=== PATIENT | male | born 1945 | race Caucasian/White ===

== ENCOUNTER 2020-08-20 08:34 | Outpatient (RCR) | payer MEDICARE, SELFPAY ==
[2016-08-11 14:05] VITALS: BMI 27.6
[2020-08-20] MEDS: COVID-19 VACC, MRNA(PFIZER)/PF 30 MCG/0.3 ML SYRINGE IM (14:33)
[2020-09-10] MEDS: COVID-19 VACC, MRNA(PFIZER)/PF 30 MCG/0.3 ML SYRINGE IM (14:18)
== END 2020-11-17 23:59 ==
LOC: IMMUN 08:34
PROVIDERS: PCP Family Medicine; Referring Provider Family Medicine; Visit Provider Family Medicine
DX: Z23 Encounter for immunization (principal)
CPT/HCPCS: 0001A; 0002A; 91300

== ENCOUNTER 2021-06-05 09:05 | Emergency (ER) | payer MEDICARE, SELFPAY ==
[2021-06-05 09:06] VITALS: BP 120/71; PULSE 88; RESP 17; TEMP 36.4; O2SAT 96; BMI 25.8
--- NOTE | 2021-06-05 09:27 | EKG12_ITS ---
Test Reason : Blood Pressure : / mmHG Vent. Rate : 088 BPM Atrial Rate : 088 BPM P-R Int : 144 ms QRS Dur : 076 ms QT Int : 348 ms P-R-T Axes : 050 008 051 degrees QTc Int : 421 ms Normal sinus rhythm Normal ECG Confirmed by PATRICIA VANG, ELSA ([id number]), health editor MEETA BROWN ([id number]) on 06/08/2021 9:43:52 AM Referred By: PC Confirmed By:ELSA GOMEZ MD
--- NOTE | 2021-06-05 09:28 | EDS_ITS ---
HPI History of Present Illness Chief Complaint: Syncope Narrative Narrative: Patient presents with generalized weakness this morning, he got out of bed to go to the bathroom, he felt lightheaded, he was standing up and had a fall he thinks he had a syncopal episode went to help him he got up but still felt lightheaded he about fell on the way back to the bed. Otherwise he arrives to the ED. He has no chest pain or shortness of breath. He did not hit his head he has no neck pain. He has no DVT PE or PE risk factors she has no lower extremity edema. No abdominal pain or back pain or pleuritic components or tearing sensation he denies any palpitations. PFSH PFSH Home Medications levetiracetam 500 mg PO BID 02/15/16 [History Last Taken 08/11/16] losartan 50 mg PO DAILY 02/15/16 [History Last Taken 08/11/16] levothyroxine [Euthyrox] 100 mcg PO DAILY 06/05/21 [History Last Taken Unknown] Allergy/AdvReac Type Severity Reaction Status Date / Time No Known Allergies Allergy Verified 08/11/16 14:07 Social History Smoking Status: Former smoker ROS ROS ED ROS Narrative Past medical history: Reviewed, significant for history of intracranial hemorrhage, he is on Keppra, otherwise he is relatively healthy. Medications: Reviewed Social history: Noncontributory Review of systems: All systems negative except as indicated General: No fever. He does feel lightheaded when he stands up Eyes: No visual changes ENT: No upper airway congestion, normal voice Neck: No neck pain Cardiovascular: No chest pain. Syncope as in HPI. Respiratory: No shortness of breath or cough Gastrointestinal: No abdominal pain, nausea vomiting or diarrhea Genitourinary: No dysuria Musculoskeletal: Denies myalgias no difficulty with ambulation Skin: No rash Neurological: No memory loss, confusion or any focal weakness Psych: No recent behavioral changes Hematologic: No easy bleeding or easy bruising EXAM Physical Exam Narrative Exam Narrative: Physical exam General: Well nourished, Well developed, No Acute Distress Head: Normocephalic, Atraumatic Eyes: Conjunctiva not pale ENT: Dry mucous membranes Neck: Supple, Nontender, No lymphadenopathy Cardiovascular: Regular rate, Regular rhythm Respiratory: No distress, CTA bilaterally Abdomen: Soft, Nontender, Nondistended Back: Nontender, Normal Inspection. Negative for: CVA tenderness Extremities: Nontender, No edema Skin: Normal color, No rash Neurological: Alert, Normal Strength, Normal Sensation Psychological: Normal affect Const Vital Signs: 06/05/21 09:06 06/05/21 09:15 Temperature 97.6 F L Temperature Source Temporal Pulse Rate 88 Respiratory Rate 17 Respiratory Effort Normal Non-Labored Respiratory Pattern Normal Blood Pressure 120/71 Blood Pressure Mean 87 Pulse Ox 96 Oxygen Delivery Method Room Air MDM MDM MDM Narrative Medical decision making narrative: I personally did orthostatic vitals at the bedside, the blood pressure essentially stayed the same but his heart rate went from 89 to 112, he was quite symptomatic, he felt quite light headed when he stood up. After liter fluids I reevaluated him, his heart rate was again around 88 when I walked in the room when I stood him up he went to 95 and he was not symptomatic. The rest of his work-up is unremarkable, I believe the syncopal episode is likely secondary to dehydration he otherwise appears well and will be discharged in stable condition. If anything changes he is to return for Lab Data Labs: Laboratory Results - last 24 hr 06/05/21 06/05/21 09:16 09:16 WBC 6.9 RBC 5.16 Hgb 15.1 Hct 46.0 MCV 89.1 MCH 29.3 MCHC 32.8 RDW Std Deviation 44.7 H RDW Coeff of Víctor 13.6 Plt Count 186 MPV 10.6 Immature Gran % (Auto) 0.900 Neut % (Auto) 74.1 H Lymph % (Auto) 12.9 L [place] % (Auto) 11.3 H Eos % (Auto) 0.4 Baso % (Auto) 0.4 Absolute Neuts (auto) 5.1 Absolute Lymphs (auto) 0.89 Nucleated RBC % 0 Sodium 137 Potassium 4.4 Chloride 106 Carbon Dioxide 27.0 Anion Gap 4 L BUN 20 H Creatinine 1.29 Estim Creat Clear Calc 49.48 Est GFR (MDRD) Af Amer 70 Est GFR (MDRD) Non-Af 58 L BUN/Creatinine Ratio 15.5 Glucose 128 H Calcium 8.8 Total Bilirubin 0.50 AST 19 ALT 18 Alkaline Phosphatase 90 Troponin I High Sens 7 Total Protein 7.4 Albumin 3.3 Globulin 4.1 Albumin/Globulin Ratio 0.8 L EKG Initial EKG: Comments: Sinus rhythm with a rate of 88. Normal WA and QTc intervals. No LVH. No Brugada. No ischemic changes. Interpreted by emergency doctor. Discharge Plan Triage Chief Complaint: Syncope ED Provider: Akhil Roblero Dx/Rx/DC Orders Clinical Impression: Syncope, Dehydration Instructions: Causes of Syncope, Dehydration Prescriptions: No Action losartan 50 MG tablet 50 mg PO DAILY RF: 0 levetiracetam 500 MG tablet 500 mg PO BID RF: 0 levothyroxine [Euthyrox] 100 mcg tablet 100 mcg PO DAILY RF: 0 Primary Care Provider: Chrissy Elizabeth Referrals: Chrissy Elizabeth MD [Primary Care Provider] - Disposition Disposition: Home, Self Care
[2021-06-05 09:37] LABS: Absolute Lymphocyte Count 0.89 X10^3/uL (0.83-4.51); Absolute Neutrophil Count 5.1 X10^3/uL (2.0-7.7); Basophil# 0.03 X10^3/uL; Basophil% 0.4 % (0-1); Eosinophil# 0.03 X10^3/uL; Eosinophils% 0.4 % (0-5); Hemoglobin 15.1 g/dL (13.0-16.5); Lymphocyte # 0.89 X10^3/ul (0.83-4.51); Lymphocyte % 12.9 % (19-41); Mean Corp Hgb Conc 32.8 g/dL (32-36); Mean Corpuscular Hgb 29.3 pg (27.0-32.0); Mean Corpuscular Volume 89.1 fL (80-94); Mean Platelet Vol. 10.6 fl (6.2-12.0); Monocyte# 0.78 X10^3/uL; Monocyte% 11.3 % (0-10); NRBC Flagged by Analyzer 0 % (0-5); Neutrophil # 5.11 X10^3/uL (2.7-7.7); Neutrophil % 74.1 % (47-70); Platelet Count 186 K/mm3 (150-450); RBC Distribution Width CV 13.6 % (11.6-14.6); RBC Distribution Width SD 44.7 fl (35.1-43.9); Red Blood Count 5.16 M/mm3 (4.6-6.2); White Blood Count 6.9 K/mm3 (4.4-11.0)
[2021-06-05] MEDS: 0.9% Normal Saline 1,000 ML 1000 ML IV (09:53)
[2021-06-05 09:54] LABS: ALB/GLOB Ratio 0.8 RATIO (0.9-2.4); AST(SGOT) 19 U/L (15-37); Alanine Aminotransfer ALT/SGPT 18 U/L (16-61); Albumin, Serum 3.3 g/dL (3.2-5.0); Alkaline Phosphatase 90 U/L (45-117); Anion Gap 4 (5-15); BUN 20 mg/dL (7-18); BUN/Creat Ratio 15.5 RATIO (10-20); Calcium,Total 8.8 mg/dL (8.5-10.1); Chloride 106 mmol/L (98-107); Creatinine, Serum 1.29 mg/dL (0.70-1.30); EST Glomerular Filtration Rate 58 mL/min (>60); Est Glom Filt Rate - Afr Amer 70 mL/min (>60); Estimated Creatinine Clearance 49.48 ml/min; Globulin 4.1 g/dL (2.2-4.2); Glucose 128 mg/dL (74-106); Potassium 4.4 mmol/L (3.5-5.1); Protein, Total 7.4 g/dL (6.4-8.2); Sodium Level 137 mmol/L (136-145); Troponin-I HS 7 pg/mL (3.0-78.0)
[2021-06-05 10:47] VITALS: BP 134/62; PULSE 71; RESP 15; O2SAT 98
== END 2021-06-05 10:47 | disposition home or self-care (01) ==
PROVIDERS: Emergency Provider Emergency Medicine; PCP Family Medicine
DX: R55 Syncope and collapse (principal); E86.0 Dehydration; Z87.891 Personal history of nicotine dependence; Z86.73 Personal history of transient ischemic attack (TIA), and cerebral infarction without residual deficits; Z79.899 Other long term (current) drug therapy
CPT/HCPCS: 80053; 84484; 85025; 93005; 99285; J7030; A4216

== ENCOUNTER 2021-08-31 10:41 | Inpatient (IN) | payer MEDICARE, SELFPAY ==
[2021-08-31] VITALS (16 sets, daily range): BP systolic 107–152; BP diastolic 56–80; PULSE 63–76; RESP 16–28; TEMP 36.4–36.8; O2SAT 95–100; BMI 26.7; BMI 26.3
--- NOTE | 2021-08-31 10:50 | EDS_ITS ---
HPI History of Present Illness Chief Complaint: Chest Pain Detail of Chief Complaint: Chest pain that started last evening Informant: patient Narrative Narrative: Patient presents to the emergency department complaint of chest pain that started last evening around 11 PM. Patient states that it lasted for a couple of hours. Patient did take Tylenol and seemed to ease off and he was able to sleep all night. He did not have the pain when he woke up. Patient noticed that the pain came back when he started walking this morning. Describes a dull all heavy discomfort in the left side of his chest without any radiation. He denies shortness of breath or diaphoresis. Patient tells me he had a similar pain couple weeks ago when he was shoveling snow. He has no heart history otherwise. There is a family history of heart disease. Prior Similar Symptoms: Yes CVD Risk Factors: Positive for Hypertension PFSH PFSH Home Medications levetiracetam 500 mg PO BID 02/15/16 [History Last Taken 08/11/16] losartan 50 mg PO DAILY 02/15/16 [History Last Taken 08/11/16] levothyroxine [Euthyrox] 100 mcg PO DAILY 06/05/21 [History Last Taken Unknown] Allergy/AdvReac Type Severity Reaction Status Date / Time No Known Allergies Allergy Verified 08/31/21 10:47 Surgical History (Updated 08/31/21 @ 10:47 by Tami Kaur) Hx of brain surgery Social History Smoking Status: Former smoker ROS ROS ED Review of Systems ROS Unobtainable: other Constitutional Constitutional ED: Reports lethargy; Denies chills, fever(s), sweats or weight loss Eyes Eyes: Denies blurry vision, change in vision or diplopia ENT ENT ED: Denies rhinorrhea or sore throat Cardiovascular Cardiovascular: Reports chest pain; Denies orthopnea or racing heartbeat Respiratory/Chest Respiratory/Chest: Reports dyspnea and dyspnea on exertion; Denies cough, orthopnea or sputum Gastrointestinal Gastrointestinal: Denies abdominal pain, diarrhea, nausea or vomiting Genitourinary Genitourinary ED: Denies dysuria, hematuria or urinary frequency Musculoskeletal Musculoskeletal: Denies arthralgias, back pain, myalgias or neck pain Integumentary Denies abscess, Abrasions or rash Neurologic Neurologic: Denies headache(s) or weakness Psychiatric Psychiatric: Denies anxiety, depression or suicidal thoughts Endocrine Endocrinology: Denies polydipsia, polyphagia or polyuria Hematologic/Lymphatic Hematologic/Lymphatic: Denies easy bleeding, easy bruising or lymphadenopathy Allergic/Immunologic Allergic/Immunologic ED: Denies mouth swelling, tongue swelling or urticaria EXAM Physical Exam Const Vital Signs: 08/31/21 10:42 08/31/21 10:54 08/31/21 11:06 Temperature 97.5 F L Temperature Source Temporal Pulse Rate 76 Respiratory Rate 28 H Respiratory Pattern Tachypnea Blood Pressure 152/80 H Blood Pressure Mean 104 Pulse Ox 100 Oxygen Delivery Method Room Air Nasal Cannula Oxygen Flow Rate (L/min) 2 Positive well nourished and well developed General Appearance ED: well developed and NAD HEENT Reports TM's clear and moist mucous membranes normocephalic and atraumatic; Negative for trauma or tenderness Tympanic Membrane ED: Yes TM's clear Eyes PERRL and EOMs intact bilaterally General Eye ED: Negative for pale conjunctiva or scleral icterus Neck no lymphadenopathy, supple and no JVD General: Negative for tenderness Chest Wall inspection of chest normal and palpation of chest normal Chest: Negative for tenderness Resp normal respiratory effort and clear to auscultation bilaterally Effort and Inspection: Negative for respiratory distress or pain with movement Auscultation: Negative for rhonchi, wheezes or diminished lung sounds Cardio regular rate, regular rhythm, S1 normal heart sound, S2 normal heart sound and no murmurs Peripheral Pulses: pulses 2+ throughout GI normal to inspection, nondistended, normoactive bowel sounds, soft to palpation, non-tender, non-distended and no masses Back/Spine no CVA tenderness and no thoracic nor lumbar tenderness Extremity normal to inspection General Extremety ED: Negative for edema General Extremity: Negative for edema Neuro oriented x3, CN's II-XII intact bilaterally, no sensory deficits noted and gait normal Sensorium / Orientation: awake, alert, oriented to person, oriented to place and oriented to time Motor Exam: strength 5/5 throughout and strength abnormal Psych mental status grossly normal Skin no rashes or lesions noted and no wounds Heart Score History: Highly Suspicious ECG: Normal Age: >/= 65 years Risk Factors: 1 or 2 Risk Factors Troponin: >/=3 x Normal Limit Score: 7 MDM MDM MDM Narrative Medical decision making narrative: IV line established on arrival. Patient received aspirin. Patient was noted to have elevated troponin. Patient started on a heparin drip and was given an inch of Nitropaste to the anterior chest wall. Case will be discussed with hospitalist evaluate for admission for non- STEMI. Lab Data Attestation: I reviewed the patient's lab results. Labs: Laboratory Results - last 24 hr 08/31/21 08/31/21 08/31/21 10:45 10:45 10:45 WBC 7.2 RBC 5.30 Hgb 16.2 Hct 47.6 MCV 89.8 MCH 30.6 MCHC 34.0 RDW Std Deviation 45.8 H RDW Coeff of Víctor 13.9 Plt Count 273 MPV 10.0 Immature Gran % (Auto) 1.100 H Neut % (Auto) 62.7 Lymph % (Auto) 23.5 [place] % (Auto) 5.8 Eos % (Auto) 6.1 H Baso % (Auto) 0.8 Absolute Neuts (auto) 4.5 Absolute Lymphs (auto) 1.70 Nucleated RBC % 0 D-Dimer Quant (PE/DVT) 0.50 H Sodium 138 Potassium 4.2 Chloride 106 Carbon Dioxide 28.0 Anion Gap 4 L BUN 19 H Creatinine 1.15 Estim Creat Clear Calc 55.50 Est GFR (MDRD) Af Amer 80 Est GFR (MDRD) Non-Af 66 BUN/Creatinine Ratio 16.5 Glucose 147 H Calcium 9.7 Troponin I High Sens 569 H* Radiography Chest X-Ray - ED: 1 View Diagnostic Testin view chest x-ray obtained interpreted by myself as no acute disease process. Official report from radiology pending EKG Initial EKG: Attestation: I personally reviewed and interpreted this EKG as follows: Comments: Sinus rhythm with a rate of 78 bpm with no acute ST segment changes Discharge Plan Triage Chief Complaint: Chest Pain ED Provider: Michael Dunham Dx/Rx/DC Orders Clinical Impression: Chest pain, Non-ST elevated myocardial infarction (non-STEMI) Prescriptions: No Action losartan 50 MG tablet 50 mg PO DAILY RF: 0 levetiracetam 500 MG tablet 500 mg PO BID RF: 0 levothyroxine [Euthyrox] 100 mcg tablet 100 mcg PO DAILY RF: 0 Primary Care Provider: Chrissy Elizabeth Referrals: Chrissy Elizabeth MD [Primary Care Provider] - Disposition Disposition: Acute Care [facility]
[2021-08-31 11:00] LABS: Absolute Neutrophil Count 4.5 X10^3/uL (2.0-7.7); Basophil# 0.06 X10^3/uL; Basophil% 0.8 % (0-1); Eosinophil# 0.44 X10^3/uL; Eosinophils% 6.1 % (0-5); Hematocrit 47.6 % (40-54); Hemoglobin 16.2 g/dL (13.0-16.5); Lymphocyte % 23.5 % (19-41); Mean Corpuscular Hgb 30.6 pg (27.0-32.0); Mean Corpuscular Volume 89.8 fL (80-94); Monocyte# 0.42 X10^3/uL; Monocyte% 5.8 % (0-10); NRBC Flagged by Analyzer 0 % (0-5); Neutrophil # 4.53 X10^3/uL (2.7-7.7); Neutrophil % 62.7 % (47-70); Platelet Count 273 K/mm3 (150-450); RBC Distribution Width CV 13.9 % (11.6-14.6); RBC Distribution Width SD 45.8 fl (35.1-43.9); White Blood Count 7.2 K/mm3 (4.4-11.0)
--- NOTE | 2021-08-31 11:00 | EKG12_ITS ---
Test Reason : CP Blood Pressure : / mmHG Vent. Rate : 078 BPM Atrial Rate : 078 BPM P-R Int : 150 ms QRS Dur : 078 ms QT Int : 362 ms P-R-T Axes : 057 038 071 degrees QTc Int : 412 ms Normal sinus rhythm Normal ECG Confirmed by PATRICIA VANG, ELSA ([id number]), continuity editor MEETA BROWN ([id number]) on 09/02/2021 9:15:55 AM Referred By: LOUIS Confirmed By:ELSA GOMEZ MD
[2021-08-31] MEDS: Aspirin 81 MG TAB.CHEW 324 MG PO (11:01)
[2021-08-31] MEDS: 0.9% Normal Saline 1,000 ML 150 ML IV (11:01)
--- NOTE | 2021-08-31 11:15 | RAD_ITS ---
STUDY: X-RAY CHEST REASON FOR EXAM: Male, 76 years old. Chest pain TECHNIQUE: Single AP portable view of the chest. COMPARISON: Comparison is made with prior study dated 04/03/2012. FINDINGS: EKG electrodes are seen. Stable mild left lung base suggestive of scarring. There is no demonstrated pleural abnormality. Normal size heart. Normal mediastinum and lito. Normal visualized pulmonary arteries. There is atherosclerotic calcification of the aortic arch with tortuosity. There are diffuse degenerative changes of the visualized thoracic spine. Normal visualized ribs, clavicles, and shoulders. There is no demonstrated abnormality of the visualized soft tissue structures of the upper abdomen. RAD/Chest 1 View (Portable) IMPRESSION: No acute abnormality is seen. Electronically Signed: Britton Toro MD at 12:12 EDT ,
[2021-08-31 11:27] LABS: Anion Gap 4 (5-15); BUN 19 mg/dL (7-18); BUN/Creat Ratio 16.5 RATIO (10-20); Calcium,Total 9.7 mg/dL (8.5-10.1); Chloride 106 mmol/L (98-107); Creatinine, Serum 1.15 mg/dL (0.70-1.30); EST Glomerular Filtration Rate 66 mL/min (>60); Est Glom Filt Rate - Afr Amer 80 mL/min (>60); Glucose 147 mg/dL (74-106); Potassium 4.2 mmol/L (3.5-5.1); Sodium Level 138 mmol/L (136-145); Troponin-I HS 569 pg/mL (3.0-78.0)
--- NOTE | 2021-08-31 11:38 | NURSING ---
DR SANTANA FOR DR KELLY
--- NOTE | 2021-08-31 11:48 | CASEMGMT ---
According to the [facility] website, the following are in-network tertiary facilities: [facility], [facility], [facility], [facility], [facility], [facility], [facility], [facility], and . Rupesh YOUNG CM
[2021-08-31] MEDS: Heparin Injection (Vial) 5,000 UNIT/ML VIAL 6000 UNIT IV (11:51)
--- NOTE | 2021-08-31 11:53 | NURSING ---
PCU ESTHER ACS, NSTEMI
[2021-08-31] MEDS: Nitroglycerin Oint 1 INCH PACKET TD ×2 (11:55→22:11)
[2021-08-31 12:09] LABS: Prothrombin Time (Protime)PT. 12.9 SECONDS (11.7-14.9)
--- NOTE | 2021-08-31 12:23 | CON.PCM.CA_ITS ---
Assessment & Plan Assessment/Plan (1) Non-ST elevated myocardial infarction (non-STEMI): PLAN: The patient presents with symptoms concerning for unstable angina pectoris and objective findings concerning for an acute non-ST segment elevation WV. His cardiac enzymes do not appear to be explained by another obvious etiology at this time. His ECG demonstrates no acute electrocardiographic changes. He has been placed on additional medical therapy by the [facility] emergency department staff with aspirin, nitroglycerin ointment, and IV heparin. He has been recommended for further evaluation with diagnostic cardiac catheterization. The procedure and risk were discussed with him. He was agreeable to this approach. (2) HTN (hypertension): PLAN: The patient has a history of hypertension. He states he has been on antihypertensive therapy with losartan. (3) Cerebral arteriovenous malformation: PLAN: The patient appears to have a history of cerebral AV malformation. He has undergone a remote evaluation and care for this at the [facility]-2010. (4) History of intracranial hemorrhage: PLAN: The pain is a history of intracranial hemorrhage related to the aforementioned diagnosis. 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 He has had no recurrent [employer] events since that time. Addt'l Comments The patient's case was discussed and reviewed with patient, spouse, and Dr. Vilchis. This note was generated using a voice recognition system and there may be incorrect words, spelling or punctuation that were not noted when reviewing the office note prior to saving. 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 The patient states that he has been well until approximately 2 weeks ago. At that time he was shoveling snow. He developed chest discomfort. He went inside, got warm, and rested. He was able to return outside and shovel snow although only for a brief period of time. He had to stop again, go inside, get warm, and rest. He states both times when he was resting his discomfort dissipated. Since that time he has noted intermittent chest discomfort. He had chest discomfort yesterday evening. He took aspirin x2. He was eventually able to sleep. He noted this morning after being awake he had recurrent left-sided chest discomfort. He presented to a local urgent care. He states that he was told at the time that there was nothing they could do for me . He went to get something to eat. After eating he subsequently presented to the emergency department for further evaluation. He notes his chest discomfort was left precordial. It did not radiate. He does not recall having any associated nausea, emesis, or diaphoresis. He denies any orthopnea, PND, or peripheral pitting edema. There has been no near-syncope or syncope recently. He states that on 2020 he had a syncopal event. He states he was evaluated at the emergency department and told it was related to dehydration. He notes since his WINDOWS INF[employer] ENGINEER surgery performed in 2010 he has had no recurrent W[employer]OWS [employer]ER events and has not required any long-term WINDOWS [employer]ER follow-up. Upon presentation he was evaluated. He had an abnormal troponin I level of 569. His ECG demonstrated sinus rhythm with no acute ECG changes. His chest x-ray did not appear to demonstrate any acute radiologic findings. He was referred for further evaluation with diagnostic cardiac catheterization. [facility] Medical History (Updated 08/31/21 @ 12:[address] Akhil Mooney MD) HTN (hypertension) Home Medications levetiracetam 500 mg PO BID 02/15/16 [History Last Taken 08/11/16] losartan 50 mg PO DAILY 02/15/16 [History Last Taken 08/11/16] levothyroxine [Euthyrox] 100 mcg PO DAILY 06/05/21 [History Last Taken Unknown] Allergy/AdvReac Type Severity Reaction Status Date / Time No Known Allergies Allergy Verified 08/31/21 10:47 Family History (Updated 08/31/21 @ 12:[address] Akhil Mooney MD) Mother CAD (coronary artery disease) Surgical History Hx of brain surgery Social History Smoking Status: Former smoker ROS Constitutional Constitutional: Reports as per HPI Eyes Eyes: Reports as per HPI ENT HEENT: Reports as per HPI Cardiovascular Cardiovascular: Reports chest pain, chest pain at rest and chest pain with activity Respiratory/Chest Respiratory/Chest: Reports none Gastrointestinal Gastrointestinal: Reports none Genitourinary Genitourinary: Reports none Musculoskeletal Musculoskeletal: Reports none Integumentary Integumentary: Reports none Neurologic Neurologic: Reports none Psychiatric Psychiatric: Reports none Physical Exam Const alert, oriented x3 and healthy appearing Orientation / Consciousness: awake HEENT normocephalic, head/scalp atraumatic and hearing grossly normal bilaterally Eyes PERRL and EOMs intact bilaterally Neck full ROM, supple and no JVD Resp clear to auscultation bilaterally Cardio regular rate, regular rhythm, S1 normal heart sound and S2 normal heart sound GI normal to inspection, nondistended, normoactive bowel sounds Extremity no pedal edema Skin no rashes or lesions noted Neuro oriented x3, moves all extremities, no focal motor deficits and no sensory deficits noted Psych mental status grossly normal Risk Stratification Risk Stratification Applicable: Yes Age >/= 65: Yes >/= 3 CAD Risk Factors (HTN, HLD, DM, family hx of CAD, or current smoker): No Aspirin Use in the Past 7 Days: No Severe Angina (>/= episodes in 24 hours): Yes EKG ST Changes >/= 0.5mm: No Positive Cardiac Marker: Yes RUTHIE Risk Stratification Score: 3 RUTHIE % Risk: 13% Risk Procedure Criteria Type of Procedure Procedure Type: Elective Elective Risks - COVID COVID Risk Discussion: The surgeon/proceduralist and patient have discussed in detail the risk of exposure to and/or potential harm posed by the COVID-19 virus with having a surgery/procedure at this time versus the risk of delaying the surgery/procedure. It is not possible to know either the risk of delaying the surgery or procedure or chance of getting an infection with perfect accuracy, but a joint decision was made between the patient and the surgeon/proceduralist to proceed at this time with the scheduled surgery/procedure as indicated on the consent form. Objective Data Vital Signs: Vital Signs Temp Pulse Resp BP Pulse Ox 97.5 F L 76 28 H 131/75 H 100 08/31/21 10:42 08/31/21 11:55 08/31/21 10:42 08/31/21 11:55 08/31/21 10:42 Oxygen Flow Rate (L/min) 2 Oxygen Delivery Method Nasal Cannula Weight: 180 lb 15.992 oz Body Mass Index (BMI) 26.7 Lab / Micro Data Result Diagrams: 08/31/21 10:45 08/31/21 10:45 Labs: Laboratory Results - last 24 hr 08/31/21 10:45: WBC 7.2, RBC 5.30, Hgb 16.2, Hct 47.6, MCV 89.8, MCH 30.6, MCHC 34.0, RDW Std Deviation 45.8 H, RDW Coeff of Víctor 13.9, Plt Count 273, MPV 10.0, Immature Gran % (Auto) 1.100 H, Neut % (Auto) 62.7, Lymph % (Auto) 23.5, [place] % (Auto) 5.8, Eos % (Auto) 6.1 H, Baso % (Auto) 0.8, Absolute Neuts (auto) 4.5, Absolute Lymphs (auto) 1.70, Nucleated RBC % 0 08/31/21 10:45: Sodium 138, Potassium 4.2, Chloride 106, Carbon Dioxide 28.0, Anion Gap 4 L, BUN 19 H, Creatinine 1.15, Estim Creat Clear Calc 55.50, Est GFR (MDRD) Af Amer 80, Est GFR (MDRD) Non-Af 66, BUN/Creatinine Ratio 16.5, Glucose 147 H, Calcium 9.7, Troponin I High Sens 569 H* 08/31/21 10:45: D-Dimer Quant (PE/DVT) 0.50 H 08/31/21 10:45: PT 12.9, INR 1.0, APTT 34.0 Cardiology Labs/Tests 08/31/21 10:45: WBC 7.2, RBC 5.30, Hgb 16.2, Hct 47.6, MCV 89.8, MCH 30.6, MCHC 34.0, Plt Count 273, MPV 10.0, Immature Gran % (Auto) 1.100 H, Neut % (Auto) 62.7, Lymph % (Auto) 23.5, [place] % (Auto) 5.8, Eos % (Auto) 6.1 H, Baso % (Auto) 0.8, Absolute Neuts (auto) 4.5, Nucleated RBC % 0 08/31/21 10:45: Sodium 138, Potassium 4.2, Chloride 106, Carbon Dioxide 28.0, Anion Gap 4 L, BUN 19 H, Creatinine 1.15, Est GFR (MDRD) Af Amer 80, Est GFR (MDRD) Non-Af 66, BUN/Creatinine Ratio 16.5, Glucose 147 H, Calcium 9.7 08/31/21 10:45: D-Dimer Quant (PE/DVT) 0.50 H 08/31/21 10:45: PT 12.9, INR 1.0, APTT 34.0 Rhythm: Sinus rhythm EKG: Sinus rhythm Radiography Diagnostic Testing: Radiology Impression Chest X-Ray 08/31/21 11:15 IMPRESSION: No acute abnormality is seen. Electronically Signed: Britton Toro MD at 12:12 EDT ,
[2021-08-31] MEDS: 0.9% Normal Saline 1,000 ML 75 ML IV (14:08)
--- NOTE | 2021-08-31 14:21 | CL.D_ITS ---
Patient Name: DERICK ROGER Study Date: 08/31/2021 Performing: Akhil Mooney MD Ht: 69 inches 175 cm : 1945 Wt: 181 lbs 82 kg Age: 76 Gender: male BSA: 1.98 PROCEDURE(S) PERFORMED [id number])LHC/COR/LV CLINICAL PROFILE AND INDICATIONS Indications: ACS <= 24 hrs, Worsening Angina, Suspected CAD Heart Failure: None Stress/Imaging Stress/Image Study Performed: No Angina Classification Anginal Classification w/in 2 Weeks: CCS IV CAD Presentations: Non-STEMI. CONCLUSIONS Normal Left Ventricular End Diastolic Pressure Normal LV size, wall motion,and systolic function LVEF: by LV gram 65 % [place] Multivessel CAD RECOMMENDATIONS Risk factor modification Medical therapy Surgery consult for coronary revascularization DESCRIPTION OF PROCEDURE The patient arrived to the procedure lab. The risks and benefits of the procedure as well as a full d escription of our services here and current unavailability of surgical backup were fully explained to the patient and/or their significant other prior to the catheterization. The Timeout was completed, verifying the correct patient and procedure. The patient's procedural site was prepped and draped in the usual fashion. Local anesthetic was given subcutaneously to right radial region with Lidocaine 2% . Using a modified Seldinger technique, arterial access was obtained via the right radial artery, a 6 Fr sheath was inserted. Left Coronary Artery selective angiography was performed in multiple views u sing a 5 Fr. 4.0 [place] catheter. Right Coronary Artery selective angiography was then performed in mu ltiple views using a 5 Fr. JR 4 catheter. Left Ventriculography was performed in ALICEA projection using a 5 Fr. Pigtail catheter. LV to AO pullback pressures were then recorded.The arterial sheath was pulled and a TR Band was applied for hemostasis - 10cc air CORONARY ANGIOGRAPHY DOMINANCE: Right Dominant LEFT HEART ASSESSMENT Left Ventricular Ejection Fraction: by LV Gram 65 % Normal LV wall motion Normal Left Ventricular End Diastolic Pressure LVEDP: 4 mmHg LEFT MAIN: Mild calcification, distal: 75 % Stenosis LEFT ANTERIOR DESCENDING ARTERY: Mild luminal irregularities PROX LAD: Mild calcification CIRCUMFLEX ARTERY: PROX CIRC: Mild luminal irregularities OM 1: Proximal - 85 % Stenosis RIGHT CORONARY ARTERY: MID RCA: is occluded DISTAL RCA: /PRDA/RAVS/RPL: fills from left to right collateral flow COLLATERAL FLOW: Collateral flow from Left to Right AORTIC ROOT: Angiographically normal COMPLICATIONS No Complications PROCEDURE MEDICATIONS Versed 1 mg IV Fentanyl 50 mcg IV Oxygen: 2 L/min via nasal cannula Heparin 25,000u / 250ml D5W discontinued 08/31/2021 12:52:22 Heparin given IA 08/31/2021 13:05:06 Verapamil 2.5mg, Ntg 100mcgs, 3000 units of Heparin given IA 08/31/2021 13:05:06 SUMMARY OF HEMODYNAMIC DATA Time AIR REST ECG 12:46:41 AO 100/61 (79) SA 13:07:52 LV 139/-27, 5 13:17:21 LV 140/-26, 4 13:17:27 LV 135/-21, 10 13:18:39 LV 136/-21, 10 13:18:46 LVp 135/-22, 11 13:18:58 AOp 107/54 (77) 13:19:03 Signed By Akhil Mooney MD On 08/31/2021 14:20:20 Akhil Mooney MD
--- NOTE | 2021-08-31 19:27 | HP.PCM.HOS_ITS ---
HPI - General General Date of Admission: 08/31/21 Date of Service: 08/31/21 Chief Complaint: Chest pain HPI Narrative DERICK ROGER, is a 76 M who presents to the emergency room at [facility] with a chief complaint of chest pain intermittently over the last 2 weeks. Patient had an episode 2 weeks ago when he was shoveling snow and then he had another episode yesterday at rest and then finally today he had another episode while he was walking. Patient states his chest discomfort was located in the left precordial region, and did not radiate, patient denied any nausea or vomiting. He described the chest discomfort as dull and heavy in nature. Work-up was done in the emergency room which showed an elevated tropo migdalia, EKG showed a normal sinus rhythm without evidence of ischemic changes. Patient's chest x-ray was unremarkable. I contacted cardiology and patient underwent a cardiac catheterization directly from the emergency room, this showed triple-vessel disease with a normal LV function, distal left main disease with high-grade stenosis, high-grade stenosis in the LAD, high-grade stenosis in the circumflex artery, and finally right coronary artery occlusion in the distal region with collaterals. It was advised that the patient should be transferred to a tertiary center for evaluation concerning bypass surgery. Patient was admitted to PCU for acute non-STEMI, he will be maintained on an aspirin, a statin, a beta-praveen, and an ARB. Patient will be maintained on a heparin drip. I talked at length with the patient's daughter and who are in the room at the time of my examination. COUNTS INCLUDE 234 BEDS AT THE [facility] Medical History (Updated 08/31/21 @ 16:29 by Geni George) Atherosclerotic heart disease of [place] coronary artery without angina pectoris History of left heart catheterization (LHC) (~08/31/21) HTN (hypertension) Home Medications levetiracetam 500 mg PO BID 02/15/16 [History Last Taken 08/11/16] losartan 50 mg PO DAILY 02/15/16 [History Last Taken 08/11/16] levothyroxine [Euthyrox] 100 mcg PO DAILY 06/05/21 [History Last Taken Unknown] Allergy/AdvReac Type Severity Reaction Status Date / Time No Known Allergies Allergy Verified 08/31/21 10:47 Family History (Updated 08/31/21 @ 12:[address] Akhil Mooney MD) Mother CAD (coronary artery disease) Surgical History Hx of brain surgery Social History Smoking Status: Former smoker ROS Constitutional Constitutional: Denies anorexia, change in weight, fever(s), night sweats or weakness Eyes Eyes: Denies blurry vision, change in vision, discharge from eye(s) or eye pain Cardiovascular Cardiovascular: Reports chest pain; Denies claudication, dyspnea on exertion, edema, lightheadedness or palpitations Respiratory/Chest Respiratory/Chest: Denies cough, dyspnea, hemoptysis, productive cough, shortness of breath at rest or shortness of breath with exertion Gastrointestinal Gastrointestinal: Denies abdominal pain, constipation, diarrhea, hematemesis, hematochezia, melena, nausea or vomiting Genitourinary Genitourinary: Denies dysuria, hematuria, urinary frequency, urinary hesitancy, urinary incontinence or urinary urgency Musculoskeletal Musculoskeletal: Denies back pain, joint pain, joint stiffness, joint swelling, myalgias or neck pain Neurologic Neurologic: Denies abnormal gait, abnormal speech, dizziness, focal weakness, headache(s), loss of vision, numbness, other visual disturbances, paresthesias, syncope or tingling Psychiatric Psychiatric: Denies anxiety, cognitive impairment, depression, irritability, mood swings or suicidal ideation Endocrine Endocrinology: Denies change in body appearance, cold intolerance, excessive sweating, heat intolerance, polydipsia or polyuria Hematologic/Lymphatic Hematologic/Lymphatic: Denies none, anemia, easy bleeding, easy bruising or lymphadenopathy Allergic/Immunologic Allergic/Immunologic: Denies rhinitis, urticaria, eczemia or asthma Vital Signs Vital Signs Vital Signs: 08/31/21 10:42 08/31/21 10:54 08/31/21 11:06 Temperature 97.5 F L Temperature Source Temporal Pulse Rate 76 Respiratory Rate 28 H Respiratory Effort Respiratory Depth Respiratory Pattern Tachypnea Blood Pressure 152/80 H Blood Pressure Mean 104 Blood Pressure Source Blood Pressure Position Blood Pressure Location Pulse Ox 100 Oxygen Delivery Method Room Air Nasal Cannula Oxygen Flow Rate (L/min) 2 08/31/21 11:55 08/31/21 12:35 08/31/21 13:45 Temperature 97.5 F L 98.2 F Temperature Source Temporal Oral Pulse Rate 76 76 67 Respiratory Rate 16 18 Respiratory Effort Respiratory Depth Respiratory Pattern Blood Pressure 131/75 H 131/75 H 117/63 Blood Pressure Mean 93 81 Blood Pressure Source Monitor Blood Pressure Position Semi-Fowlers Blood Pressure Location Left Arm Pulse Ox 100 95 Oxygen Delivery Method Nasal Cannula Room Air Oxygen Flow Rate (L/min) 2 08/31/21 14:00 08/31/21 14:08 08/31/21 14:14 Temperature 98.2 F 98.2 F Temperature Source Oral Oral Pulse Rate 70 66 Respiratory Rate 18 18 Respiratory Effort Normal Non-Labored Respiratory Depth Normal Respiratory Pattern Normal Blood Pressure 123/66 H 122/71 H Blood Pressure Mean 85 88 Blood Pressure Source Monitor Monitor Blood Pressure Position Semi-Fowlers Semi-Fowlers Blood Pressure Location Left Arm Left Arm Pulse Ox 97 97 Oxygen Delivery Method Room Air Room Air Room Air Oxygen Flow Rate (L/min) 08/31/21 14:30 08/31/21 14:31 08/31/21 14:45 Temperature 98.2 F 98.2 F Temperature Source Oral Oral Pulse Rate 69 67 69 Respiratory Rate 18 18 Respiratory Effort Respiratory Depth Respiratory Pattern Blood Pressure 107/56 L 116/59 L Blood Pressure Mean 73 78 Blood Pressure Source Monitor Monitor Blood Pressure Position Semi-Fowlers Semi-Fowlers Blood Pressure Location Left Arm Left Arm Pulse Ox 97 99 Oxygen Delivery Method Room Air Room Air Oxygen Flow Rate (L/min) 08/31/21 15:00 08/31/21 15:30 Temperature 98.0 F 98.0 F Temperature Source Oral Oral Pulse Rate 64 67 Respiratory Rate 18 18 Respiratory Effort Respiratory Depth Respiratory Pattern Blood Pressure 122/61 H 116/58 L Blood Pressure Mean 81 77 Blood Pressure Source Monitor Monitor Blood Pressure Position Semi-Fowlers Supine Blood Pressure Location Left Arm Left Arm Pulse Ox 100 98 Oxygen Delivery Method Room Air Room Air Oxygen Flow Rate (L/min) Weight Weight: 80.9 kg Body Mass Index (BMI) 26.3 Physical Exam Const alert, oriented x3, no apparent distress and healthy appearing General Appearance: cooperative, well kempt and well developed Orientation / Consciousness: awake, oriented to person, oriented to place and oriented to time HEENT normocephalic, head/scalp atraumatic and moist oral mucous membranes Eyes PERRL, EOMs intact bilaterally and conjunctivae normal Neck nuchal rigidity, supple, no JVD, thyroid normal and no carotid bruits General: trachea midline Resp normal respiratory effort, no retractions, no use of accessory muscles and clear to auscultation bilaterally Auscultation: Negative for rales, rhonchi or wheezes Cardio regular rate, regular rhythm, S1 normal heart sound, S2 normal heart sound, no murmurs, no rub and no gallops GI normal to inspection, nondistended, normoactive bowel sounds, soft to palpation, non-tender and non-distended Extremity no clubbing, cyanosis or edema Skin no rashes or lesions noted General Skin Exam: no breakdown Neuro oriented x3, CN's II-XII intact bilaterally, no focal motor deficits and no sensory deficits noted Sensorium / Orientation: awake and alert Speech: speech normal Psych affect normal Results Lab / Micro Data Result Diagrams: 08/31/21 10:45 08/31/21 10:45 Labs: Laboratory Results - last 24 hr 08/31/21 10:45: WBC 7.2, RBC 5.30, Hgb 16.2, Hct 47.6, MCV 89.8, MCH 30.6, MCHC 34.0, RDW Std Deviation 45.8 H, RDW Coeff of Víctor 13.9, Plt Count 273, MPV 10.0, Immature Gran % (Auto) 1.100 H, Neut % (Auto) 62.7, Lymph % (Auto) 23.5, [place] % (Auto) 5.8, Eos % (Auto) 6.1 H, Baso % (Auto) 0.8, Absolute Neuts (auto) 4.5, Absolute Lymphs (auto) 1.70, Nucleated RBC % 0 08/31/21 10:45: Sodium 138, Potassium 4.2, Chloride 106, Carbon Dioxide 28.0, Anion Gap 4 L, BUN 19 H, Creatinine 1.15, Estim Creat Clear Calc 55.50, Est GFR (MDRD) Af Amer 80, Est GFR (MDRD) Non-Af 66, BUN/Creatinine Ratio 16.5, Glucose 147 H, Calcium 9.7, Troponin I High Sens 569 H* 08/31/21 10:45: D-Dimer Quant (PE/DVT) 0.50 H 08/31/21 10:45: PT 12.9, INR 1.0, APTT 34.0 Radiology Impression Chest X-Ray 08/31/21 11:15 IMPRESSION: No acute abnormality is seen. Electronically Signed: Britton Toro MD at 12:12 EDT , Assessment & Plan Assessment/Plan (1) Chest pain: PLAN: 1. [id number] patient was admitted to PCU, we are currently awaiting a bed at [facility] in [place], at the time of this dictation early evening of 08/31/2021, I do not have a bed available, I was told that there may not be a bed for 2 to 3 days. I approached the patient and called the patient's daughter concerning this, they okayed that I try to get the patient in [facility] but unfortunately [facility] has no beds available and they are on diversion. I explained this to the patient's daughter by phone, I had nursing t ell the patient that he would not be transferred to [facility]. #2 occlusive coronary disease-again patient will remain on aspirin, a beta- praveen, a statin, and an ARB. He will also remain on a heparin drip. Patient is chest pain-free at this time. #3 seizure disorder-patient will remain on Keppra at this time #4 essential hypertension-patient is on an ARB #5 hypothyroidism-patient is on Synthroid Charges/Coding Visit Charges Inpatient E&M: 15586 Init Hosp L3
--- NOTE | 2021-08-31 19:36 | ECHOCS_ITS ---
Reason For Study: [place] Procedure This was a 2D Doppler, Color Flow transthoracic echocardiogram. The study was technically difficult. Contrast injection was performed. Exam performed portable in patient room. Left Ventricle Normal LV size. Left ventricular systolic function is normal. The estimated ejection fraction is 65 %. Diastolic function is indeterminate. No regional wall motion abnormalities noted. Right Ventricle Normal RV size. Normal systolic function. Atria Normal left atrium. Normal right atrium. No doppler evidence for ASD. Mitral Valve There is no mitral annular calcification. Normal mitral valve. Trivial mitral valve insufficiency. Tricuspid Valve Normal tricuspid valve. Trivial tricuspid valve insufficiency. Unable to estimate RV systolic pressure/pulmonary artery pressure due to technically difficult study. Aortic Valve The aortic valve is not well visualized. Pulmonic Valve The pulmonic valve is not well visualized. Great Vessels Normal sized aortic root. Pericardium/Pleural No pericardial effusion. Medication Diluted definity 3ml given slow IV push to enhance endocardial definition. MMode/2D Measurements & Calculations LVIDd: 4.3 cm IVSd: 1.2 cm Ao root diam: 3.3 cm LVIDs: 2.9 cm LVPWd: 0.87 cm RVDd: 2.9 cm FS: 32.5 % LAV(MOD-bp): 36.2 ml LVAd ap4: 24.9 cm2 LVAd ap2: 22.7 cm2 LAV(MOD-bp) Indexed: 18.4 ml/m2 LVLd ap4: 6.9 cm LVLd ap2: 7.0 cm LAV(MOD-sp2): 36.7 ml EDV(MOD-sp4): 72.6 ml EDV(MOD-sp2): 60.8 ml LAV(MOD-sp4): 33.7 ml EDV(sp4-el): 75.8 ml EDV(sp2-el): 62.5 ml LVAs ap4: 15.9 cm2 LVAs ap2: 13.5 cm2 LVLs ap4: 5.8 cm LVLs ap2: 6.3 cm ESV(MOD-sp4): 38.0 ml ESV(MOD-sp2): 23.7 ml ESV(sp4-el): 37.4 ml ESV(sp2-el): 24.6 ml EF(MOD-sp4): 47.7 % EF(MOD-sp2): 61.0 % EF(sp4-el): 50.6 % SV(MOD-sp4): 34.7 ml SV(MOD-sp2): 37.1 ml SV(sp4-el): 38.3 ml LA A4 area: 14.3 cm2 LA dimension(2D): 3.2 cm RA A4 area: 11.8 cm2 Doppler Measurements & Calculations MV E max efra: 54.4 cm/sec Lat Peak E' Efra: 9.8 cm/sec Med Peak E' Efra: 5.9 cm/sec MV A max efra: 87.3 cm/sec E/E' lat: 5.6 E/E' med: 9.2 MV E/A: 0.62 Ao V2 max: 157.1 cm/sec LV V1 max: 110.5 cm/sec Ao max P.9 mmHg LV V1 max P.9 mmHg ECHO/Echo Complete W/ Contrast Interpretation Summary The study was technically difficult. Contrast injection was performed. Left ventricular systolic function is normal. The estimated ejection fraction is 65 %. Trivial mitral valve insufficiency. Trivial tricuspid valve insufficiency. Unable to estimate RV systolic pressure/pulmonary artery pressure due to techni marina difficult study. Diastolic function is indeterminate. Ordering Physician: Ankit Vilchis Referring Physician: Chrissy Elizabeth Performed By: Obdulia Dunn RDCS
[2021-08-31] MEDS: Atorvastatin Calcium 80 MG Tablet PO ×2 (22:09)
[2021-08-31] MEDS: Metoprolol Tartrate 25 MG Tablet PO (22:10)
[2021-08-31] MEDS: levETIRAcetam 500 MG Tablet PO (22:11)
[2021-09-01] VITALS (11 sets, daily range): BP systolic 98–127; BP diastolic 64–79; PULSE 60–83; RESP 16–18; TEMP 36.5–37.1; O2SAT 95–100
[2021-09-01 01:40] LABS: Basophil# 0.08 X10^3/uL; Basophil% 0.8 % (0-1); Eosinophil# 0.52 X10^3/uL; Eosinophils% 5.1 % (0-5); Hematocrit 39.7 % (40-54); Hemoglobin 13.9 g/dL (13.0-16.5); Lymphocyte % 17.6 % (19-41); Mean Corpuscular Hgb 30.7 pg (27.0-32.0); Mean Corpuscular Volume 87.6 fL (80-94); Mean Platelet Vol. 10.3 fl (6.2-12.0); Monocyte# 0.75 X10^3/uL; Monocyte% 7.4 % (0-10); NRBC Flagged by Analyzer 0 % (0-5); Neutrophil # 6.98 X10^3/uL (2.7-7.7); Neutrophil % 68.4 % (47-70); Platelet Count 235 K/mm3 (150-450); RBC Distribution Width CV 13.9 % (11.6-14.6); RBC Distribution Width SD 44.5 fl (35.1-43.9); Red Blood Count 4.53 M/mm3 (4.6-6.2); White Blood Count 10.2 K/mm3 (4.4-11.0)
[2021-09-01 01:49] LABS: Partial Thromboplast Time 59.9 Seconds (24.1-36.2)
[2021-09-01 01:52] LABS: Anion Gap 6 (5-15); BUN 18 mg/dL (7-18); Calcium,Total 8.8 mg/dL (8.5-10.1); Chloride 111 mmol/L (98-107); Creatinine, Serum 0.95 mg/dL (0.70-1.30); EST Glomerular Filtration Rate 82 mL/min (>60); Est Glom Filt Rate - Afr Amer 100 mL/min (>60); Estimated Creatinine Clearance 67.19 ml/min; Glucose 110 mg/dL (74-106); Potassium 4.1 mmol/L (3.5-5.1); Sodium Level 141 mmol/L (136-145)
[2021-09-01] MEDS: Levothyroxine 100 MCG Tablet PO (06:05)
[2021-09-01] MEDS: Nitroglycerin Oint 1 INCH PACKET TD (06:08)
[2021-09-01] MEDS: Nitroglycerin (INPATIENT USE) 0.4 MG TAB.SUBL SL (08:26)
[2021-09-01] MEDS: Nitroglycerin Oint 1 INCH PACKET 1.5 INCH TD ×2 (08:27→13:22)
[2021-09-01] MEDS: Morphine 4 MG/ML Syringe IV (08:29)
[2021-09-01] MEDS: Metoprolol Tartrate 25 MG Tablet PO (08:30)
[2021-09-01] MEDS: levETIRAcetam 500 MG Tablet PO (08:30)
[2021-09-01] MEDS: Aspirin E.C. 81 MG Tablet PO (08:30)
[2021-09-01] MEDS: Losartan Potassium 50 MG Tablet PO (08:31)
[2021-09-01 09:09] LABS: Partial Thromboplast Time 56.3 Seconds (24.1-36.2)
--- NOTE | 2021-09-01 10:02 | EKG12_ITS ---
Test Reason : Blood Pressure : / mmHG Vent. Rate : 082 BPM Atrial Rate : 082 BPM P-R Int : 144 ms QRS Dur : 072 ms QT Int : 356 ms P-R-T Axes : -15 007 023 degrees QTc Int : 415 ms Normal sinus rhythm Normal ECG When compared with ECG of 31-AUG-2021 10:48, MANUAL COMPARISON REQUIRED, DATA IS UNCONFIRMED Confirmed by PATRICIA VANG, ELSA ([id number]), international editorial producer MEETA BROWN ([id number]) on 09/03/2021 8:58:30 AM Referred By: CATHERINE Confirmed By:ELSA GOMEZ MD
[2021-09-01] MEDS: ALPRAZolam 0.25 MG Tablet PO (11:48)
[2021-09-01] MEDS: 0.9% Saline Lock 10 ML Syringe IV (11:48)
[2021-09-01] MEDS: Ondansetron 4 MG/2 ML Vial IV (11:48)
[2021-09-01] MEDS: Acetaminophen 325 MG Tablet 650 MG PO (12:01)
--- NOTE | 2021-09-01 13:46 | NURSING ---
This RN called and gave report to HECTOR Syed at [facility].
--- NOTE | 2021-09-01 14:19 | PN.CARD_ITS ---
Subjective Subjective The patient is awake and alert. He had recurrent chest discomfort earlier this a.m. He was treated with additional medical therapy with morphine sulfate. He states he still feels that his left chest is sore . He denies any acute respiratory related events. There have been no episodes of ongoing palpitations or rapid heart rates. Objective Data Vital Signs: Vital Signs Temp Pulse Resp BP Pulse Ox 98.7 F 62 18 109/66 97 09/01/21 13:17 09/01/21 13:22 09/01/21 13:17 09/01/21 13:22 09/01/21 13:17 Oxygen Flow Rate (L/min) 2 Oxygen Delivery Method Nasal Cannula Weight: 178 lb 5.663 oz Body Mass Index (BMI) 26.3 Intake & Output: Intake and Output for Last 24 Hours 08/30/21 08/31/21 09/01/21 23:59 23:59 23:59 Intake Total 1552.75 / 1552.75 600.20 / 600.20 Output Total 725 / 725 Balance 1552.75 / 1402.75 -124.80 / -124.80 Lab / Micro Data Result Diagrams: 09/01/21 01:30 09/01/21 01:30 Labs: Laboratory Results - last 24 hr 09/01/21 01:30: APTT 59.9 H 09/01/21 01:30: Sodium 141, Potassium 4.1, Chloride 111 H, Carbon Dioxide 24.0, Anion Gap 6, BUN 18, Creatinine 0.95, Estim Creat Clear Calc 67.19, Est GFR (MDRD) Af Amer 100, Est GFR (MDRD) Non-Af 82, BUN/Creatinine Ratio 19.0, Glucose 110 H, Calcium 8.8 09/01/21 01:30: WBC 10.2, RBC 4.53 L, Hgb 13.9, Hct 39.7 L, MCV 87.6, MCH 30.7, MCHC 35.0, RDW Std Deviation 44.5 H, RDW Coeff of Víctor 13.9, Plt Count 235, MPV 10.3, Immature Gran % (Auto) 0.700, Neut % (Auto) 68.4, Lymph % (Auto) 17.6 L, [place] % (Auto) 7.4, Eos % (Auto) 5.1 H, Baso % (Auto) 0.8, Absolute Neuts (auto) 7.0, Absolute Lymphs (auto) 1.80, Nucleated RBC % 0 09/01/21 07:40: APTT 56.3 H Micro: Microbiology 09/01/21 09:37 Nasal Secretion SARS-CoV-2 Antigen (Rapid) - Final Cardiology Labs/Tests 09/01/21 01:30: APTT 59.9 H 09/01/21 01:30: Sodium 141, Potassium 4.1, Chloride 111 H, Carbon Dioxide 24.0, Anion Gap 6, BUN 18, Creatinine 0.95, Est GFR (MDRD) Af Amer 100, Est GFR (MDRD) Non-Af 82, BUN/Creatinine Ratio 19.0, Glucose 110 H, Calcium 8.8 09/01/21 01:30: WBC 10.2, RBC 4.53 L, Hgb 13.9, Hct 39.7 L, MCV 87.6, MCH 30.7, MCHC 35.0, Plt Count 235, MPV 10.3, Immature Gran % (Auto) 0.700, Neut % (Auto) 68.4, Lymph % (Auto) 17.6 L, [place] % (Auto) 7.4, Eos % (Auto) 5.1 H, Baso % (Auto) 0.8, Absolute Neuts (auto) 7.0, Nucleated RBC % 0 09/01/21 07:40: APTT 56.3 H Rhythm: Sinus rhythm CONCLUSIONS Normal Left Ventricular End Diastolic Pressure Normal LV size, wall motion,and systolic function LVEF: by LV gram 65 % [place] Multivessel CAD RECOMMENDATIONS Risk factor modification Medical therapy Surgery consult for coronary revascularization DESCRIPTION OF PROCEDURE The patient arrived to the procedure lab. The risks and benefits of the procedure as well as a full description of our services here and current unavailability of surgical backup were fully explained to the patient and/or their significant other prior to the catheterization. The Timeout was completed, verifying the correct patient and procedure. The patient's procedural site was prepped and draped in the usual fashion. Local anesthetic was given subcutaneously to right radial region with Lidocaine 2%. Using a modified Seldinger technique, arterial access was obtained via the right radial artery, a 6Fr sheath was inserted. Left Coronary Artery selective angiography was performed in multiple views using a 5 Fr. 4.0 [place] catheter. Right Coronary Artery selective angiography was then performed in multiple views using a 5 Fr. JR 4 catheter. Left Ventriculography was performed in [place] projection using a 5 Fr. Pigtail catheter. LV to AO pullback pressures were then recorded.The a rterial sheath was pulled and a TR Band was applied for hemostasis - 10cc air CORONARY ANGIOGRAPHY DOMINANCE: Right Dominant LEFT HEART ASSESSMENT Left Ventricular Ejection Fraction: by LV Gram 65 % Normal LV wall motion Normal Left Ventricular End Diastolic Pressure LVEDP: 4 mmHg LEFT MAIN: Mild calcification, distal: 75 % Stenosis LEFT ANTERIOR DESCENDING ARTERY: Mild luminal irregularities PROX LAD: Mild calcification CIRCUMFLEX ARTERY: PROX CIRC: Mild luminal irregularities OM 1: Proximal - 85 % Stenosis RIGHT CORONARY ARTERY: MID RCA: is occluded DISTAL RCA: /PRDA/RAVS/RPL: fills from left to right collateral flow COLLATERAL FLOW: Collateral flow from Left to Right AORTIC ROOT: Angiographically normal Radiography Diagnostic Testing: Radiology Impression Echocardiogram 08/31/21 19:36 Interpretation Summary The study was technically difficult. Contrast injection was performed. Left ventricular systolic function is normal. The estimated ejection fraction is 65 %. Trivial mitral valve insufficiency. Trivial tricuspid valve insufficiency. Unable to estimate RV systolic pressure/pulmonary artery pressure due to technically difficult study. Diastolic function is indeterminate. ____ Ordering Physician: Ankit Vilchis Referring Physician: Chrissy Elizabeth Performed By: Obdulia Dunn RDCS Physical Exam Const alert, oriented x3 and healthy appearing Orientation / Consciousness: awake HEENT normocephalic, head/scalp atraumatic and hearing grossly normal bilaterally Eyes PERRL and EOMs intact bilaterally Neck full ROM, supple and no JVD Resp clear to auscultation bilaterally Cardio regular rate, regular rhythm, S1 normal heart sound and S2 normal heart sound GI normal to inspection, nondistended, normoactive bowel sounds Extremity no pedal edema Skin no rashes or lesions noted Neuro oriented x3, moves all extremities, no focal motor deficits and no sensory deficits noted Psych mental status grossly normal Assessment & Plan Assessment/Plan (1) Non-ST elevated myocardial infarction (non-STEMI): PLAN: The patient appears to have experienced a non-ST segment elevation [place]. He has undergone evaluation with a transthoracic echocardiogram. The results are as noted. He has undergone evaluation with diagnostic cardiac catheterization. He has angiographically significant appearing CAD involving the left main coronary artery, LAD, LCx, and RCA systems. He has been recommended for not only medical therapy but CT surgery evaluation for CABG. (2) HTN (hypertension): PLAN: The patient has a history of hypertension. He states he has been on antihypertensive therapy with losartan. (3) Cerebral arteriovenous malformation: PLAN: The patient appears to have a history of cerebral AV malformation. He has undergone a remote evaluation and care for this at the [facility]-2010. (4) History of intracranial hemorrhage: PLAN: The pain is a history of intracranial hemorrhage related to the aforementioned diagnosis. 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 He has had no recurrent TIRE DESIGN ENGINEER events since that time. Addt'l Comments The patient's case has been discussed and reviewed with the patient, his spouse, and his daughter. Initially the request was for transfer to [facility] where he had his previous CNF surgery. However, it appears that there are no beds available at this time. Dr. Vilchis did contact other tertiary care center such as [facility] and [facility]. Again they have no beds available at this time. The patient and his family members were agreeable to transfer to alternative tertiary care centers. His case was discussed with Dr. Arsalan Almonte of CT surgery at [facility] in [place], [place]. He agreed to accept the patient in transfer for further evaluation and care. This note was generated using a voice recognition system and there may be incorrect words, spelling or punctuation that were not noted when reviewing the office note prior to saving.
[2021-09-01 14:35] LABS: Partial Thromboplast Time 60.2 Seconds (24.1-36.2)
--- NOTE | 2021-09-01 15:06 | DS.PCM_ITS ---
Providers Date of Admission: 08/31/21 Date of Discharge: 09/01/21 Primary Care Physician: Dr. Chrissy Elizabeth MD Consultations 08/31/21 15:58 Consult: Cardiology Routine Consulting Provider: Akhil Mooney Reason for Consult: NSTEMI EMERGENT Consult: No Notified: Yes Date Notified: 08/31/21 Time Notified: 12:30 Method of Notification: Verbal Method of Consult:: In-Person Reason For Visit: ACUTE CORONARY SYNDROME NON ST ELEVATION AR Diagnosis Discharge Diagnosis (1) Non-ST elevated myocardial infarction (non-STEMI): Status: Acute Code(s): I21.4 - Non-ST elevation (NSTEMI) myocardial infarction (2) HTN (hypertension): Status: Chronic Code(s): I10 - Essential (primary) hypertension (3) Cerebral arteriovenous malformation: Status: Chronic Code(s): Q28.2 - Arteriovenous malformation of cerebral vessels (4) History of intracranial hemorrhage: Status: Chronic Code(s): Z86.79 - Personal history of other diseases of the circulatory system Plan: 1. Non-STEMI #2 occlusive coronary artery vruorab-cklzhb-mratuh disease #3 seizure disorder #4 essential hypertension #5 hypothyroidism Medications at Discharge Home Medications levetiracetam 500 mg PO BID 02/15/16 losartan 50 mg PO DAILY 02/15/16 levothyroxine [Euthyrox] 100 mcg PO DAILY 06/05/21 Hospital Course Operations None Procedures 2-D Echocardiogram and Cardiac catheterization Summary of Care Provided Minutes Spent on Discharge: 32 Hospital Course: This 76-year-old white male was seen in the emergency room at [facility] with complaints of precordial chest pain, patient's troponins were elevated, EKG did not show an acute STEMI. Patient was taken from the ER to the [facility] expedient[facility] and underwent a cardiac catheterization, it was noted that the patient had triple vessel disease and it was advised that the patient be transferred to tertiary facility for further care. He remained on PCU on a heparin drip while awaiting transfer to a tertiary center, [facility] to transfer him to due to poor bed availability. Finally, [facility] agreed to take the patient for further care and evaluation for bypass surgery. On 09/01/2021, patient was seen and examined: On examination he appeared in good health and spirits. Vital signs as documented. Skin warm and dry and without overt rashes. Neck without JVD, neck was supple, trachea midline, thyroid was normal. Lungs clear bilaterally, normal air movement was noted. Heart exam notable for regular rhythm, normal sounds and absence of murmurs, rubs or gallops. Abdomen unremarkable and without evidence of organomegaly, masses, or abdominal aortic enlargement. Bowel sounds are present, abdomen is not distended. Extremities nonedematous, no cyanosis was noted, no clubbing was noted. Neuro: Cranial nerves II through XII are grossly intact, no focal motor deficits were noted, sensation to light touch and pinprick intact, motor exam 5/5 throughout. Psych: Patient is alert and oriented x3, he does not appear anxious or depressed, he does not appear agitated. Patient appears stable for discharge on 09/01/2021. Weight / BMI Weight Weight: 80.9 kg Body Mass Index (BMI) 26.3 ABG / Lab / Microbiology Data Result Diagrams: 09/01/21 01:30 09/01/21 01:30 Laboratory: Laboratory Results - last 24 hr 09/01/21 01:30: APTT 59.9 H 09/01/21 01:30: Sodium 141, Potassium 4.1, Chloride 111 H, Carbon Dioxide 24.0, Anion Gap 6, BUN 18, Creatinine 0.95, Estim Creat Clear Calc 67.19, Est GFR (MDRD) Af Amer 100, Est GFR (MDRD) Non-Af 82, BUN/Creatinine Ratio 19.0, Glucose 110 H, Calcium 8.8 09/01/21 01:30: WBC 10.2, RBC 4.53 L, Hgb 13.9, Hct 39.7 L, MCV 87.6, MCH 30.7, MCHC 35.0, RDW Std Deviation 44.5 H, RDW Coeff of Víctor 13.9, Plt Count 235, MPV 10.3, Immature Gran % (Auto) 0.700, Neut % (Auto) 68.4, Lymph % (Auto) 17.6 L, [place] % (Auto) 7.4, Eos % (Auto) 5.1 H, Baso % (Auto) 0.8, Absolute Neuts (auto) 7.0, Absolute Lymphs (auto) 1.80, Nucleated RBC % 0 09/01/21 07:40: APTT 56.3 H 09/01/21 14:13: APTT 60.2 H Microbiology: Microbiology 09/01/21 09:37 Nasal Secretion SARS-CoV-2 Antigen (Rapid) - Final Radiography Diagnostic Testing: Radiology Impression Echocardiogram 08/31/21 19:36 Interpretation Summary The study was technically difficult. Contrast injection was performed. Left ventricular systolic function is normal. The estimated ejection fraction is 65 %. Trivial mitral valve insufficiency. Trivial tricuspid valve insufficiency. Unable to estimate RV systolic pressure/pulmonary artery pressure due to technically difficult study. Diastolic function is indeterminate. Ordering Physician: Ankit Vilchis Referring Physician: Chrissy Elizabeth Performed By: Obdulia Dunn RDCS Meaningful Use Info Meaningful Use Diagnoses (Choose all that apply): AMI AMI/Post PCI/Angioplasty Aspirin given w/in 24hrs of arrival?: Yes ASA at discharge?: Yes Antiplatelet Therapy at Discharge:: Yes Statins at discharge?: Yes Jose/ARB at discharge?: Yes Beta Tushar at discharge?: Yes Done w/ Acute AR measure.: Yes Documented LVEF (%): 65 Discharge Plan Admission Admit Date/Time: 08/31/21 15:15 Attending Provider: Ankit Vilchis Primary Care Provider: Chrissy Elizabeth Consulting Providers: Akhil Mooney Discharge Orders/Prescriptions Prescriptions: No Action losartan 50 MG tablet 50 mg PO DAILY RF: 0 levetiracetam 500 MG tablet 500 mg PO BID RF: 0 levothyroxine [Euthyrox] 100 mcg tablet 100 mcg PO DAILY RF: 0 Referrals / Follow Up: Chrissy Elizabeth MD [Primary Care Provider] - Disposition Disposition (needs filled in before D/C Order can be placed): Acute Care Hospital Charges/Coding Visit Charges Inpatient E&M: 00580 Disch Hosp
== END 2021-09-01 15:28 | disposition short-term general hospital (02) | DRG 282 ==
LOC: ED 11:53 → PCU 15:34
PROVIDERS: Internal Medicine Cardiovascular Disease; Admitting Provider Internal Medicine; Emergency Provider Emergency Medicine; PCP Family Medicine; Visit Provider Internal Medicine
DX: I21.4 Non-ST elevation (NSTEMI) myocardial infarction (principal); E03.9 Hypothyroidism, unspecified; G40.909 Epilepsy, unspecified, not intractable, without status epilepticus; I10 Essential (primary) hypertension; I25.10 Atherosclerotic heart disease of native coronary artery without angina pectoris; Z87.891 Personal history of nicotine dependence; Z79.899 Other long term (current) drug therapy; Z79.890 Hormone replacement therapy
CPT/HCPCS: 36415; 71045; 80048; 84484; 85025; 85379; 85610; 85730; 87426; 93005; 93306; 93458; 99152; 99153; 99285; J7030; Q9957; A4216; C1769; C1894; C8929; J2405; Q9967

== ENCOUNTER 2021-09-13 10:46 | Outpatient (CLI) | payer MEDICARE, SELFPAY ==
[2021-09-13 11:16] LABS: Anion Gap 7 (5-15); BUN 32 mg/dL (7-18); BUN/Creat Ratio 27.6 RATIO (10-20); Calcium,Total 9.2 mg/dL (8.5-10.1); Chloride 100 mmol/L (98-107); Creatinine, Serum 1.16 mg/dL (0.70-1.30); EST Glomerular Filtration Rate 65 mL/min (>60); Est Glom Filt Rate - Afr Amer 79 mL/min (>60); Glucose 150 mg/dL (74-106); Potassium 3.9 mmol/L (3.5-5.1); Sodium Level 137 mmol/L (136-145)
== END 2021-09-13 23:59 | disposition home or self-care (01) ==
PROVIDERS: PCP Family Medicine; Visit Provider Registered Nurse
DX: E87.8 Other disorders of electrolyte and fluid balance, not elsewhere classified (principal)
CPT/HCPCS: 80048

== ENCOUNTER → 2021-11-02 | Outpatient (CLI) | payer MEDICARE, SELFPAY ==
--- NOTE | 2021-11-02 09:15 | PCM.CR.HP2 ---
CR - History & Physical - General Arrival date:: 11/02/21 Arrival time:: 08:00 Date of Referral:: 10/08/21 Date of CR Evaluation:: 11/02/21 Referring Physician: Dr. Akhil Mooney Primary Diagnosis: S/P CABG - History of Present Cardiac Event Onset Date: Enter Onset Date of cardiac illnesses in Comment field below Coronary Artery Bypass Graft:: Yes - 09/07/2021 Type of Symptoms:: Shoveling snow, couldn't catch his breath. Went to [facility] and sent to the ER, tio blood and found elevated troponins and enzymes. Taken to the [facility] and then sent to [facility]. Were there any complications?: None - Sleep Disorder Evaluation Hx of Sleep Apnea: No Do you snore loudly (louder than talking or can be heard through closed doors)?: No Do you often feel tired/ fatigued/ sleepy during daytime?: No Has anyone observed you stop breathing during sleep?: No History of Hypertension (for STOP score): Yes STOP Results: Negative - Medications Home Medications: Ambulatory Orders Medication Instructions Recorded levetiracetam 500 mg PO BID 02/15/16 levothyroxine [Euthyrox] 100 mcg PO DAILY 06/05/21 acetaminophen 325 mg tablet 650 mg PO Q4H PRN tab 09/13/21 aspirin 81 mg tablet,delayed 81 mg PO DAILY 09/13/21 release atorvastatin 40 mg tablet 40 mg PO QHS 09/13/21 clopidogrel 75 mg tablet 75 mg PO DAILY 09/13/21 metoprolol tartrate 50 mg tablet 50 mg PO BID 09/13/21 polyethylene glycol 3350 17 4 g PO QHS g 10/08/21 gram/dose oral powder - Allergies Allergies/Adverse Reactions: Allergies No Known Allergies Allergy (Verified 10/08/21 14:09) Advanced Directives - Advanced Directives Power of Junior Paralegal: Yes Living Will: Yes Advance Directives Information Provided: No Advance Directives on File: Yes - Were brought to the hospital last time, not sure if they were scanned in. DNR Order?:: No - MOLST See MOLST form: No Past Medical History - Covid-19 Screening Fever: No Unexplained muscle aches: No Current respiratory symptoms: No Upper respiratory infections symptoms: No Gastro-intestinal symptoms: No Zzk-Vhkl-Taiedb symptoms: No Has tested positive for COVID-19 in last 30 days: No Date of testin08/12/20 - Had two vaccines and 1 of the Boosters Had contact w/person w/symptoms or Covid-19 (+) last 14 days: No Has High Risk Exposures ID'd by Health dept/Inf Control team: No 65 years or older:: Yes Lives in Assisted Living facility:: No Has a chronic lung disease or moderate to severe asthma:: No Has a serious heart condition:: No Immunocompromised:: No Severely obese (Body Mass Index of 40 or higher):: No Diabetic:: No Has chronic kidney disease undergoing dialysis:: No Has liver disease:: No - Past Medical Illness Medical History: Past Medical History (Last Reviewed 10/08/21 @ 14:14 by Geni George) Atherosclerotic heart disease of [place] coronary artery without angina pectoris I25.10 Bilateral carotid artery stenosis I65.23 History of left heart catheterization (LHC) Onset Date: ~08/31/21 Z98.890 LEFT MAIN: Mild calcification, distal: 75 % Stenosis; LEFT ANTERIOR DESCENDING ARTERY: Mild luminal irregularities, PROX LAD: Mild calcification; CIRCUMFLEX ARTERY: PROX CIRC: Mild luminal irregularities OM 1: Proximal - 85 % Stenosis; RIGHT CORONARY ARTERY: MID RCA: is occluded DISTAL RCA: /PRDA/RAVS/RPL: fills from left to right collateral flow; COLLATERAL FLOW: Collateral flow from Left to Right; AORTIC ROOT: Angiographically normal RECOMMENDATIONS: HTN (hypertension) I10 Hypothyroidism E03.9 Pleural effusion J90 Seizure disorder G40.909 - Past Surgical History Surgical History: Past Surgical History (Last Reviewed 10/08/21 @ 14:14 by Geni George) History of back surgery Z98.890 History of carpal tunnel surgery Z98.890 History of coronary artery bypass surgery Onset Date: ~09/02/21 Z95.1 CABG x3- CUTLER-LAD, SVG to OM,SVG to RCA @ [facility] 09/02/21 Dr. Almonte History of elbow surgery Z98.890 Hx of brain surgery Z98.890 - Family History Summary Family History: Family History (Last Reviewed 10/08/21 @ 14:14 by Geni George) Mother CAD (coronary artery disease) Father Carotid artery disease Social History - Smoking History Smoking Status: Never smoker Hx Tobacco Use: Yes - quit 30+ years ago. Hx Smoking Exposure: No - Alcohol Use Alcohol Usage: No - Substance Abuse Hx Substance Use: No - Occupation Occupation (List type of work in comments):: Retired - Hobbies, Recreation, Social Activities Hobbies: Other Recreational Activities: I am able to engage in all my recreational activities Social Environment - Status Marital Status: - Current Living Arrangements Living Environment:: Spouse - Children How many children do you have?: 2 Do any of your children live nearby?: Yes - Safety Do you feel safe in your surroundings?: Yes - Assistance Do you need any assistance at home?: no Review of Systems - Review of Systems Hints: Right click = Denies (Slash). Left click = Reports ([place]) Review of Present Symptoms: Reports: Operative Discomfort - still has some soreness across the chest from the surgery., Wound Healing, Appetite - Normal, Appetite - Special Diet - try to watch what I eat. Supposed to be on a low fat, low sodium diet. Try the best I can., Sleep - Normal. Denies: Shortness of Breath at Rest, Shortness of Breath with Exertion, Dizziness/Lightheadedness, Fatigue, Heart Arrhythmia/Irregularities, Sexual Changes - Pain Is Patient Pain Free?: Yes Pain Location: none Risk Factor Assessment - Vital Signs Temperature: 98.1 F Respiratory Rate: 18 Pulse Ox: 95 Blood Pressure: 112/60 - Pulse Pulse Rate: 76 Pulse Rhythm: Regular - Hypertension Blood Pressure Sitting - Left Arm: 112/60 - Obesity Height: 5 ft 9 in Weight:: 173 lb Weight in Pounds: 173.0 lbs Weight Source: Standing Scale Body Mass Index (BMI): 25.5 Nutritional Referral for Obesity: No - Physical Inactivity Physical Inactivity: Recreational activity - wash cars, yard work, walking a lot during the day, very active outside.. - Risk Stratification Risk Guidelines: Lowest Risk: Risk Factor for Smoking, Risk Factor for Dyslipidemia, Risk Factor for Diabetes, Risk Factor for Obesity, Risk Factor for Sedentary Lifestyle, Risk Factor for Depression, Moderate Risk: Risk Factor for Hypertension - Family History Family History: Family History (Last Reviewed 10/08/21 @ 14:14 by Geni George) Mother CAD (coronary artery disease) Father Carotid artery disease Motivation - Motivation to Participate On a scale of 1 to 10, how prepared are you to commit to attending program?: 7 - really active at home. What do you see as barriers to successfully being able to complete the program?: Don't like exercise, but if it helps that is a good thing What do you see as the benefits of succesfully completing the program? In other words, what do you hope to get out of participating in the program?: Not having this happen again. Are there issues you are dealing with that will interfere with completing the program?: none Do you have a spouse or signficant other, family or friends who will help support you to complete the program?: Yes
[2021-11-02 09:32] VITALS: BP 112/60; PULSE 76; RESP 18; TEMP 36.7; O2SAT 95; BMI 25.5
--- NOTE | 2021-11-02 09:33 | PCM.CR.ITP ---
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 Maintain the individual as the primary focus of care. 2. To improve the patient's quality of life. 3. Identification of cardiac risk factors and provide cardiac risk factor management. 4. Enhance the psychosocial status of the patient. 5. Reconditioning enough to allow the patient to resume customary activities. 6. Control symptoms of cardiac disease Personal Goals: Initial Assessment: Improve management of stress and emotions, Improve energy level, Improve knowledge of cardiac disease, Improve muscle strength and endurance Scale for measuring improvement of personal goals: Enter appropriate number in Comments. 2 = Unchanged. 3 = Slightly Better. 4 = Moderate Improvement. 5 = Met my Goal - Diagnosis & Disease Process Outcomes/Goals: Pt IDs own risk factors & lifestyle modifications by Session 10, Verbalizes symptoms of angina & response by session 3., Pt independently manages Plan/Interventions: Assist Pt to ID & engage in lifestyle modification to reduce CVD risk, Instruct on individual risk factors, Review symptoms of angina & emergency actions, Review secondary diagnosis & identify educational needs. - Safety Referral to Physical Therapy: No Referral to [facility] Case Management: No Fall Risk Assessed:: Yes Assistive Devices:: None Exercise - Initial Assessment - Visit Date of Eval: 11/02/21 Session #:: 0 - Pre cardiac Rehab Evaluation Mets: Pre-: >7 METS for 30 minutes by discharge - Physician Prescribed Exercise Modalities: Treadmill, Airdyne, NuStep Frequency: 2x/week for 18 weeks [36 sessions], 3x/week for 12 weeks [36 sessions] Intensity: 60-80% of age predicted maximum heart rate reserve Current METSs:: 3.0. Target Heart Rate:: 94-123 Resting Blood Pressure: 112/60 EKG Type: Sinus Rhythm with non specific T wave abnormality Current Physical Activity or Exercising minutes: 60 - Outcomes & Goals Goals:: Verbalizes understanding of THR, RPE & goal METS by session 6, Documents in home exercise log/reports 30 min aerobic 5 day/wk by DC, Demonstrates accurate pulse taking by DC - Intervention & Plan Exercise Program Goals: Instruct on personal THR & RPE, Instruct on MET level & personal MET goal, Show patient to take own pulse /validate performance until accurate, Instruct on home exercise - Physical Activity Home Exercise Physical Activity - Home Exercise: Safe Exercise, Warm-up, Self-monitoring, Cool-Down, Home Exercise > 30 min Daily, Sitting Time <3 hours/daily - Outcomes & Goals Outcomes/Goals: Demonstrates correct Warm-up/exercise Cool-Down (S3) if = 2.5 METs, Verbalizes symptoms of exercise intolerance by Session 3 (S3), Demonstrate safe equipment use (S3) & follows exercise prescrition (6) - Intervention & Plan Plan/Intervention: Instruct warm-up & cool-down if exercising at > 2 METs, Instruct on symptoms of exercise intolerance & actions to take, Instruct & monitor on saf, Assess intial functional capacity & safety risk Nutrition - Initial Assessment - Program Goals Nutrition Program Goals: LDL <100 optimal. 100 - 129 Near optimal. 130 - 159 Borderline High. 160 - 189 High. Total Cholesterol <200 desirable. 200 - 239 Borderline High. >/= 240 High. HDL < 40 Low >/=60 High. Triglycerides <150 desirable. <199 optimal. VlDL 5 - 40. HgbA1C <7%. BMI <25 Patient has diagnosis of Hyperlipidemia (ICD E78)?: Yes - Visit Date of Assessment:: 11/02/21 Session #:: 0 - Pre-cardiac rehab evaluation - Cholesterol/Lipids Triglycerides (mg/dL): 0 - no labs available Determine presence & major risk factors that modify LDL goal: Hypertension or hypertensive medication, Age men > 45 years; women >/= 55 years Outcomes/Goals: Pt IDs own risk factors & lifestyle modifications by Session 10, Verbalizes symptoms of angina & response by session 3., Pt independently manages Intervention/Plan: Instruct on personal lipid levels & lipid goals/NCEP guidelines, Instruct on cholesterol Referral to dietitian:: Yes - Medical Nutrition Therapy - Diabetes (Other Core Measures) Diabetes Type: Not Applicable - Weight Mgt (Other Care) Height: 5 ft 9 in Weight:: 173 lb BMI: 25.5 Diagnosis Overweight/Obesity BMI> 30% ICD-10 E66: No Diagnosis High BMI/Morbid Obesity BMI> 35% ICD-10 Z68: No Outcomes/Goals: Pt sets, maintains & shows weight loss goal & trend during rehab Intervention/Plan: Instruct on ideal BMI & set weight loss goal w/patient - Healthy Eating Habits Will attend diet classes:: Yes Outcomes/Goals:: Consume diet rich in vegs,fruits,whole grain/high fiber,fish,lean meat, Limit sat/trans fats,cholesterol & added salts & sugars Intervention/Plan:: Assess current eating habits - Education Gave educational materials for:: Healthy eating Nutrition - 30-Day Assessment Nutrition - 60-Day Assessment Nutrition - 90-Day Assessment Nutrition - Final Assessment Medical - Initial Assessment - Visit Date of Eval: 11/02/21 Session #:: 0 - Pre-cardiac rehab evaluation - Medication Compliance Preventative Medication(s):: Aspirin, Clopidogrel/P2Y12 inhibit, Statin/lipid, Beta praveen H/O mental health issues: depression, anxiety, or addiction?: No Doesn?t believe in the benefits of treatment?: No Believes medications are unnecessary or harmful?: No Has a concern about medication side effects?: No Expresses concern over the cost of medications?: No Outcomes/Goals: Verbalizes medications,desired effect & common side effects @ DC, Pt self-reports following medication regimen, Keeps card in wallet w/medications listed by DC Interventions/plans: Instruct on medication effects & side effects, Review medication list w/patient every two weeks, Instruct importance of taking meds as ordered & assist problem solving - Tobacco Use Tobacco Use: Non-smoker - Hypertension Hypertension Diagnosis:: Hypertension ICD-10 I10 Resting Blood Pressure:: 112/60 [place] [employer] Hypertension Guidelines: [place] [employer] Hypertension Guidelines. Normal BP Less than 120/80. Elevated BP 120/80. Hypertension Stage 1: BP 130-139/80-89. Hypertesnion Stage 2: BP 140 or higher/90 or higher. Hypertension Crisis: BP higher than 180/120 Outcomes/Goals: Able to verbalize/achieve optimal blood pressure <130/80, Incorporates diet changes & exercise for blood pressure control by DC Interventions/plan: Instruct on optimal blood pressure, hypertension & medications, Instruct on effects of sodium, alcohol, stress, exercise &hypertension - Tobacco Cessation Referral Smoking Cessation Referral:: No Individual Education/Counseling:: No Education Schedule Given:: Yes Medical- 30-Day Assessment Medical- 60-Day Assessment Medical- 90-Day Assessment Medical - Final Assessment Psychosocial - Initial Assess - VIsit Date of Eval: 11/02/21 Session #:: 0 - pre-cardiac rehab evaluation Not Applicable: Yes History of previous Mental disease:: No - Psychosocial Test Tool Used:: [employer] Power QOL Cardiac, PHQ-9 Questionnaire phq-9 Severity: Severity. 1-4 Minimal Depression. 5-9 Mild Depression. 10-14 Moderate Depression. 15-19 Moderately Sever Depression. 20-27 Severe Depression. Rule: - Referral to Behavioral Health PS - Interventions: Yes Attend Stress Management Classes, No Referral to Behavioral Health if PHQ-9 score >9:, No Referral to [facility], No Referral to Physician if PHQ-9 if score is 5-9: - Outcomes/Goals: See list Psychosocial Outcomes/Goals:: ID's personal stressors & 2 strategies to manage stress by discharge - Intervention/Plan: See List Interventions/Plan:: Assess stressors,coping strategies & signs of derpression on admission, Instruct/assist pt to develop coping & personal stress Mgt strategies, Instruct patient to recognize signs & symptoms of depression, Instruct patient to recog Psychosocial - 30-Day Assess Psychosocial - 60-Day Assess Psychosocial - 90-Day Assess Psychosocial - Final Assessmen Patient Health Questionnaire Initial Assessment 1. Little interest or pleasure in doing things: Not at all 2. Feeling down, depressed, or hopeless: Not at all 3. Trouble falling or staying asleep, or sleeping too much: Several days 4. Feeling tired or having little energy: Several days 5. Poor appetite or overeating: Not at all 6. Feeling bad about yourself -- or that you are a failure or have let yourself or your family down: Not at all 7. Trouble concentrating on things, such as reading the newspaper or watching television: Not at all 8. Moving or speaking so slowly that other people could have noticed. Or the opposite - being so fidgety or restless that you have been moving around a lot more than usual: Not at all 9. Thoughts that you would be better off , or of hurting yourself in some way: Not at all How difficult have these problems made it for you to do your work, take care of things at home, or get along with other people?: Not difficult at all Total Score: 2 ANTON-Q SV Test - Statements CAD is a disease of the arteries in the heart: False Examples of risk factors for heart disease: True Angina is chest pain or discomfort: True The benefits of resistance training include: True Eating more meat and dairy products: False Anti-platelet medications such as aspirin are important: True The only effective way to manage stress: False An exercise warm-up slowly increases heart rate: True Prepared, processed foods usually have high sodium: True Depression is common after a heart attack: True The statin medications lower cholesterol: True To control blood pressure, lower the amount of sodium: True If someone gets chest discomfort during walking: False Transfats are partially hydrogenated vegetable oils: I Don't Know Sleep apnea that is not treated increases the risk: I Don't Know To control cholesterol, one should become a vegetarian: False Someone knows if he/she is exercising at the right level: I Don't Know Diabetes cannot be prevented with exercise & health eating: True Stress is a large risk for heart attack: True A diet that can help lower blood pressure is rich in: True - Total Score Total Correct Responses: 16 Self-Efficacy Initial Assessment We would like to know how confident you are in doing certain activities. Please select your confidence level for:: Select your confidence level for the following using the scale 1-10 where 1 is not at all confident and 10 is totally confident. Your score is the average of all 6 responses. Fatigue: How confident are you that you can keep the fatigue caused by your disease from interfering with the things you want to do? Select Number: 10 Physical Discomfort or Pain: How confident are you that you can keep the physical discomfort or pain of your disease from interfering with the things you want to do? Select Number: 6 Emotional Distress: How confident are you that you can keep the emotional distress caused by your disease from interfering with the things you want to do? Select Number: 6 Other Symptoms or Health Problems: How confident are you that you can keep other symptoms or health problems from interfering with the things you want to do? Select Number: 5 Different Tasks and Activities: How confident are you that you can do the different tasks and activities needed to manage your health condition so as to reduce your need to see a doctor? Select Number: 5 Medication: How confident are you that you can do things other than just taking medication to reduce how much your illness affects your everyday life? Select Number: 5 Total Score:: 6 Nutrition Survey - Nutrition Survey Initial Have you lost >10 lbs over the past 2 months without trying?: No Are you following a special diet at home for diabetes, low fat, or low salt?: Yes Are you interested in meeting with a dietitian for help understanding your diet?: No Do you eat less than 3 meals a day?: No Do you eat fatty meats (damon, sausage, ribs, etc), fried foods, desserts, large amounts of salad dressings, margarine, butter, or cheese most days?: No Do you have food allergies? [Enter types in comment field]: No Do you eat in restaurants more than 3 times a week?: No Do you season food with salt, seasoning salt, or garlic salt?: No Do you used canned, boxed, frozen meals, or soups, seasoning packets?: No Total Score:: 1
[2021-11-02 09:57] VITALS: BP 112/60; BMI 25.5
== END | disposition home or self-care (01) ==
LOC: CR 08:04
PROVIDERS: PCP Family Medicine; Visit Provider Internal Medicine Cardiovascular Disease
DX: I21.4 Non-ST elevation (NSTEMI) myocardial infarction (principal); I10 Essential (primary) hypertension; I25.10 Atherosclerotic heart disease of native coronary artery without angina pectoris; Z95.1 Presence of aortocoronary bypass graft

== ENCOUNTER 2021-11-05 10:30 | Outpatient (RCR) | payer MEDICARE, SELFPAY ==
[2021-11-02 09:57] VITALS: BMI 25.5
== END 2021-11-09 23:59 ==
LOC: CR 10:30
PROVIDERS: PCP Family Medicine; Visit Provider Internal Medicine Cardiovascular Disease
DX: I25.10 Atherosclerotic heart disease of native coronary artery without angina pectoris (principal); I10 Essential (primary) hypertension; Z95.1 Presence of aortocoronary bypass graft
CPT/HCPCS: 93798

== ENCOUNTER 2021-12-08 10:30 | Outpatient (RCR) | payer MEDICARE, SELFPAY ==
[2021-11-02 09:57] VITALS: BMI 25.5
--- NOTE | 2021-12-01 08:28 | CR.ITP_ITS ---
Diagnosis Exercise - 30-day Assessment - Visit Date of Eval: 12/01/21 Session #:: 11 - Physician Prescribed Exercise Modalities: Treadmill, Airdyne, NuStep, SciFit, Lateral [place] Frequency: 3x/week for 12 weeks [36 sessions] Intensity: 60-80% of age predicted maximum heart rate reserve Current METSs:: 4.5 Target Heart Rate:: 94-123 Current RPE:: 10-12 Maximum Excercise HR:: 92 Resting Blood Pressure: 100/52 Maximum Exercise Blood Pressure: 110/60 EKG Type: NSR with an isolated PAC - Outcomes & Goals Goals:: Verbalizes understanding of THR, RPE & goal METS by session 6, Documents in home exercise log/reports 30 min aerobic 5 day/wk by DC, Demonstrates accurate pulse taking by DC, Other additional outcome/goals: see below - Intervention & Plan Exercise Program Goals: Instruct on personal THR & RPE, Instruct on MET level & personal MET goal, Show patient to take own pulse /validate performance until accurate, Instruct on home exercise, Other additional plan/int - 30-day Reassessments 30 day Reassessments:: Progressing - Physical Activity Home Exercise Physical Activity - Home Exercise: Safe Exercise, Warm-up, Self-monitoring, Cool-Down, Home Exercise > 30 min Daily, Sitting Time <3 hours/daily - Outcomes & Goals Outcomes/Goals: Demonstrates correct Warm-up/exercise Cool-Down (S3) if = 2.5 METs, Verbalizes symptoms of exercise intolerance by Session 3 (S3), Demonstrate safe equipment use (S3) & follows exercise prescrition (6), Other: See below - Intervention & Plan Plan/Intervention: Instruct warm-up & cool-down if exercising at > 2 METs, Instruct on symptoms of exercise intolerance & actions to take, Instruct & monitor on saf, Assess intial functional capacity & safety risk, Other See below - 30-day Reassessments 30 day Reassessments:: Progressing Nutrition - Initial Assessment Nutrition - 30-Day Assessment - Program Goals Nutrition Program Goals: LDL <100 optimal. 100 - 129 Near optimal. 130 - 159 Borderline High. 160 - 189 High. Total Cholesterol <200 desirable. 200 - 239 Borderline High. >/= 240 High. HDL < 40 Low >/=60 High. Triglycerides <150 desirable. <199 optimal. VlDL 5 - 40. HgbA1C <7%. BMI <25 Patient has diagnosis of Hyperlipidemia (ICD E78)?: Yes - Visit Date of Assessment:: 12/01/21 Session #:: 11 - Cholesterol/Lipids Determine presence & major risk factors that modify LDL goal: Hypertension or hypertensive medication, Low HDL cholesterol <40 mg/dL*, Family history of premature CHD in Male < 55 years: female <65 yearsFa, Age men > 45 years; women >/= 55 years Outcomes/Goals: Pt IDs own risk factors & lifestyle modifications by Session 10, Verbalizes symptoms of angina & response by session 3., Pt independently manages, Other Additional Outcomes/Goals: Intervention/Plan: Advocate for lipid panel cholesterol medication if applicable, Instruct on personal lipid levels & lipid goals/NCEP guidelines, Instruct on cholesterol, Other additional plan/int Referral to dietitian:: Yes - medical nutrition therapy 30-day Reassessments:: Progressing - Diabetes (Other Core Measures) Diabetes Type: Not Applicable - Weight Mgt (Other Care) Height: 5 ft 9 in Weight:: 78.471 kg BMI: 25.5 Outcomes/Goals: Pt sets, maintains & shows weight loss goal & trend during rehab, Other additional outcomes/goals Intervention/Plan: Instruct on ideal BMI & set weight loss goal w/patient, Assist pt to ID & incorporate diet changes for weight loss by S9, Refer to Structured Weight Loss program as appropriate, Encourage goal of using 250- 300dcal per session for weight loss, Other additional plan/interventions 30 day Reassessments:: Progressing - Healthy Eating Habits Will attend diet classes:: Yes Outcomes/Goals:: Consume diet rich in vegs,fruits,whole grain/high fiber,fish,lean meat, Limit sat/trans fats,cholesterol & added salts & sugars, Other additional outcome/goals: Intervention/Plan:: Assess current eating habits, Other Additional plan/interventions 30-day Reassessments:: Progressing - Education Gave educational materials for:: Signs & symptoms of hypoglycemia, Signs & symptoms of hyperglycemia, Relate diabetes to coronary artery disease, Healthy eating Nutrition - 60-Day Assessment Nutrition - 90-Day Assessment Nutrition - Final Assessment Medical - Initial Assessment Medical- 30-Day Assessment - Visit Date of Eval: 12/01/21 Session #:: 11 - Medication Compliance Preventative Medication(s):: Aspirin, Clopidogrel/P2Y12 inhibit, Statin/lipid, Beta praveen H/O mental health issues: depression, anxiety, or addiction?: No Doesn?t believe in the benefits of treatment?: No Believes medications are unnecessary or harmful?: No Has a concern about medication side effects?: No Expresses concern over the cost of medications?: No Outcomes/Goals: Verbalizes medications,desired effect & common side effects @ DC, Pt self-reports following medication regimen, Keeps card in wallet w/medications listed by DC, Other additional outcome/goals: Interventions/plans: Instruct on medication effects & side effects, Review medication list w/patient every two weeks, Instruct importance of taking meds as ordered & assist problem solving, Other additional 30-day Reassessments:: Progressing - Tobacco Use Tobacco Use: Non-smoker 30-day Reassessments:: Progressing - Hypertension Hypertension Diagnosis:: Hypertension ICD-10 I10 Resting Blood Pressure:: 100/52 [place] [employer] Hypertension Guidelines: [place] [employer] Hypertension Guidelines. Normal BP Less than 120/80. Elevated BP 120/80. Hypertension Stage 1: BP 130-139/80-89. Hypertesnion Stage 2: BP 140 or higher/90 or higher. Hypertension Crisis: BP higher than 180/120 Peak Exercise Blood Pressure:: 110/60 Outcomes/Goals: Able to verbalize/achieve optimal blood pressure <130/80, Incorporates diet changes & exercise for blood pressure control by DC, Other additional outcomes/goals Interventions/plan: Instruct on optimal blood pressure, hypertension & medications, Instruct on effects of sodium, alcohol, stress, exercise &hypertension, Other additional plan/interventions 30 day Reassessments:: Progressing - Tobacco Cessation Referral Smoking Cessation Referral:: No Individual Education/Counseling:: No Education Schedule Given:: Yes Medical- 60-Day Assessment Medical- 90-Day Assessment Medical - Final Assessment Psychosocial - Initial Assess Psychosocial - 30-Day Assess - VIsit Date of Eval: 12/01/21 Session #:: 11 History of previous Mental disease:: No History of Emotional Disorders: Anxious, Alzheimer's Disease, Depression, Dementia, H/O Mental disease, Irrational Behavior, Suicidal Tendencies, None Self-reported stressors: Family, Financial, Medical/Health, Other, Recent Illness - Outcomes/Goals: See list Psychosocial Outcomes/Goals:: ID's personal stressors & 2 strategies to manage stress by discharge, Other Additional outcome/goals: - Intervention/Plan: See List Interventions/Plan:: Assess stressors,coping strategies & signs of derpression on admission, Instruct/assist pt to develop coping & personal stress Mgt strategies, Refer to Behavioral Health if appropriate, Refer to Physician if appropriate, Instruct patient to recognize signs & symptoms of depression, Instruct patient to recog, Other additional plan/intervention - 30-day Reassessments: 30 day Reassessments:: Progressing Psychosocial - 60-Day Assess Psychosocial - 90-Day Assess Psychosocial - Final Assessmen Patient Health Questionnaire 30-Day Re-eval Assessment 1. Little interest or pleasure in doing things: Not at all 2. Feeling down, depressed, or hopeless: Not at all 3. Trouble falling or staying asleep, or sleeping too much: Several days 4. Feeling tired or having little energy: Several days 5. Poor appetite or overeating: Not at all 6. Feeling bad about yourself -- or that you are a failure or have let yourself or your family down: Not at all 7. Trouble concentrating on things, such as reading the newspaper or watching television: Not at all 8. Moving or speaking so slowly that other people could have noticed. Or the opposite - being so fidgety or restless that you have been moving around a lot more than usual: Not at all 9. Thoughts that you would be better off , or of hurting yourself in some way: Not at all How difficult have these problems made it for you to do your work, take care of things at home, or get along with other people?: Not difficult at all Total Score: 2 Self-Efficacy 30-Day Re-eval Assessment We would like to know how confident you are in doing certain activities. Please select your confidence level for:: Select your confidence level for the following using the scale 1-10 where 1 is not at all confident and 10 is totally confident. Your score is the average of all 6 responses. Fatigue: How confident are you that you can keep the fatigue caused by your disease from interfering with the things you want to do? Select Number: 10 Physical Discomfort or Pain: How confident are you that you can keep the physical discomfort or pain of your disease from interfering with the things you want to do? Select Number: 6 Emotional Distress: How confident are you that you can keep the emotional distress caused by your disease from interfering with the things you want to do? Select Number: 6 Other Symptoms or Health Problems: How confident are you that you can keep other symptoms or health problems from interfering with the things you want to do? Select Number: 5 Different Tasks and Activities: How confident are you that you can do the different tasks and activities needed to manage your health condition so as to reduce your need to see a doctor? Select Number: 5 Medication: How confident are you that you can do things other than just taking medication to reduce how much your illness affects your everyday life? Select Number: 5 Total Score:: 6 Nutrition Survey
[2021-12-01 08:42] VITALS: BP 100/52; BP 110/60; BMI 25.5
== END 2021-12-09 23:59 ==
LOC: CR 10:30
PROVIDERS: PCP Family Medicine; Visit Provider Internal Medicine Cardiovascular Disease
DX: I25.10 Atherosclerotic heart disease of native coronary artery without angina pectoris (principal); I10 Essential (primary) hypertension; I21.4 Non-ST elevation (NSTEMI) myocardial infarction; Z95.1 Presence of aortocoronary bypass graft
CPT/HCPCS: 93798

== ENCOUNTER 2022-01-07 10:30 | Outpatient (RCR) | payer MEDICARE, SELFPAY ==
[2021-12-01 08:42] VITALS: BMI 25.5
[2021-12-10 00:44] VITALS: BP 100/52; BP 110/60
--- NOTE | 2021-12-29 08:05 | PCM.CR.ITP ---
Diagnosis Exercise - 60-day Assessment - Visit Date of Eval: 12/29/21 Session #:: 22 - Physician Prescribed Exercise Modalities: Treadmill, Airdyne, NuStep Frequency: 3x/week for 12 weeks [36 sessions] Intensity: 60-80% of age predicted maximum heart rate reserve Current METSs:: 4.5 Target Heart Rate:: 94-123 Current RPE:: 11-12 Maximum Excercise HR:: 84 Resting Blood Pressure: 102/56 Maximum Exercise Blood Pressure: 122/56 EKG Type: NSR Current Physical Activity or Exercising minutes: 38:00 - Outcomes & Goals Goals:: Verbalizes understanding of THR, RPE & goal METS by session 6, Documents in home exercise log/reports 30 min aerobic 5 day/wk by DC, Demonstrates accurate pulse taking by DC - Intervention & Plan Exercise Program Goals: Instruct on personal THR & RPE, Instruct on MET level & personal MET goal, Show patient to take own pulse /validate performance until accurate, Instruct on home exercise - 30-day Reassessments 30 day Reassessments:: Progressing - Physical Activity Home Exercise Physical Activity - Home Exercise: Safe Exercise, Warm-up, Self-monitoring, Cool-Down, Home Exercise > 30 min Daily, Sitting Time <3 hours/daily - Outcomes & Goals Outcomes/Goals: Demonstrates correct Warm-up/exercise Cool-Down (S3) if = 2.5 METs, Verbalizes symptoms of exercise intolerance by Session 3 (S3), Demonstrate safe equipment use (S3) & follows exercise prescrition (6) - Intervention & Plan Plan/Intervention: Instruct warm-up & cool-down if exercising at > 2 METs, Instruct on symptoms of exercise intolerance & actions to take, Instruct & monitor on saf, Assess intial functional capacity & safety risk - 30-day Reassessments 30 day Reassessments:: Met Nutrition - Initial Assessment Nutrition - 30-Day Assessment Nutrition - 60-Day Assessment - Program Goals Nutrition Program Goals: LDL <100 optimal. 100 - 129 Near optimal. 130 - 159 Borderline High. 160 - 189 High. Total Cholesterol <200 desirable. 200 - 239 Borderline High. >/= 240 High. HDL < 40 Low >/=60 High. Triglycerides <150 desirable. <199 optimal. VlDL 5 - 40. HgbA1C <7%. BMI <25 Patient has diagnosis of Hyperlipidemia (ICD E78)?: Yes - Visit Date of Assessment:: 12/29/21 Session #:: 22 - no recent labs drawn since admission - Cholesterol/Lipids Determine presence & major risk factors that modify LDL goal: Hypertension or hypertensive medication, Family history of premature CHD in Male < 55 years: female <65 yearsFa, Age men > 45 years; women >/= 55 years Outcomes/Goals: Pt IDs own risk factors & lifestyle modifications by Session 10, Verbalizes symptoms of angina & response by session 3., Pt independently manages Intervention/Plan: Instruct on personal lipid levels & lipid goals/NCEP guidelines, Instruct on cholesterol Referral to dietitian:: No 30-day Reassessments:: Progressing - Diabetes (Other Core Measures) Diabetes Type: Not Applicable - Weight Mgt (Other Care) Not Applicable: Yes Height: 5 ft 9 in Weight:: 171 lb BMI: 25.2 Diagnosis Overweight/Obesity BMI> 30% ICD-10 E66: No Diagnosis High BMI/Morbid Obesity BMI> 35% ICD-10 Z68: No Outcomes/Goals: Pt sets, maintains & shows weight loss goal & trend during rehab Intervention/Plan: Instruct on ideal BMI & set weight loss goal w/patient 30 day Reassessments:: Met - Healthy Eating Habits Will attend diet classes:: Yes Outcomes/Goals:: Consume diet rich in vegs,fruits,whole grain/high fiber,fish,lean meat, Limit sat/trans fats,cholesterol & added salts & sugars Intervention/Plan:: Assess current eating habits 30-day Reassessments:: Met - Education Gave educational materials for:: Healthy eating Nutrition - 90-Day Assessment Nutrition - Final Assessment Medical - Initial Assessment Medical- 30-Day Assessment Medical- 60-Day Assessment - Visit Date of Eval: 12/29/21 Session #:: 22 - Medication Compliance Preventative Medication(s):: Aspirin, Clopidogrel/P2Y12 inhibit, Statin/lipid, Beta praveen H/O mental health issues: depression, anxiety, or addiction?: No Doesn?t believe in the benefits of treatment?: No Believes medications are unnecessary or harmful?: No Has a concern about medication side effects?: No Expresses concern over the cost of medications?: No Outcomes/Goals: Verbalizes medications,desired effect & common side effects @ DC, Pt self-reports following medication regimen, Keeps card in wallet w/medications listed by DC Interventions/plans: Instruct on medication effects & side effects, Review medication list w/patient every two weeks, Instruct importance of taking meds as ordered & assist problem solving 30-day Reassessments:: Met - Tobacco Use Tobacco Use: Non-smoker - Hypertension Hypertension Diagnosis:: Hypertension ICD-10 I10 Resting Blood Pressure:: 110/50 [place] [employer] Hypertension Guidelines: [place] [employer] Hypertension Guidelines. Normal BP Less than 120/80. Elevated BP 120/80. Hypertension Stage 1: BP 130-139/80-89. Hypertesnion Stage 2: BP 140 or higher/90 or higher. Hypertension Crisis: BP higher than 180/120 Peak Exercise Blood Pressure:: 122/56 Outcomes/Goals: Able to verbalize/achieve optimal blood pressure <130/80, Incorporates diet changes & exercise for blood pressure control by DC Interventions/plan: Instruct on optimal blood pressure, hypertension & medications, Instruct on effects of sodium, alcohol, stress, exercise &hypertension 30 day Reassessments:: Met - Tobacco Cessation Referral Smoking Cessation Referral:: No Individual Education/Counseling:: No Education Schedule Given:: Yes Medical- 90-Day Assessment Medical - Final Assessment Psychosocial - Initial Assess Psychosocial - 30-Day Assess Psychosocial - 60-Day Assess - VIsit Date of Eval: 12/29/21 Session #:: 22 Not Applicable: Yes History of previous Mental disease:: No - Psychosocial Test Tool Used:: PHQ-9 Questionnaire phq-9 Severity: Severity. 1-4 Minimal Depression. 5-9 Mild Depression. 10-14 Moderate Depression. 15-19 Moderately Sever Depression. 20-27 Severe Depression. Rule: - Referral to Behavioral Health PS - Interventions: Yes Attend Stress Management Classes, No Referral to Behavioral Health if PHQ-9 score >9:, No Referral to [facility], No Referral to Physician if PHQ-9 if score is 5-9: - Outcomes/Goals: See list Psychosocial Outcomes/Goals:: ID's personal stressors & 2 strategies to manage stress by discharge - Intervention/Plan: See List Interventions/Plan:: Assess stressors,coping strategies & signs of derpression on admission, Instruct/assist pt to develop coping & personal stress Mgt strategies, Instruct patient to recognize signs & symptoms of depression, Instruct patient to recog - 30-day Reassessments: 30 day Reassessments:: Met Psychosocial - 90-Day Assess Psychosocial - Final Assessmen Patient Health Questionnaire 60-Day Re-eval Assessment 1. Little interest or pleasure in doing things: Not at all 2. Feeling down, depressed, or hopeless: Not at all 3. Trouble falling or staying asleep, or sleeping too much: Several days 4. Feeling tired or having little energy: Several days 5. Poor appetite or overeating: Not at all 6. Feeling bad about yourself -- or that you are a failure or have let yourself or your family down: Not at all 7. Trouble concentrating on things, such as reading the newspaper or watching television: Not at all 8. Moving or speaking so slowly that other people could have noticed. Or the opposite - being so fidgety or restless that you have been moving around a lot more than usual: Not at all 9. Thoughts that you would be better off , or of hurting yourself in some way: Not at all How difficult have these problems made it for you to do your work, take care of things at home, or get along with other people?: Not difficult at all Total Score: 2 Self-Efficacy 60-Day Re-eval Assessment We would like to know how confident you are in doing certain activities. Please select your confidence level for:: Select your confidence level for the following using the scale 1-10 where 1 is not at all confident and 10 is totally confident. Your score is the average of all 6 responses. Fatigue: How confident are you that you can keep the fatigue caused by your disease from interfering with the things you want to do? Select Number: 10 Physical Discomfort or Pain: How confident are you that you can keep the physical discomfort or pain of your disease from interfering with the things you want to do? Select Number: 8 Emotional Distress: How confident are you that you can keep the emotional distress caused by your disease from interfering with the things you want to do? Select Number: 8 Other Symptoms or Health Problems: How confident are you that you can keep other symptoms or health problems from interfering with the things you want to do? Select Number: 7 Different Tasks and Activities: How confident are you that you can do the different tasks and activities needed to manage your health condition so as to reduce your need to see a doctor? Select Number: 7 Medication: How confident are you that you can do things other than just taking medication to reduce how much your illness affects your everyday life? Select Number: 7 Total Score:: 7 Nutrition Survey
[2021-12-29 08:18] VITALS: BP 102/56; BP 110/50; BP 122/56; BMI 25.2
== END 2022-01-09 23:59 ==
LOC: CR 10:30
PROVIDERS: PCP Family Medicine; Referring Provider Internal Medicine Cardiovascular Disease; Visit Provider Internal Medicine Cardiovascular Disease
DX: I25.10 Atherosclerotic heart disease of native coronary artery without angina pectoris (principal); I10 Essential (primary) hypertension; I25.2 Old myocardial infarction; Z95.1 Presence of aortocoronary bypass graft
CPT/HCPCS: 93798

== ENCOUNTER 2022-01-28 10:30 | Outpatient (RCR) | payer MEDICARE, SELFPAY ==
[2021-12-29 08:18] VITALS: BMI 25.2
[2022-01-10 00:33] VITALS: BP 102/56; BP 110/50; BP 122/56
== END 2022-02-09 23:59 ==
LOC: CR 10:30
PROVIDERS: PCP Family Medicine; Referring Provider Internal Medicine Cardiovascular Disease; Visit Provider Internal Medicine Cardiovascular Disease
DX: I25.10 Atherosclerotic heart disease of native coronary artery without angina pectoris (principal); I10 Essential (primary) hypertension; I21.4 Non-ST elevation (NSTEMI) myocardial infarction; Z95.1 Presence of aortocoronary bypass graft
CPT/HCPCS: 93798

== ENCOUNTER 2022-02-12 10:11 | Emergency (ER) | payer MEDICARE, SELFPAY ==
[2021-12-29 08:18] VITALS: BMI 25.2
[2022-02-12] VITALS (8 sets, daily range): BP systolic 125–149; BP diastolic 60–70; PULSE 44–49; RESP 13–23; TEMP 35.8; O2SAT 98–100; BMI 25.2
--- NOTE | 2022-02-12 10:27 | MRI_ITS ---
STUDY: MRI BRAIN WITH AND WITHOUT CONTRAST REASON FOR EXAM: Male, 76 years old. Ataxia, prior brain tumor, TINNITUS, DIZZY TECHNIQUE: Standardized multiplanar fat and water weighted pulse sequences were obtained. IV 15cc clariscan was administered for the contrast portion of the examination. COMPARISON: Head CT dated April 03, 2012 FINDINGS: Superior occipital craniotomy defects and cortical plate screw constructs and left superior posterior parietal craniotomy defects reidentified. Underlying surgical defect/resective changes in the posterior superior aspect of the left parietal lobe are unchanged from the prior study and without evidence of a recurrent lesion. No additional skull abnormalities are present. No demonstrated focal brain parenchymal lesions or abnormal enhancement of the brain parenchyma or the meninges or dura. There is mild cerebral atrophy with widening of the extra-axial spaces and ventricular dilatation. There are a limited number of small white matter hyperintensities, distributed throughout the deep white matter tracts of the cerebral hemispheres, consistent with mild chronic white matter ischemic changes. There is no evidence for recent intracranial ischemia or other cause of cytotoxic edema on diffusion weighted imaging (DWI). Normal bilateral frontal poles, and orbital frontal and gyrus recti of the frontal lobes. Normal bilateral temporal tips of the temporal lobes. There are no white matter shear injuries (diffuse axonal injuries). There are no parenchymal hemorrhages or hematomas. There are no findings to suggest prior closed head parenchymal injury of the brain. Petechial microvascular hemosiderin staining is seen in the surgical resection bed of the left parietal lobe. Normal bilateral basal ganglia. Normal thalami. There is no extra-axial fluid accumulation. Normal flow voids within the major intracranial circulation suggesting patency by spin echo criteria. Normal venous enhancement. There is no enhancing intra-axial or extra-axial abnormality. Normal sella turcica, pituitary gland, infundibular stalk, optic chiasm and hypothalamus. Normal tectal plate and pineal gland. Normal midbrain, landon and medulla. Normal cerebellum. Normal basal cisterns. Normal bilateral temporal bones. Normal bilateral internal auditory canals. No demonstrated orbital abnormality, within the constraints of a routine brain study. Normal visualized paranasal sinuses. Normal calvarium and skull base. Normal visualized soft tissue structures. Normal visualized upper cervical spine. MRI/Brain W/WO Contrast IMPRESSION: 1. Chronic postoperative changes in the posterior superior aspect of the left parietal lobe and overlying skull 2. No recurrent lesions or new lesions in the remaining aspects of the brain 3. No acute infarct Electronically Signed: Chavez Garcia MD at 12:41 EDT ,
--- NOTE | 2022-02-12 10:29 | RAD_ITS ---
STUDY: X-RAY CHEST REASON FOR EXAM: Male, 76 years old patient with acute neurologic deficit. Acute stroke suspected. TECHNIQUE: Single AP portable view of the chest. COMPARISON: Chest radiograph dated 08/31/2021. FINDINGS: Cardiac monitoring leads are present. The patient is status post sternotomy. The lungs are clear and hyperexpanded. There is no demonstrated pleural abnormality. Normal size heart. Normal mediastinum and lito. Normal visualized pulmonary arteries. Normal visualized aortic arch and descending thoracic aorta. There are diffuse degenerative changes of the visualized thoracic spine. Normal visualized ribs, clavicles, and shoulders. There is no demonstrated abnormality of the visualized soft tissue structures of the upper abdomen. RAD/Chest 1 View IMPRESSION: No radiographic evidence of acute cardiopulmonary disease. Electronically Signed: Sarah Wang MD at 11:29 EDT ,
--- NOTE | 2022-02-12 10:29 | EKG12_ITS ---
Test Reason : DIZZY Blood Pressure : / mmHG Vent. Rate : 050 BPM Atrial Rate : 050 BPM P-R Int : 130 ms QRS Dur : 090 ms QT Int : 430 ms P-R-T Axes : 000 -06 018 degrees QTc Int : 392 ms Sinus bradycardia Cannot rule out Inferior infarct , age undetermined Abnormal ECG Confirmed by KEVIN VANG, FELIPE ([id number]), newspaper editor MEETA BROWN ([id number]) on 02/15/2022 9:05:55 AM Referred By: ANJEL Confirmed By:DION BROWN MD
--- NOTE | 2022-02-12 10:34 | ED.VIS.STROK ---
HPI History of Present Illness Chief Complaint: Dizziness Detail of Chief Complaint: Problems with balance and problem with hearing predominately left side Informant: patient and spouse/S.O. Limited: other (Very hard of hearing even with use of hearing aids) Onset/Context/Timing Onset: Weeks (Approximately 3 weeks ago) Context: Sudden Onset Timing: Continuous and Waxes and wanes Quality and Location: Positive for Difficulty with Ambulation and - (Problems with hearing and tinnitus left ear) Onset: Approximately 3 weeks ago Current Severity: Varies. Patient states worse in the morning Worsened by: Nothing Relieved by: Nothing Associated Symptoms Associated Symptoms: Positive for - (Tenderness and decreased hearing); Negative for Headache, Nausea, Vomiting or Chest Pain Narrative Narrative: Patient is a 76-year-old male who presents with dizziness. Patient is definition of dizziness is problems with his balance. This started 3 weeks ago while out gardening. He also reported ringing in his ears and roaring in his ears. He states he saw ENT and was placed on steroids. He reports his symptoms have not changed. He denies double vision, blurred vision loss of vision. He denies trouble with speech or swallowing. He denies paresthesia, anesthesia or motor weakness. He denies nausea, vomiting or diarrhea. He denies urologic symptoms. Patient had three-vessel bypass surgery 4 months ago at [facility]. Patient states he had brain surgery 11 years ago for a lesion. 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 New symptoms are involving his left ear. He does have history of seizure disorder, hypertension, non-ST elevation SD and status post three-vessel bypass surgery September 02, 2021. Patient is on anticonvulsant medication. There is a history of seizures. Patient's monitor reveals a sinus bradycardia rate varying from the upper 40s to low 50s. Patient is on a beta-praveen, 50 mg p.o. Prior similar symptoms: No Recent Illness/Hospitalization: No [facility] Medical History Atherosclerotic heart disease of [place] coronary artery without angina pectoris Bilateral carotid artery stenosis History of left heart catheterization (LHC) (~08/31/21) HTN (hypertension) Hypothyroidism Pleural effusion Seizure disorder Home Medications levetiracetam 500 mg tablet 500 mg PO BID 02/15/16 [History Last Taken 08/11/16] levothyroxine 100 mcg tablet (Euthyrox) 100 mcg PO DAILY 06/05/21 [History Last Taken Unknown] acetaminophen 325 mg tablet 650 mg PO Q4H PRN 09/13/21 [History Last Taken Unknown] aspirin 81 mg tablet,delayed release (Adult Low Dose Aspirin) 81 mg PO DAILY 09/13/21 [History Last Taken Unknown] atorvastatin 40 mg tablet 40 mg PO QHS 09/13/21 [History Last Taken Unknown] clopidogrel 75 mg tablet 75 mg PO DAILY 09/13/21 [History Last Taken Unknown] metoprolol tartrate 50 mg tablet 50 mg PO BID 09/13/21 [History Last Taken Unknown] polyethylene glycol 3350 17 gram/dose oral powder (Miralax) 4 g PO QHS 10/08/21 [History Last Taken Unknown] Handicap placard #1 ea 11/23/21 [Rx Last Taken Unknown] tamsulosin 0.4 mg capsule 0.4 mg PO DAILY 11/23/21 [History Last Taken Unknown] prednisone 10 mg tablet See Taper PO DAILY 02/12/22 [History Last Taken Unknown] Allergy/AdvReac Type Severity Reaction Status Date / Time No Known Allergies Allergy Verified 02/12/22 10:11 Family History Mother CAD (coronary artery disease) Father Carotid artery disease Surgical History History of back surgery History of carpal tunnel surgery History of coronary artery bypass surgery (~09/02/21) History of elbow surgery Hx of brain surgery Social History (Updated 02/12/22 @ 10:[address] Matt Navas MD) household members: spouse Smoking Status: Never smoker alcohol intake: never substance use type: does not use caffeine: No ROS ROS ED Constitutional Constitutional ED: Denies chills, fever(s), subjective, sweats or weakness Eyes Eyes: Denies blurry vision, change in vision or diplopia ENT ENT ED: Denies ear pain, rhinorrhea or sore throat Cardiovascular Cardiovascular: Denies chest pain, palpitations, paroxysmal nocturnal dyspnea or racing heartbeat Respiratory/Chest Respiratory/Chest: Denies cough, dyspnea, dyspnea on exertion or paroxysmal nocturnal dyspnea Gastrointestinal Gastrointestinal: Denies abdominal pain, melena, nausea or vomiting Genitourinary Genitourinary ED: Denies dysuria, hematuria or urinary frequency Musculoskeletal Musculoskeletal: Denies arthralgias, back pain, myalgias or neck pain Integumentary Denies Abrasions Neurologic Neurologic: Reports other Details: Per HPI narrative ; Denies headache(s), paresthesias or weakness Psychiatric Psychiatric: Denies anxiety or depression Endocrine Endocrinology: Denies polydipsia, polyphagia or polyuria Hematologic/Lymphatic Hematologic/Lymphatic: Denies easy bleeding or easy bruising EXAM Physical Exam Const Vital Signs: 02/12/22 10:12 02/12/22 10:21 02/12/22 10:27 Temperature 96.5 F L Temperature Source Temporal Pulse Rate 49 L 47 L Respiratory Rate 17 13 Respiratory Effort Normal Respiratory Pattern Normal Blood Pressure 125/62 H 139/70 H Blood Pressure Mean 83 93 Pulse Ox 99 100 Oxygen Delivery Method Room Air Room Air 02/12/22 10:35 02/12/22 10:35 02/12/22 11:04 Temperature Temperature Source Pulse Rate 45 L 48 L Respiratory Rate 16 15 Respiratory Effort Respiratory Pattern Blood Pressure 139/70 H 128/64 H Blood Pressure Mean 93 85 Pulse Ox 100 100 98 Oxygen Delivery Method Room Air Room Air Room Air 02/12/22 12:30 02/12/22 12:33 02/12/22 13:13 Temperature Temperature Source Pulse Rate 45 L 46 L 47 L Respiratory Rate 19 H 23 H 18 Respiratory Effort Respiratory Pattern Blood Pressure 149/70 H 149/70 H 129/60 H Blood Pressure Mean 96 96 83 Pulse Ox 99 99 98 Oxygen Delivery Method Room Air Room Air Room Air 02/12/22 14:18 Temperature Temperature Source Pulse Rate 44 L Respiratory Rate 18 Respiratory Effort Respiratory Pattern Blood Pressure 142/69 H Blood Pressure Mean 93 Pulse Ox 98 Oxygen Delivery Method Room Air Positive well nourished and well developed Constitutional Narrative: Pleasant elderly gentleman who is very hard of hearing. General Appearance ED: well developed and NAD HEENT Reports TM's clear and moist mucous membranes atraumatic and trauma Nose: other Other Details: Nares patent. No drainage. Uvula midline. No deviation of tongue with protrusion. Tympanic Membrane ED: Yes TM's clear Eyes PERRL and EOMs intact bilaterally Eyes Narrative: There is no nystagmus. There is no APD. Because of miosis difficult to see fundi. General Eye ED: Negative for pale conjunctiva or scleral icterus Neck no lymphadenopathy, supple and no JVD Chest Wall inspection of chest normal and palpation of chest normal Resp normal respiratory effort and clear to auscultation bilaterally Cardio no murmurs Cardio Narrative: Healing recent median sternotomy scar. Rhythm: regular rhythm Heart Sounds: S1 normal and S2 normal GI normal to inspection, nondistended, normoactive bowel sounds, soft to palpation, non-tender, non-distended and no masses GI Narrative: No palpable pulsatile mass. No abdominal bruit. Back/Spine no CVA tenderness Cervical Spine: Negative for cervical spine tenderness Thoracic Spine / Upper Back: Negative for thoracic spinal tenderness Lumbar Spine / Lower Back: Negative for lumbar spinal tenderness Extremity normal to inspection Extremity Narrative: Minimal pitting edema of the feet and distal right and left leg. General Extremety ED: Yes edema General Extremity: edema Neuro oriented x3, CN's II-XII intact bilaterally and no sensory deficits noted Neuro Narrative: There is no dysmetria. Romberg with eyes open and close normal. Klarissa-Hallpike test negative. The eye askew test was negative. Gait observed. Patient has a broad-based ataxic gait. states he had to since he is complaining of problems with his hearing and balance. He is able to walk on his heels and toes. He has difficulty walking backwards. He is unable to perform tandem gait without falling. Leisa Coma Scale: document GCS findings Spontaneous Obeys Commands Oriented 15 Sensorium / Orientation: alert, oriented to person, oriented to place and oriented to time Speech: speech normal Gait (Neuro): Negative for normal gait Psych mental status grossly normal Skin no wounds General Skin Exam: Negative for jaundice Lesions: no lesions Rashes: no rashes MDM MDM MDM Narrative Medical decision making narrative: With ataxic gait and problems with hearing for the past 3 weeks with pain MRI to determine if this is due to an intracranial process versus a peripheral process. Suspect central process. Lab Data Attestation: I reviewed the patient's lab results. Lab results narrative: White count is slightly elevated which is insignificant. Coags normal. Electrolyte panel is unremarkable. Blood sugar is elevated 153. Labs: Laboratory Results - last 24 hr 02/12/22 02/12/22 02/12/22 10:35 10:35 10:35 WBC 11.5 H RBC 4.97 Hgb 14.4 Hct 44.1 MCV 88.7 MCH 29.0 MCHC 32.7 RDW Std Deviation 49.3 H RDW Coeff of Víctor 15.8 H Plt Count 259 MPV 10.7 Immature Gran % (Auto) 1.900 H Neut % (Auto) 83.6 H Lymph % (Auto) 7.6 L [place] % (Auto) 6.4 Eos % (Auto) 0.2 Baso % (Auto) 0.3 Absolute Neuts (auto) 9.6 H Absolute Lymphs (auto) 0.88 Nucleated RBC % 0 PT 13.5 INR 1.1 APTT 26.5 Sodium 139 Potassium 4.1 Chloride 109 H Carbon Dioxide 28.0 Anion Gap 2 L BUN 22 H Creatinine 1.03 Estim Creat Clear Calc 61.97 Est GFR (MDRD) Af Amer 90 Est GFR (MDRD) Non-Af 75 BUN/Creatinine Ratio 21.4 H Glucose 153 H Calcium 8.7 Troponin I High Sens 6 Radiography Diagnostic Testing: Clinical Impression(s) from Imaging Studies Brain MRI 02/12/22 10:27 IMPRESSION: 1. Chronic postoperative changes in the posterior superior aspect of the left parietal lobe and overlying skull 2. No recurrent lesions or new lesions in the remaining aspects of the brain 3. No acute infarct Electronically Signed: Chavez Garcia MD at 12:41 EDT Reading Location ID and State: [address] [place] [address] , Service support , Chest X-Ray 02/12/22 10:29 IMPRESSION: No radiographic evidence of acute cardiopulmonary disease. Electronically Signed: Sarah Wang MD at 11:29 EDT Reading Location ID and State: [facility] / [place] , Service support , View chest x-ray reveals no acute process. Cardiac silhouette size unremarkable. Sternotomy wires noted. Perihilar regions unremarkable. Osseous trucks unremarkable. Lung parenchyma is normal. Discharge Plan Triage Chief Complaint: Dizziness ED Provider: Matt Navas Dx/Rx/DC Orders Clinical Impression: Ataxia, Tinnitus, left ear Instructions: ED Vertigo, Unspecified Prescriptions: No Action polyethylene glycol 3350 [Miralax] 17 gram/dose powder 4 g PO QHS tamsulosin 0.4 mg capsule 0.4 mg PO DAILY (DME) Handicap placard See Rx Instructions .Route .MEDSUPPLY Qty: 1 0RF Rx Instructions: Expiration date: unlimited levetiracetam 500 MG tablet 500 mg PO BID levothyroxine [Euthyrox] 100 mcg tablet 100 mcg PO DAILY prednisone 10 mg tablet See Taper PO DAILY Taper: Prednisone Taper 60 mg WITH BREAKFAST for 3 Days and 0 Hour 50 mg WITH BREAKFAST for 3 Days and 0 Hour 40 mg WITH BREAKFAST for 3 Days and 0 Hour 30 mg WITH BREAKFAST for 3 Days and 0 Hour 20 mg WITH BREAKFAST for 3 Days and 0 Hour 10 mg WITH BREAKFAST for 3 Days and 0 Hour Label Comments: take 3 tablets by mouth twice a day for 4 days then take 2 tablet... (REFER TO PRESCRIPTION NOTES). acetaminophen 325 mg tablet 650 mg PO Q4H PRN clopidogrel 75 mg tablet 75 mg PO DAILY atorvastatin 40 mg tablet 40 mg PO QHS metoprolol tartrate 50 mg tablet 50 mg PO BID aspirin [Adult Low Dose Aspirin] 81 mg tablet,delayed release (DR/EC) 81 mg PO DAILY Primary Care Provider: Chrissy Elizabeth Referrals: Chrissy Elizabeth MD [Primary Care Provider] - Activity Restrictions/Additional Instructions: You will need to contact Dr. Chrissy Elizabeth this coming Monday. You will need an outpatient work-up to determine the reason you are walking abnormally. This would include a spinal tap. You probably will need a referral to a neurologist. You may need an MRI of your spine. Disposition Disposition: Home, Self Care
[2022-02-12 10:44] LABS: Absolute Lymphocyte Count 0.88 X10^3/uL (0.83-4.51); Absolute Neutrophil Count 9.6 X10^3/uL (2.0-7.7); Basophil# 0.04 X10^3/uL; Basophil% 0.3 % (0-1); Eosinophil# 0.02 X10^3/uL; Eosinophils% 0.2 % (0-5); Hematocrit 44.1 % (40-54); Hemoglobin 14.4 g/dL (13.0-16.5); Lymphocyte # 0.88 X10^3/ul (0.83-4.51); Lymphocyte % 7.6 % (19-41); Mean Corp Hgb Conc 32.7 g/dL (32-36); Mean Corpuscular Volume 88.7 fL (80-94); Mean Platelet Vol. 10.7 fl (6.2-12.0); Monocyte# 0.74 X10^3/uL; Monocyte% 6.4 % (0-10); NRBC Flagged by Analyzer 0 % (0-5); Neutrophil # 9.61 X10^3/uL (2.7-7.7); Neutrophil % 83.6 % (47-70); Platelet Count 259 K/mm3 (150-450); RBC Distribution Width CV 15.8 % (11.6-14.6); RBC Distribution Width SD 49.3 fl (35.1-43.9); Red Blood Count 4.97 M/mm3 (4.6-6.2); White Blood Count 11.5 K/mm3 (4.4-11.0)
[2022-02-12 10:54] LABS: International Normalized Ratio 1.1; Prothrombin Time (Protime)PT. 13.5 SECONDS (11.7-14.9)
[2022-02-12 10:55] LABS: Partial Thromboplast Time 26.5 Seconds (24.1-36.2)
[2022-02-12 11:00] LABS: Anion Gap 2 (5-15); BUN 22 mg/dL (7-18); BUN/Creat Ratio 21.4 RATIO (10-20); Calcium,Total 8.7 mg/dL (8.5-10.1); Chloride 109 mmol/L (98-107); Creatinine, Serum 1.03 mg/dL (0.70-1.30); EST Glomerular Filtration Rate 75 mL/min (>60); Est Glom Filt Rate - Afr Amer 90 mL/min (>60); Estimated Creatinine Clearance 61.97 ml/min; Glucose 153 mg/dL (74-106); Potassium 4.1 mmol/L (3.5-5.1); Sodium Level 139 mmol/L (136-145); Troponin-I HS 6 pg/mL (3.0-78.0)
--- NOTE | 2022-02-12 12:28 | ED.RN ---
Patient in MRI, NIH and VS not performed during this time.
== END 2022-02-12 14:49 | disposition home or self-care (01) ==
PROVIDERS: Emergency Provider Emergency Medicine; PCP Family Medicine; Visit Provider Emergency Medicine
DX: R27.0 Ataxia, unspecified (principal); G40.909 Epilepsy, unspecified, not intractable, without status epilepticus; H93.12 Tinnitus, left ear; I25.10 Atherosclerotic heart disease of native coronary artery without angina pectoris; I10 Essential (primary) hypertension; I25.2 Old myocardial infarction; E03.9 Hypothyroidism, unspecified; Z95.1 Presence of aortocoronary bypass graft; Z79.82 Long term (current) use of aspirin; Z79.899 Other long term (current) drug therapy
CPT/HCPCS: 70553; 71045; 80048; 84484; 85025; 85610; 85730; 93005; 99285; A9575; A4216

== ENCOUNTER → 2022-12-22 | Outpatient (CLI) | payer MEDICARE, SELFPAY ==
[2021-12-29 08:18] VITALS: BMI 25.2
--- NOTE | 2022-12-22 08:06 | CDU_ITS ---
Reason For Study: Carotid artery stenosis bilateral Rt. Velocities/BP Lt. Velocities/BP Prox CCA 91.9/12.6 cm/sec. Prox CCA 77.3/12.4 cm/sec. Mid CCA 62.6/11.6 cm/sec. Mid CCA 71.8/13.5 cm/sec. Dist CCA 51.3/11.6 cm/sec. Dist CCA 68.5/15.7 cm/sec. Prox ICA 308.1/65.6 cm/sec. Prox ICA 169.7/42.4 cm/sec. Mid ICA 174.4/34.5 cm/sec. Mid ICA 158.7/40.2 cm/sec. Dist ICA 83.9/17.6 cm/sec. Dist ICA 139/24.8 cm/sec. Rt. ICA/CCA = 4.92. Lt. ICA/CCA = 2.36. Prox ECA 88.3 cm/sec. Prox ECA 93.8/5.8 cm/sec. Rt. Vert. 23/7.3 cm/sec. Lt. Vert. 45.6/13.3 cm/sec. Right Extracranial There is homogeneous, smooth atherosclerotic plaque noted in the right common carotid artery. There is heterogeneous, irregular atherosclerotic plaque noted in the right internal carotid artery. There is intimal thickening but no significant atherosclerotic plaque noted in the right external carotid artery. Abnormal waveform morphology noted in the right vertebral artery. Left Extracranial There is homogeneous, smooth atherosclerotic plaque noted in the left common carotid artery. There is heterogeneous, irregular atherosclerotic plaque noted in the left internal carotid artery. There is heterogeneous, irregular atherosclerotic plaque noted in the left external carotid artery. Antegrade flow is noted in the left vertebral artery. There is heterogeneous, irregular atherosclerotic plaque noted in the left bulb. Procedure Carotid Duplex 29772. This is a Carotid Duplex examination using B-mode, color flow and specral Doppler. Exam performed in department. VL/Carotid Duplex Ultrasound Interpretation Summary Severe (>70%) stenosis right extracranial internal carotid. Moderate (50-69%) s tenosis left extracranial internal carotid. Flow within the left verterbral artery is antegr dao. Abnormal waveform right vertebral. Ordering Physician: Siddharth Feldman Referring Physician: Chrissy Elizabeth Performed By: Tammy Alford RVT
== END | disposition home or self-care (01) ==
LOC: CVS 08:05
PROVIDERS: PCP Family Medicine; Referring Provider Surgery Vascular Surgery; Visit Provider Surgery Vascular Surgery
DX: I65.23 Occlusion and stenosis of bilateral carotid arteries (principal); Z86.73 Personal history of transient ischemic attack (TIA), and cerebral infarction without residual deficits
CPT/HCPCS: 93880

== ENCOUNTER 2023-03-30 12:03 | Emergency (ER) | payer MEDICARE, SELFPAY ==
[2021-12-29 08:18] VITALS: BMI 25.2
[2023-03-30 12:03] VITALS: BP 135/76; PULSE 58; RESP 14; TEMP 36.4; O2SAT 100; BMI 25.1
--- NOTE | 2023-03-30 12:55 | EKG12_ITS ---
Test Reason : POST CP Blood Pressure : / mmHG Vent. Rate : 055 BPM Atrial Rate : 055 BPM P-R Int : 140 ms QRS Dur : 076 ms QT Int : 418 ms P-R-T Axes : -28 000 037 degrees QTc Int : 399 ms Sinus bradycardia Inferior infarct (cited on or before 12-FEB-2022) Abnormal ECG Confirmed by KEVIN VANG, FELIPE ([id number]), restaurant expeditor NAT YANCEY ([id number]) on 04/04/2023 12:49:23 PM Referred By: JUDITH/PRISCILA Confirmed By:DION BROWN MD
--- NOTE | 2023-03-30 12:56 | EDS_ITS ---
HPI History of Present Illness Chief Complaint: Chest Pain Informant: patient and family Narrative Narrative: Presents here with family evaluation stated yesterday felt tingling left hand, at night recurrent tingling with palpitations in his chest lasted approximately 1 minute resolved had recurrent symptoms at the night but there is no lightheaded symptoms. No cardiac dysrhythmia history. History of coronary disease three-vessel bypass over a year ago followed by Dr. Almonte at [place]. He is on aspirin and Plavix. He takes metoprolol 50 mg twice daily. 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 Denies diabetes. History of hypertension. No recent cough. No dyspnea. Currently asymptomatic. Prior similar symptoms: No PFSH PFS Medical History Atherosclerotic heart disease of [place] coronary artery without angina pectoris Bilateral carotid artery stenosis History of left heart catheterization (LHC) (~08/31/21) HTN (hypertension) Hypothyroidism Pleural effusion Seizure disorder Home Medications levetiracetam 500 mg tablet 500 mg PO BID 02/15/16 [History Last Taken 08/11/16] levothyroxine 100 mcg tablet (Euthyrox) 100 mcg PO DAILY 06/05/21 [History Last Taken Unknown] acetaminophen 325 mg tablet 650 mg PO Q4H PRN 09/13/21 [History Last Taken Unknown] aspirin 81 mg tablet,delayed release (Adult Low Dose Aspirin) 81 mg PO DAILY 09/13/21 [History Last Taken Unknown] atorvastatin 40 mg tablet 40 mg PO QHS 09/13/21 [History Last Taken Unknown] clopidogrel 75 mg tablet 75 mg PO DAILY 09/13/21 [History Last Taken Unknown] metoprolol tartrate 50 mg tablet 50 mg PO BID 09/13/21 [History Last Taken Unknown] polyethylene glycol 3350 17 gram/dose oral powder (Miralax) 4 g PO QHS 10/08/21 [History Last Taken Unknown] Handicap placard #1 ea 11/23/21 [Rx Last Taken Unknown] Allergy/AdvReac Type Severity Reaction Status Date / Time No Known Allergies Allergy Verified 03/30/23 12:03 Family History Mother CAD (coronary artery disease) Father Carotid artery disease Surgical History History of back surgery History of carpal tunnel surgery History of coronary artery bypass surgery (~09/02/21) History of elbow surgery Hx of brain surgery Social History household members: spouse Smoking Status: Former smoker alcohol intake: never substance use type: does not use caffeine: No ROS ROS ED Constitutional Constitutional ED: Denies chills, fever(s) or sweats Eyes Eyes: Denies change in vision ENT ENT ED: Denies dysphagia or sore throat Cardiovascular Cardiovascular: Reports palpitations; Denies chest pain, leg edema or racing heartbeat Respiratory/Chest Respiratory/Chest: Denies cough, dyspnea or dyspnea on exertion Gastrointestinal Gastrointestinal: Denies abdominal pain, diarrhea, nausea or vomiting Genitourinary Genitourinary ED: Denies dysuria, hematuria or urinary frequency Musculoskeletal Musculoskeletal: Denies back pain, extremity pain or neck pain Integumentary Denies rash or wounds Neurologic Neurologic: Reports paresthesias; Denies headache(s) or weakness EXAM Physical Exam Const Vital Signs: 03/30/23 12:03 03/30/23 12:18 Temperature 97.6 F L Temperature Source Temporal Pulse Rate 58 L Respiratory Rate 14 Respiratory Effort Normal Non-Labored Blood Pressure 135/76 H Blood Pressure Mean 95 Pulse Ox 100 Oxygen Delivery Method Room Air Positive well nourished and well developed General Appearance ED: well developed and NAD HEENT Reports moist mucous membranes normocephalic and atraumatic Eyes PERRL, EOMs intact bilaterally and conjunctivae normal General Eye ED: Yes normal appearance of both eyes Neck no lymphadenopathy and supple General: Negative for tenderness Chest Wall Chest: Negative for tenderness Resp normal respiratory effort and normal air movement Effort and Inspection: symmetric chest movement; Negative for respiratory distress Cardio regular rate, regular rhythm and no murmurs Peripheral Pulses: pulses 2+ throughout GI normal to inspection, nondistended, normoactive bowel sounds and non-tender Palpation: Negative for guarding or rebound tenderness present Back/Spine no CVA tenderness and no thoracic nor lumbar tenderness Extremity normal to inspection General Extremety ED: Negative for edema or tenderness General Extremity: Negative for edema Neuro oriented x3 and no sensory deficits noted Sensorium / Orientation: awake and alert Skin no rashes or lesions noted and no wounds MDM MDM MDM Narrative Medical decision making narrative: Interventions / MDM: Differential diagnosis: Cardiac dysrhythmia, chest pain Diagnosis considered but do not suspect: N/A My EKG interpretation: Sinus rate of 55, no ST or T wave changes. Imaging independently reviewed and interpreted by myself: 1 chest x-ray: No acute process also read by radiology. External documents reviewed: N/A Test considered but not ordered:N/A ED course: Patient palpitations left hand tingling. Coronary history. EKG sinus bradycardia is on metoprolol. Cardiac work-up initiated. Episode nursing print out concerning for a run of dysrhythmia was tachycardic. Due to patient's cardiac history and bleeding stroke history for possible anticoagulants if this is A-fib. I did send this to on-call [id number] Dr. Romero, agrees likely artifact with breathing. He was asymptomatic during that time. Troponin negative x2. Slightly elevated TSH however free T4 levels normal. Patient set up with a 48-hour Holter monitor. 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 All questions answered. Re-evaluation: stable Disposition discussed with patient/family/significant other: Patient and family Case discussed with consulting clinician: Cardiology This note was generated with [employer] dictation software. It may contain incorrect words, spelling, and punctuation that were not noted in checking the note before signing. Lab Data Attestation: I reviewed the patient's lab results. Labs: Laboratory Results - last 24 hr 03/30/23 03/30/23 13:05 15:26 WBC 6.3 RBC 4.94 Hgb 14.6 Hct 44.0 MCV 89.1 MCH 29.6 MCHC 33.2 RDW Std Deviation 45.7 H RDW Coeff of Víctor 14.1 Plt Count 240 MPV 10.5 Immature Gran % (Auto) 0.600 Neut % (Auto) 59.7 Lymph % (Auto) 23.3 [place] % (Auto) 8.9 Eos % (Auto) 6.7 H Baso % (Auto) 0.8 Absolute Neuts (auto) 3.8 Absolute Lymphs (auto) 1.47 Nucleated RBC % 0 PT 13.6 INR 1.0 APTT 31.5 Sodium 141 Potassium 4.2 Chloride 109 H Carbon Dioxide 30.0 Anion Gap 2 L BUN 15 Creatinine 1.12 Estim Creat Clear Calc 56.11 Est GFR (MDRD) Af Amer 82 Est GFR (MDRD) Non-Af 68 BUN/Creatinine Ratio 13.4 Glucose 99 Calcium 9.3 Troponin I High Sens 6 6 TSH 6.02 H Free T4 1.26 Radiography Diagnostic Testing: Clinical Impression(s) from Imaging Studies Chest X-Ray 03/30/23 13:10 IMPRESSION: Stable chest with no acute or active cardiopulmonary disease. Electronically Signed: Zachary Morgan MD at 13:22 EDT , Discharge Plan Triage Chief Complaint: Chest Pain ED Provider: Titi Shepard Dx/Rx/DC Orders Clinical Impression: Palpitations, Chest pain, CAD (coronary artery disease) Instructions: ED Chest Pain, Uncertain Cause, ED Palpitations Prescriptions: No Action polyethylene glycol 3350 [Miralax] 17 gram/dose powder 4 g PO QHS (DME) Handicap placard See Rx Instructions .Route .MEDSUPPLY Qty: 1 0RF Rx Instructions: Expiration date: unlimited levetiracetam 500 MG tablet 500 mg PO BID levothyroxine [Euthyrox] 100 mcg tablet 100 mcg PO DAILY acetaminophen 325 mg tablet 650 mg PO Q4H PRN clopidogrel 75 mg tablet 75 mg PO DAILY atorvastatin 40 mg tablet 40 mg PO QHS metoprolol tartrate 50 mg tablet 50 mg PO BID aspirin [Adult Low Dose Aspirin] 81 mg tablet,delayed release (DR/EC) 81 mg PO DAILY Primary Care Provider: Chrissy Elizabeth Referrals: Chrissy Elizabeth MD [Primary Care Provider] - 1 Week Activity Restrictions/Additional Instructions: Your cardiac work-up negative. EKG is sinus rhythm. You had elevated TSH of 6.02 however free T4 level is 1.26 normal levels. 48-hour Holter monitor was placed for further evaluation. Follow-up with your heart doctor for reevaluation. Return for any recurrent or worsening symptoms. Disposition Disposition: Home, Self Care
[2023-03-30 13:03] VITALS: RESP 18
--- NOTE | 2023-03-30 13:10 | RAD_ITS ---
STUDY: X-RAY CHEST REASON FOR EXAM: Male, 77 years old. Palpitations. TECHNIQUE: Single frontal view of the chest. COMPARISON: February 12, 2022. FINDINGS: Cardiomegaly, sternotomy wires, aortic tortuosity with calcification, prominent central pulmonary arteries and hyperinflation, unchanged. No active or acute cardiopulmonary disease. No abnormality of the visualized soft tissue structures of the upper abdomen. RAD/Chest 1 View (Portable) IMPRESSION: Stable chest with no acute or active cardiopulmonary disease. Electronically Signed: Zachary Morgan MD at 13:22 EDT ,
[2023-03-30 13:21] LABS: Absolute Lymphocyte Count 1.47 X10^3/uL (0.83-4.51); Absolute Neutrophil Count 3.8 X10^3/uL (2.0-7.7); Basophil# 0.05 X10^3/uL; Basophil% 0.8 % (0-1); Eosinophil# 0.42 X10^3/uL; Eosinophils% 6.7 % (0-5); Hemoglobin 14.6 g/dL (13.0-16.5); Lymphocyte # 1.47 X10^3/ul (0.83-4.51); Lymphocyte % 23.3 % (19-41); Mean Corp Hgb Conc 33.2 g/dL (32-36); Mean Corpuscular Hgb 29.6 pg (27.0-32.0); Mean Corpuscular Volume 89.1 fL (80-94); Mean Platelet Vol. 10.5 fl (6.2-12.0); Monocyte# 0.56 X10^3/uL; Monocyte% 8.9 % (0-10); NRBC Flagged by Analyzer 0 % (0-5); Neutrophil # 3.76 X10^3/uL (2.7-7.7); Neutrophil % 59.7 % (47-70); Platelet Count 240 K/mm3 (150-450); RBC Distribution Width CV 14.1 % (11.6-14.6); RBC Distribution Width SD 45.7 fl (35.1-43.9); Red Blood Count 4.94 M/mm3 (4.6-6.2); White Blood Count 6.3 K/mm3 (4.4-11.0)
[2023-03-30 13:29] LABS: Prothrombin Time (Protime)PT. 13.6 SECONDS (11.7-14.9)
[2023-03-30 13:30] LABS: Partial Thromboplast Time 31.5 Seconds (24.1-36.2)
[2023-03-30 13:47] LABS: Anion Gap 2 (5-15); BUN 15 mg/dL (7-18); BUN/Creat Ratio 13.4 RATIO (10-20); Calcium,Total 9.3 mg/dL (8.5-10.1); Chloride 109 mmol/L (98-107); Creatinine, Serum 1.12 mg/dL (0.70-1.30); EST Glomerular Filtration Rate 68 mL/min (>60); Est Glom Filt Rate - Afr Amer 82 mL/min (>60); Estimated Creatinine Clearance 56.11 ml/min; Glucose 99 mg/dL (74-106); Potassium 4.2 mmol/L (3.5-5.1); Sodium Level 141 mmol/L (136-145); Thyroid Stim Hormone (TSH) 6.02 uIU/mL (0.358-3.74); Troponin-I HS (w/2H Reflex) 6 pg/mL (3.0-78.0)
[2023-03-30 14:03] VITALS: RESP 18
--- NOTE | 2023-03-30 14:23 | CM.ED ---
Social Work SW performed chart review; LW and HCPOA on file as of 2021. Patient's HCPOA is patient's , Ceci and alternates are Susan and patient's daughter Julia. Patient indicated the following special instructions, I hereby request that I not be placed on life support. Radha Rick CAMERA MAKER, ELLI
[2023-03-30 15:03] VITALS: RESP 18
[2023-03-30 15:16] LABS: Reflex Troponin-HS? (from REC) Y
[2023-03-30 15:17] LABS: T4 Free Direct 1.26 ng/dL (0.76-1.46)
[2023-03-30 16:00] LABS: Troponin-I HS 6 pg/mL (3.0-78.0)
[2023-03-30 16:03] VITALS: BP 132/83; PULSE 56; RESP 16; O2SAT 97
== END 2023-03-30 16:46 | disposition home or self-care (01) ==
PROVIDERS: Emergency Provider Emergency Medicine; PCP Family Medicine; Visit Provider Emergency Medicine
DX: R00.2 Palpitations (principal); R07.9 Chest pain, unspecified; I25.10 Atherosclerotic heart disease of native coronary artery without angina pectoris; I10 Essential (primary) hypertension; Z87.891 Personal history of nicotine dependence; Z95.1 Presence of aortocoronary bypass graft; Z79.82 Long term (current) use of aspirin; Z79.01 Long term (current) use of anticoagulants; Z79.899 Other long term (current) drug therapy
CPT/HCPCS: 71045; 80048; 84439; 84443; 84484; 85025; 85610; 85730; 93005; 99285; A4216

== ENCOUNTER → 2023-03-30 | Outpatient (CLI) | payer MEDICARE, SELFPAY ==
[2021-12-29 08:18] VITALS: BMI 25.2
== END | disposition home or self-care (01) ==
LOC: CVS 16:54
PROVIDERS: PCP Family Medicine; Visit Provider Emergency Medicine
DX: Z00.00 Encounter for general adult medical examination without abnormal findings (principal)

== ENCOUNTER → 2023-05-29 | Outpatient (CLI) | payer MEDICARE, SELFPAY ==
[2021-12-29 08:18] VITALS: BMI 25.2
[2023-05-29 10:53] LABS: AST(SGOT) 16 U/L (15-37); Alanine Aminotransfer ALT/SGPT 14 U/L (16-61); Cholesterol 110 mg/dL (200); High Density Lipoprotein 52 mg/dL; Triglycerides 71 mg/dL; Very Low Density Lipoprotein 14 mg/dL (5-40)
== END | disposition home or self-care (01) ==
LOC: LAB 09:42
PROVIDERS: PCP Family Medicine; Referring Provider Internal Medicine Cardiovascular Disease; Visit Provider Internal Medicine Cardiovascular Disease
DX: I25.10 Atherosclerotic heart disease of native coronary artery without angina pectoris (principal); E78.5 Hyperlipidemia, unspecified
CPT/HCPCS: 36415; 80061; 84450; 84460

== ENCOUNTER → 2023-12-15 | Outpatient (CLI) | payer MEDICARE, SELFPAY ==
[2021-12-29 08:18] VITALS: BMI 25.2
--- NOTE | 2023-12-15 14:38 | ECHOD_ITS ---
Reason For Study: ASHD/CAD Procedure This was a 2D Doppler, Color Flow transthoracic echocardiogram. Exam performed in department. Left Ventricle Normal size and thickness. The left ventricular ejection fraction is 60 %. Normal diastology for age. Right Ventricle Normal right ventricle. Atria The left and right atria are normal. Mitral Valve Redundant chords. Chordal MIREYA with no significant LVOT gradient. Mild (1+) mitral valve insufficiency. Tricuspid Valve Mild tricuspid valve insufficiency. Normal pulmonary artery pressure. Aortic Valve Aortic sclerosis, no stenosis. Mild (1+) aortic valve insufficiency. Pulmonic Valve The pulmonic valve is not well visualized. Great Vessels Normal sized aortic root. Pericardium/Pleural No pericardial effusion. MMode/2D Measurements & Calculations LVIDd: 4.3 cm IVSd: 1.1 cm Ao root diam: 3.6 cm LVIDs: 2.7 cm LVPWd: 1.0 cm LA dimension: 3.6 cm FS: 37.1 % LAV(MOD-bp): 44.2 ml LVAd ap4: 22.8 cm2 SV(MOD-sp4): 36.8 ml LAV(MOD-bp) Indexed: 22.9 ml/m2 LVLd ap4: 7.2 cm LAV(MOD-sp2): 46.8 ml EDV(MOD-sp4): 60.3 ml LAV(MOD-sp4): 36.3 ml EDV(sp4-el): 61.8 ml LVAs ap4: 12.9 cm2 LVLs ap4: 6.3 cm ESV(MOD-sp4): 23.4 ml ESV(sp4-el): 22.5 ml EF(MOD-sp4): 61.1 % EF(sp4-el): 63.5 % SV(sp4-el): 39.2 ml LA A4 area: 14.4 cm2 RA A4 area: 9.7 cm2 TAPSE: 1.4 cm Time Measurements MV dec time: 0.24 sec Doppler Measurements & Calculations MV E max efra: 73.5 cm/sec Lat Peak E' Efra: 13.5 cm/sec Med Peak E' Efra: 7.4 cm/sec MV A max efra: 102.8 cm/sec E/E' lat: 5.5 E/E' med: 10.0 MV E/A: 0.71 MV V2 max: 113.2 cm/sec MV P1/2t max efra: 83.7 cm/sec Ao V2 max: 149.5 cm/sec MV max P.1 mmHg MV P1/2t: 84.8 msec Ao max P.0 mmHg MV V2 mean: 48.6 cm/sec MV dec slope: 289.0 cm/sec2 Ao V2 mean: 102.4 cm/sec MV mean P.2 mmHg Ao mean P.8 mmHg MV V2 VTI: 34.7 cm MVA(P1/2t): 2.6 cm2 Ao V2 VTI: 35.6 cm AV (velocity ratio): 0.74 AI max efra: 432.1 cm/sec LV V1 max: 105.4 cm/sec PA V2 max: 86.8 cm/sec AI max P.7 mmHg LV V1 max P.5 mmHg AI dec slope: 239.8 cm/sec2 LV V1 mean P.6 mmHg AI P1/2t: 527.7 msec LV V1 mean: 76.9 cm/sec LV V1 VTI: 26.3 cm TR max efra: 255.5 cm/sec TR max P.1 mmHg ECHO/Echo Complete Interpretation Summary The left ventricular ejection fraction is 60 %. Redundant chords. Chordal MIREYA with no significant LVOT gradient. Mild (1+) mitral valve insufficiency. Mild tricuspid valve insufficiency. Mild (1+) aortic valve insufficiency. Ordering Physician: Crispin Bailey Referring Physician: Crispin Bailey Performed By: Brady Pruitt RCS
== END | disposition home or self-care (01) ==
PROVIDERS: PCP Family Medicine; Referring Provider Internal Medicine Cardiovascular Disease; Visit Provider Internal Medicine Cardiovascular Disease
DX: I25.10 Atherosclerotic heart disease of native coronary artery without angina pectoris (principal); I10 Essential (primary) hypertension; R06.02 Shortness of breath; R53.83 Other fatigue
CPT/HCPCS: 93306

== ENCOUNTER → 2023-12-18 | Outpatient (CLI) | payer MEDICARE, SELFPAY ==
[2021-12-29 08:18] VITALS: BMI 25.2
[2023-12-18 08:40] LABS: Hematocrit 40.2 % (40-54); Hemoglobin 13.2 g/dL (13.0-16.5); Mean Corp Hgb Conc 32.8 g/dL (32-36); Mean Corpuscular Hgb 29.7 pg (27.0-32.0); Mean Corpuscular Volume 90.5 fL (80-94); Mean Platelet Vol. 10.5 fl (6.2-12.0); Platelet Count 228 K/mm3 (150-450); RBC Distribution Width CV 14.2 % (11.6-14.6); RBC Distribution Width SD 47.3 fl (35.1-43.9); Red Blood Count 4.44 M/mm3 (4.6-6.2); White Blood Count 6.2 K/mm3 (4.4-11.0)
[2023-12-18 09:27] LABS: AST(SGOT) 16 U/L (15-37); Alanine Aminotransfer ALT/SGPT 15 U/L (16-61); Albumin, Serum 3.2 g/dL (3.2-5.0); Alkaline Phosphatase 102 U/L (45-117); Bilirubin, Direct 0.24 mg/dL (0.00-0.30); Globulin 3.6 g/dL (2.2-4.2); Protein, Total 6.8 g/dL (6.4-8.2)
[2023-12-18 09:31] LABS: ALB/GLOB Ratio 0.8 RATIO (0.9-2.4); AST(SGOT) 15 U/L (15-37); Alanine Aminotransfer ALT/SGPT 14 U/L (16-61); Albumin, Serum 3.1 g/dL (3.2-5.0); Alkaline Phosphatase 100 U/L (45-117); Anion Gap 2 (5-15); BUN 16 mg/dL (7-18); BUN/Creat Ratio 15.7 RATIO (10-20); CPK Total, Creatine Kinase 77 U/L (39-308); Calcium,Total 8.7 mg/dL (8.5-10.1); Chloride 108 mmol/L (98-107); Cholesterol 107 mg/dL (200); Creatinine, Serum 1.02 mg/dL (0.70-1.30); EST Glomerular Filtration Rate 75 mL/min (>60); Est Glom Filt Rate - Afr Amer 91 mL/min (>60); Globulin 3.8 g/dL (2.2-4.2); Glucose 95 mg/dL (74-106); High Density Lipoprotein 46 mg/dL; Protein, Total 6.9 g/dL (6.4-8.2); Sodium Level 138 mmol/L (136-145); Thyroid Stim Hormone (TSH) 5.42 uIU/mL (0.358-3.74); Triglycerides 79 mg/dL; Very Low Density Lipoprotein 16 mg/dL (5-40)
== END | disposition home or self-care (01) ==
LOC: LAB 08:21
PROVIDERS: Physician Assistant Medical; PCP Family Medicine; Referring Provider Internal Medicine Cardiovascular Disease; Visit Provider Internal Medicine Cardiovascular Disease
DX: I10 Essential (primary) hypertension (principal); G40.909 Epilepsy, unspecified, not intractable, without status epilepticus; I25.10 Atherosclerotic heart disease of native coronary artery without angina pectoris; R53.83 Other fatigue; E78.00 Pure hypercholesterolemia, unspecified; E03.9 Hypothyroidism, unspecified
CPT/HCPCS: 36415; 80053; 80061; 80076; 82550; 84443; 85027

== ENCOUNTER 2023-12-29 18:40 | Inpatient (IN) | payer MEDICARE, SELFPAY ==
[2021-12-29 08:18] VITALS: BMI 25.2
[2023-12-29 18:40] VITALS: BP 150/85; PULSE 103; RESP 26; TEMP 36.4; O2SAT 96; BMI 25.4
[2023-12-29 19:55] LABS: Absolute Lymphocyte Count 2.11 X10^3/uL (0.83-4.51); Absolute Neutrophil Count 7.9 X10^3/uL (2.0-7.7); Basophil% 0.9 % (0-1); Eosinophil# 0.29 X10^3/uL; Eosinophils% 2.6 % (0-5); Hematocrit 37.5 % (40-54); Hemoglobin 12.2 g/dL (13.0-16.5); Lymphocyte # 2.11 X10^3/ul (0.83-4.51); Mean Corp Hgb Conc 32.5 g/dL (32-36); Mean Corpuscular Hgb 29.2 pg (27.0-32.0); Mean Corpuscular Volume 89.7 fL (80-94); Mean Platelet Vol. 11.1 fl (6.2-12.0); Monocyte# 0.68 X10^3/uL; Monocyte% 6.1 % (0-10); NRBC Flagged by Analyzer 0 % (0-5); Neutrophil # 7.85 X10^3/uL (2.7-7.7); Neutrophil % 70.9 % (47-70); Platelet Count 273 K/mm3 (150-450); RBC Distribution Width CV 13.9 % (11.6-14.6); RBC Distribution Width SD 45.4 fl (35.1-43.9); Red Blood Count 4.18 M/mm3 (4.6-6.2); White Blood Count 11.1 K/mm3 (4.4-11.0)
[2023-12-29 20:04] LABS: International Normalized Ratio 1.2; Partial Thromboplast Time 28.8 Seconds (24.1-36.2); Prothrombin Time (Protime)PT. 15.5 SECONDS (11.7-14.9)
--- NOTE | 2023-12-29 20:05 | EDS_ITS ---
HPI HPI - GI History of Present Illness Chief Complaint: GI Bleed Informant: patient Narrative Narrative: Patient is a 78-year-old male with history of coronary artery disease, seizures (on Keppra) and hypertension presenting with blood in his stools with his bowel movements. Patient states he had 5 bowel movements today which is abnormal for him. He states the first 3 had a very dark blood in them and the fourth stool had more formed stool and just red blood in the fifth 1 also had more stool and just red blood. He has had crampy abdominal pain with his bowel movements. Denies any other abdominal pains. Denies any chest pain or difficulty breathing. Does feel a little lightheaded. Denies any associated nausea or vomiting. Has a very remote history of a stomach ulcer and states he gets heartburn every once in a while. Does not take any antacids. Is on 81 mg aspirin daily but no other blood thinners. Had a colonoscopy and EGD about a year ago and thinks everything was normal. Abdominal surgery includes umbilical hernia repair and appendectomy. Patient states he had similar bleeding once before and ended up being a hemorrhoid that was bleeding. No other complaints or concerns reported at this time. [facility] Medical History Dyslipidemia CAD (coronary artery disease) Deafness in right ear Pleural effusion Bilateral carotid artery stenosis Seizure disorder Hypothyroidism History of left heart catheterization (LHC) (~08/31/21) Atherosclerotic heart disease of [place] coronary artery without angina pectoris HTN (hypertension) Non-ST elevated myocardial infarction (non-STEMI) History of intracranial hemorrhage Cerebral arteriovenous malformation Seizure Home Medications ?Medication ?Instructions ?Recorded ?Last Taken ?Type levetiracetam 500 mg tablet 500 mg PO BID 02/15/16 08/11/16 History levothyroxine 100 mcg tablet 100 mcg PO DAILY 06/05/21 Unknown History (Euthyrox) acetaminophen 325 mg tablet 650 mg PO Q4H PRN fever or pain 09/13/21 Unknown History aspirin 81 mg tablet,delayed 81 mg PO DAILY 09/13/21 Unknown History release (Adult Low Dose Aspirin) atorvastatin 40 mg tablet 40 mg PO QHS 09/13/21 Unknown History clopidogrel 75 mg tablet 75 mg PO DAILY 09/13/21 Unknown History Handicap placard #1 ea 06/14/22 Unknown Rx metoprolol tartrate 25 mg tablet 50 mg PO BID 12/29/23 Unknown History Allergy/AdvReac Type Severity Reaction Status Date / Time No Known Allergies Allergy Verified 12/29/23 18:40 Family History Mother CAD (coronary artery disease) Father Carotid artery disease Surgical History History of elbow surgery History of carpal tunnel surgery History of back surgery History of coronary artery bypass surgery (~09/02/21) Hx of brain surgery Social History household members: spouse Smoking Status: Former smoker alcohol intake: never substance use type: does not use caffeine: No ROS ROS ED Constitutional Constitutional ED: Reports other Details: Lightheaded ; Denies chills or fever(s) Cardiovascular Cardiovascular: Denies chest pain Respiratory/Chest Respiratory/Chest: Denies cough or dyspnea Gastrointestinal Gastrointestinal: Reports abdominal pain, diarrhea and melena; Denies nausea or vomiting Musculoskeletal Musculoskeletal: Denies arthralgias, back pain or myalgias Integumentary Denies rash Neurologic Neurologic: Denies headache(s) Hematologic/Lymphatic Hematologic/Lymphatic: Denies easy bleeding or easy bruising EXAM Physical Exam Const Vital Signs: 12/29/23 18:40 12/29/23 20:40 12/29/23 21:47 Temperature 97.5 F L 97.2 F L Temperature Source Temporal Pulse Rate 103 H 77 78 Respiratory Rate 26 H 18 19 H Blood Pressure 150/85 H 119/72 119/73 Blood Pressure Mean 106 87 88 Pulse Ox 96 99 99 Oxygen Delivery Method Room Air Positive well nourished and well developed General Appearance ED: well developed and NAD; Negative for pallor HEENT Reports moist mucous membranes Eyes PERRL and EOMs intact bilaterally General Eye ED: Negative for pale conjunctiva Neck supple Resp normal respiratory effort and clear to auscultation bilaterally Cardio regular rate and regular rhythm GI non-tender and non-distended GI Narrative: Patient has some bright red blood on rectal exam. No obvious hemorrhoid. No active or brisk bleeding appreciated Extremity General Extremety ED: Negative for edema General Extremity: Negative for edema Neuro Sensorium / Orientation: alert, oriented to person, oriented to place and oriented to time Motor Exam: Negative for general weakness Psych mental status grossly normal and thought process normal Skin General Skin Exam: Negative for jaundice or pallor MDM MDM MDM Narrative Medical decision making narrative: Patient is evaluated for multiple signs of what sounds like melanotic stool today. On rectal exam he does have some obvious bright red blood. Patient has a very mild leukocytosis 11.1 which is nonspecific. His hemoglobin is 12.2 however it was 13.2 11 days ago. Patient was tachycardic upon arrival but this normalizes in the ER. He has reported some lightheadedness. Lab work otherwise normal. His BUN is mildly elevated at 22 which could be indicative of an upper GI bleed. Type and screen is sent. Patient does have another melanotic bowel movement while in the emergency room and states he felt like he was going to pass out after that. He is now agreeable with admission. Case discussed with Dr. Torres, GI as well as hospitalist. Patient started on IV fluids and Protonix. Will be kept n.p.o. per request of GI. Patient agreeable this plan of care. Patient is abdomen soft and nontender I do not he requires any abdominal imaging at this time. He is otherwise well-appearing and stable for PCU at this time. History & Record Review Additional record(s) reviewed:: Prior labs Lab Data Attestation: I reviewed the patient's lab results. Labs: Laboratory Results - last 24 hr 12/29/23 12/29/23 18:55 19:40 WBC 11.1 H RBC 4.18 L Hgb 12.2 L Hct 37.5 L MCV 89.7 MCH 29.2 MCHC 32.5 RDW Std Deviation 45.4 H RDW Coeff of Víctor 13.9 Plt Count 273 MPV 11.1 Immature Gran % (Auto) 0.500 Neut % (Auto) 70.9 H Lymph % (Auto) 19.0 [place] % (Auto) 6.1 Eos % (Auto) 2.6 Baso % (Auto) 0.9 Absolute Neuts (auto) 7.9 H Absolute Lymphs (auto) 2.11 Nucleated RBC % 0 PT 15.5 H INR 1.2 APTT 28.8 Sodium 141 Potassium 3.8 Chloride 108 H Carbon Dioxide 26.0 Anion Gap 7 BUN 22 H Creatinine 1.28 Estim Creat Clear Calc 48.33 Est GFR (MDRD) Af Amer 70 Est GFR (MDRD) Non-Af 58 L BUN/Creatinine Ratio 17.2 Glucose 192 H Lactic Acid 1.4 Calcium 8.9 Total Bilirubin 0.70 AST 17 ALT 14 L Alkaline Phosphatase 95 Total Protein 6.8 Albumin 3.2 Globulin 3.6 Albumin/Globulin Ratio 0.9 Blood Type O POSITIVE Antibody Screen NEGATIVE Management Discussion w/another healthcare provider: Hospitalist and Activity Leader Discharge Plan Triage Chief Complaint: GI Bleed ED Provider: Danielle Dykes Dx/Rx/DC Orders Clinical Impression: Acute upper GI bleed, Near syncope Prescriptions: No Action (DME) Handicap placjayson See Rx Instructions .Route .MEDSUPPLY Qty: 1 0RF Rx Instructions: Expiration date: unlimited levetiracetam 500 MG tablet 500 mg PO BID levothyroxine [Euthyrox] 100 mcg tablet 100 mcg PO DAILY metoprolol tartrate 25 mg tablet 50 mg PO BID acetaminophen 325 mg tablet 650 mg PO Q4H PRN (Reason: fever or pain) clopidogrel 75 mg tablet 75 mg PO DAILY atorvastatin 40 mg tablet 40 mg PO QHS aspirin [Adult Low Dose Aspirin] 81 mg tablet,delayed release (DR/EC) 81 mg PO DAILY Primary Care Provider: Chrissy Elizabeth Referrals: Chrissy Elizabeth MD [Primary Care Provider] - Print Language: Spanish Disposition Disposition: Acute Care Hospital [facility]
[2023-12-29 20:13] LABS: ALB/GLOB Ratio 0.9 RATIO (0.9-2.4); AST(SGOT) 17 U/L (15-37); Alanine Aminotransfer ALT/SGPT 14 U/L (16-61); Albumin, Serum 3.2 g/dL (3.2-5.0); Alkaline Phosphatase 95 U/L (45-117); Anion Gap 7 (5-15); BUN 22 mg/dL (7-18); BUN/Creat Ratio 17.2 RATIO (10-20); Calcium,Total 8.9 mg/dL (8.5-10.1); Chloride 108 mmol/L (98-107); Creatinine, Serum 1.28 mg/dL (0.70-1.30); EST Glomerular Filtration Rate 58 mL/min (>60); Est Glom Filt Rate - Afr Amer 70 mL/min (>60); Estimated Creatinine Clearance 48.33 ml/min; Globulin 3.6 g/dL (2.2-4.2); Glucose 192 mg/dL (74-106); Potassium 3.8 mmol/L (3.5-5.1); Protein, Total 6.8 g/dL (6.4-8.2); Sodium Level 141 mmol/L (136-145)
[2023-12-29 20:40] VITALS: BP 119/72; PULSE 77; RESP 18; O2SAT 99
[2023-12-29 20:48] LABS: Lactic Acid 1.4 mmol/L (0.4-1.9)
--- NOTE | 2023-12-29 21:43 | PCM.HP.STD ---
[facility] - General General Date of Admission: 12/29/23 Date of Service: 12/29/23 Chief Complaint: Melanotic Stools x 6 Today. [facility] Narrative DERICK ROGER, is a 78 M with a past medical history of essential hypertension, hypothyroidism, former tobacco abuse, CAD; s/p NSTEMI and subsequent CABG x 3 (2021); on chronic BASA and Plavix, history of bilateral carotid stenosis, history of AVM with ICH (~2010); with subsequent craniotomy, seizure disorder; on Keppra, deaf in Right ear, history of pleural effusion, OA, history of umbilical hernia repair, history of appendectomy, history of LGIB attributed to hemorrhoids and GERD; with a remote history of PUD (~1983) who presents to [facility] ER complaining of melanotic stools x 6 today. Mr. Roger reports his symptoms began ~10:30 AM when he noted very dark bloody stools which he states in abnormal for him. He then went on to have 3 more dark bloody stools followed by a more formed 4th and 5th BM's that had red blood followed by a 6th dark bloody BM in the ER. He also admits to abdominal pain that is cramping, generalized and made worse by bowel movements and were not improved by anything. He admits to associated lightheadedness and GERD but he denies related fever, chills, nausea, vomiting, chest pain or SOB. In the ER he was diagnosed with GI Bleed due to suspected recurrence of PUD causing melanotic stools likely due to Adverse Drug Reaction to combination of unopposed BASA and Plavix with hemoglobin of 12.2 g/dL present on admission and he was then admitted to the PCU for ongoing care for a stay that is expected to extend beyond 2 midnights. [facility] Medical History (Updated 12/29/23 @ 22:[address] Arsalan Delgadillo, DO) History of intracranial hemorrhage Cerebral arteriovenous malformation Dyslipidemia CAD (coronary artery disease) Deafness in right ear Pleural effusion Bilateral carotid artery stenosis Seizure disorder Hypothyroidism History of left heart catheterization (LHC) (~08/31/21) Atherosclerotic heart disease of [place] coronary artery without angina pectoris HTN (hypertension) Non-ST elevated myocardial infarction (non-STEMI) Seizure Home Medications ?Medication ?Instructions ?Recorded ?Last Taken ?Type levetiracetam 500 mg tablet 500 mg PO BID 02/15/16 08/11/16 History levothyroxine 100 mcg tablet 100 mcg PO DAILY 06/05/21 Unknown History (Euthyrox) acetaminophen 325 mg tablet 650 mg PO Q4H PRN fever or pain 09/13/21 Unknown History aspirin 81 mg tablet,delayed 81 mg PO DAILY 09/13/21 Unknown History release (Adult Low Dose Aspirin) atorvastatin 40 mg tablet 40 mg PO QHS 09/13/21 Unknown History clopidogrel 75 mg tablet 75 mg PO DAILY 09/13/21 Unknown History Handicap placard #1 ea 11/23/21 Unknown Rx metoprolol tartrate 25 mg tablet 50 mg PO BID 12/29/23 Unknown History Allergy/AdvReac Type Severity Reaction Status Date / Time No Known Allergies Allergy Verified 12/29/23 18:40 Family History Mother CAD (coronary artery disease) Father Carotid artery disease Surgical History History of elbow surgery History of carpal tunnel surgery History of back surgery History of coronary artery bypass surgery (~09/02/21) Hx of brain surgery Social History household members: spouse Smoking Status: Former smoker alcohol intake: never substance use type: does not use caffeine: No ROS ROS Narrative Review of systems: Constitutional: Patient denies fever or chills. Eyes: Patient denies changes in vision or discharge from eyes. ENT: Patient denies runny nose, sore throat or ear pain. Resp: Patient denies SOB or cough. CV: Patient denies chest pain, palpitations or heart racing. GI: Patient admits to melanotic stools with cramping abdominal pain plus GERD as per HPI. : Patient denies dysuria or hematuria. MSK: Patient denies arthralgias or myalgias. Skin: Patient denies abscess, rash or jaundice. Psych: Patient denies symptoms of uncontrolled depression or anxiety. Neuro: Patient denies headache, paresthesias or focal neurologic deficits. Allergy: Patient denies lip swelling, tongue swelling or urticaria. Endocrine: Patient denies polyuria, polydipsia and polyphagia. Hematology: Patient admits to 6 dark bloody BM's today. 14 point ROS otherwise negative except for positives noted above in HPI. Vital Signs Vital Signs Vital Signs: 12/29/23 18:40 12/29/23 20:40 Temperature 97.5 F L Temperature Source Temporal Pulse Rate 103 H 77 Respiratory Rate 26 H 18 Blood Pressure 150/85 H 119/72 Blood Pressure Mean 106 87 Pulse Ox 96 99 Oxygen Delivery Method Room Air Weight Weight: 172 lb 6.4 oz Body Mass Index (BMI) 25.4 Physical Exam Const alert, oriented x3, no apparent distress and average body habitus General Appearance: cooperative HEENT normocephalic, head/scalp atraumatic, hearing grossly normal bilaterally and moist oral mucous membranes Eyes PERRL and EOMs intact bilaterally Neck no lymphadenopathy and supple Resp normal respiratory effort, no retractions, no use of accessory muscles and clear to auscultation bilaterally Cardio regular rate and regular rhythm GI normal to inspection, nondistended, normoactive bowel sounds, soft to palpation, non-tender and non-distended Extremity normal to inspection, full ROM and no clubbing, cyanosis or edema Skin Skin Narrative: Patient has no evidence of abscess, jaundice or rash. Neuro oriented x3, CN's II-XII intact bilaterally, moves all extremities and no focal motor deficits Sensorium / Orientation: awake, alert, oriented to person, oriented to place and oriented to time Speech: speech normal Psych affect normal Results Medical Records Data Attestation: I reviewed the patient's medical records Lab / Micro Data Attestation: I reviewed the patient's lab results. 12/29/23 18:55 12/29/23 18:55 Labs: Laboratory Results - last 24 hr 12/29/23 18:55: WBC 11.1 H, RBC 4.18 L, Hgb 12.2 L, Hct 37.5 L, MCV 89.7, MCH 29.2, MCHC 32.5, RDW Std Deviation 45.4 H, RDW Coeff of Víctor 13.9, Plt Count 273, MPV 11.1, Immature Gran % (Auto) 0.500, Neut % (Auto) 70.9 H, Lymph % (Auto) 19.0, [place] % (Auto) 6.1, Eos % (Auto) 2.6, Baso % (Auto) 0.9, Absolute Neuts (auto) 7.9 H, Absolute Lymphs (auto) 2.11, Nucleated RBC % 0, PT 15.5 H, INR 1.2, APTT 28.8, Sodium 141, Potassium 3.8, Chloride 108 H, Carbon Dioxide 26.0, Anion Gap 7, BUN 22 H, Creatinine 1.28, Estim Creat Clear Calc 48.33, Est GFR (MDRD) Af Amer 70, Est GFR (MDRD) Non-Af 58 L, BUN/Creatinine Ratio 17.2, Glucose 192 H, Calcium 8.9, Total Bilirubin 0.70, AST 17, ALT 14 L, Alkaline Phosphatase 95, Total Protein 6.8, Albumin 3.2, Globulin 3.6, Albumin/Globulin Ratio 0.9, Blood Type O POSITIVE, Antibody Screen NEGATIVE 12/29/23 19:40: Lactic Acid 1.4 Assessment & Plan Assessment/Plan (1) Acute upper GI bleed: (2) Adverse drug reaction: QUALIFIERS: Encounter type: initial encounter Qualified Code(s): T50.905A - Adverse effect of unspecified drugs, medicaments and biological substances, initial encounter (3) GERD (gastroesophageal reflux disease): QUALIFIERS: Esophagitis presence: esophagitis presence not specified Qualified Code(s): K21.9 - Gastro-esophageal reflux disease without esophagitis (4) History of peptic ulcer disease: (5) CAD (coronary artery disease): QUALIFIERS: Associated angina: unspecified whether angina present Coronary Disease-Associated Artery/Lesion type: [place] artery [place] vs. transplanted heart: [place] heart Qualified Code(s): I25.10 - Atherosclerotic heart disease of [place] coronary artery without angina pectoris (6) History of coronary artery bypass surgery: (7) Bilateral carotid artery stenosis: (8) History of intracranial hemorrhage: (9) History of arteriovenous malformation (AVM): (10) Seizure disorder: PLAN: Plan 1. GI Bleed due to suspected recurrence of PUD - Admit to PCU and volume resuscitate. Type & Screen blood and transfuse for hemoglobin < 7 g/dL. Continue IV Protonix and keep strict NPO. Finally, we will consult Dr. Torres of gastroenterology to see this patient on-rounds in the AM for further recommendations regarding EGD this admission with help appreciated in advance. 2. Adverse Drug Reaction to combination of unopposed BASA and Plavix likely causing #1 - Hold these agents for now and continue GI prophylaxis with PPI and Carafate after EGD to minimize risk of recurrence. 3. GERD; with a remote history of PUD and history of LGIB attributed to hemorrhoids complicating #1 & #2 - Noted. Patient would likely also benefit from colonoscopy this admission to complete his assessment. 4. CAD; s/p NSTEMI and subsequent CABG x 3 (2021) compounding #1 - #3 - Stable. Serialize troponin. Hold BASA and Plavix until sources of bleeding identified and neutralized. 5. History of bilateral carotid stenosis - Noted. 6. History of AVM with ICH; with subsequent craniotomy - Noted. 7. Seizure disorder; on Keppra - Resume Keppra IV at same dose. 8. Essential hypertension - Hold scheduled antihypertensives until sources of bleeding outlined in #1 have been identified and neutralized. 9. Hypothyroidism - Continue Synthroid IV plus check TSH. 10. Former tobacco abuse - Noted. 11. Deaf in Right ear - Noted. 12. History of pleural effusion - Noted. 13. History of umbilical hernia repair - Noted. 14. History of appendectomy - Noted. 15. OA - Stable. 16. DVT prophylaxis - SCD's only with recent GI bleed. Total time: Approximately 75 minutes. Charges/Coding Visit Charges Inpatient E&M: 35488 Init Hosp L3
[2023-12-29] MEDS: 0.9% Normal Saline (1000mL) 1,000 ML 999 ML IV (21:45)
[2023-12-29 21:47] VITALS: BP 119/73; PULSE 78; RESP 19; TEMP 36.2; O2SAT 99
[2023-12-29] MEDS: Pantoprazole Sodium 80 MG in 0.9% Normal Saline (50mL Bag) 15 ML 420 MG IV BOLUS (21:52)
[2023-12-29 22:00] VITALS: BP 113/70; PULSE 70; RESP 18; O2SAT 99
[2023-12-29 22:54] VITALS: PULSE 93; BMI 25.2
[2023-12-29] MEDS: levETIRAcetam IV 500 MG in 0.9% Normal Saline (100mL Bag) 100 ML 420 MG IV (23:28)
[2023-12-29] MEDS: Pantoprazole Sodium 80 MG in 0.9% Normal Saline (100mL Bag) 80 ML 10 MG CONT INF (23:29)
[2023-12-29 23:30] VITALS: BP 127/61; PULSE 72; RESP 20; TEMP 36.3; O2SAT 99
[2023-12-29] MEDS: 0.9% Normal Saline (1000mL) 1,000 ML 70 ML IV (23:33)
[2023-12-29] MEDS: 0.9% Normal Saline (250mL Bag) 250 ML 15 ML IV (23:34)
[2023-12-29 23:49] LABS: Troponin-I HS 10 pg/mL (3.0-78.0)
[2023-12-30] VITALS (7 sets, daily range): BP systolic 111–124; BP diastolic 60–78; PULSE 77–83; RESP 18–20; TEMP 36.1–36.6; O2SAT 97–100; BMI 25.2
--- NOTE | 2023-12-30 03:39 | NURSING ---
RN called to bedside by [employer]ORCY[employer] SALES [employer]OCIATE to check on the patient on the toilet, as he feels nauseous and is sweating a lot. Upon arriving, the patient appeared diaphoretic and labored, tachypneic and tripoding. The Vitals taken before attempting to ambulate the patient back to bed were within normal limits. Patient had bloody BM with 300cc output immediately before onset of symptoms. Call placed to Dr. Parker; orders to keep patient on complete bedrest and a STAT CBC was obtained to check for hemoglobin drop from initial 12.2 drawn on admission. Will continue to monitor.
[2023-12-30 04:31] LABS: Absolute Lymphocyte Count 1.54 X10^3/uL (0.83-4.51); Absolute Neutrophil Count 6.5 X10^3/uL (2.0-7.7); Basophil# 0.06 X10^3/uL; Basophil% 0.7 % (0-1); Eosinophil# 0.19 X10^3/uL; Eosinophils% 2.1 % (0-5); Hematocrit 30.6 % (40-54); Hemoglobin 9.9 g/dL (13.0-16.5); Lymphocyte # 1.54 X10^3/ul (0.83-4.51); Lymphocyte % 17.4 % (19-41); Mean Corp Hgb Conc 32.4 g/dL (32-36); Mean Corpuscular Volume 89.7 fL (80-94); Mean Platelet Vol. 10.9 fl (6.2-12.0); Monocyte# 0.53 X10^3/uL; NRBC Flagged by Analyzer 0 % (0-5); Neutrophil # 6.47 X10^3/uL (2.7-7.7); Platelet Count 229 K/mm3 (150-450); RBC Distribution Width CV 13.9 % (11.6-14.6); RBC Distribution Width SD 45.5 fl (35.1-43.9); Red Blood Count 3.41 M/mm3 (4.6-6.2); White Blood Count 8.9 K/mm3 (4.4-11.0)
[2023-12-30 07:12] LABS: ALB/GLOB Ratio 0.9 RATIO (0.9-2.4); AST(SGOT) 12 U/L (15-37); Alanine Aminotransfer ALT/SGPT 10 U/L (16-61); Albumin, Serum 2.6 g/dL (3.2-5.0); Alkaline Phosphatase 71 U/L (45-117); Anion Gap 6 (5-15); BUN 20 mg/dL (7-18); BUN/Creat Ratio 19.6 RATIO (10-20); Calcium,Total 8.5 mg/dL (8.5-10.1); Chloride 113 mmol/L (98-107); Creatinine, Serum 1.02 mg/dL (0.70-1.30); EST Glomerular Filtration Rate 75 mL/min (>60); Est Glom Filt Rate - Afr Amer 91 mL/min (>60); Estimated Creatinine Clearance 60.65 ml/min; Globulin 2.8 g/dL (2.2-4.2); Glucose 143 mg/dL (74-106); Phosphorus 2.5 mg/dL (2.5-4.9); Potassium 3.8 mmol/L (3.5-5.1); Protein, Total 5.4 g/dL (6.4-8.2); Sodium Level 140 mmol/L (136-145)
[2023-12-30] MEDS: levETIRAcetam IV 500 MG in 0.9% Normal Saline (100mL Bag) 100 ML 420 MG IV ×2 (08:34→21:17)
[2023-12-30] MEDS: Pantoprazole Sodium 80 MG in 0.9% Normal Saline (100mL Bag) 80 ML 10 MG CONT INF ×2 (08:34→16:36)
--- NOTE | 2023-12-30 09:34 | PN.HOSP_ITS ---
Reason for Visit Reason for Visit: Diagnoses Epilepsy, unspecified, not intractable, without status epilepticus (12/29/23) Atherosclerotic heart disease of [place] coronary artery without angina pectoris (12/29/23) Occlusion and stenosis of bilateral carotid arteries (12/29/23) Gastro-esophageal reflux disease without esophagitis (12/29/23) Gastrointestinal hemorrhage, unspecified (12/29/23) Adverse effect of unspecified drugs, medicaments and biological substances, initial encounter (12/29/23) Personal history of other diseases of the circulatory system (12/29/23) Personal history of peptic ulcer disease (12/29/23) Personal history of (corrected) congenital malformations of heart and circulatory system (12/29/23) Presence of aortocoronary bypass graft (12/29/23) Subjective Subjective Patient was seen and examined today, he came in yesterday due to dark bloody stools that started at 10:30 AM yesterday. Patient's hemoglobin on presentation to the ER was 12.2, hemoglobin this morning was 9.9. I talked with gastroenterology this morning, the plan is for him to undergo an EGD today. Patient remains on IV Protonix Objective Data Objective Data Vital Signs: Vital Signs Temp Pulse Resp BP Pulse Ox O2 Del Method 97.8 F 80 18 124/78 H 98 Room Air 12/30/23 08:55 12/30/23 08:55 12/30/23 08:55 12/30/23 08:55 12/30/23 08:55 12/30/23 08:55 Oxygen Delivery Method Room Air Weight: 77.7 kg Body Mass Index (BMI) 25.2 Intake & Output: Intake and Output for Last 24 Hours 12/28/23 12/29/23 12/30/23 23:59 23:59 23:59 Intake Total 1335.83 / 1335.83 Output Total 450 / 450 Balance 885.83 / 885.83 Lab / Micro Data 12/30/23 04:12 12/30/23 06:10 Labs: Laboratory Results - last 24 hr 12/29/23 18:55: WBC 11.1 H, RBC 4.18 L, Hgb 12.2 L, Hct 37.5 L, MCV 89.7, MCH 29.2, MCHC 32.5, RDW Std Deviation 45.4 H, RDW Coeff of Víctor 13.9, Plt Count 273, MPV 11.1, Immature Gran % (Auto) 0.500, Neut % (Auto) 70.9 H, Lymph % (Auto) 19.0, [place] % (Auto) 6.1, Eos % (Auto) 2.6, Baso % (Auto) 0.9, Absolute Neuts (auto) 7.9 H, Absolute Lymphs (auto) 2.11, Nucleated RBC % 0, PT 15.5 H, INR 1.2, APTT 28.8, Sodium 141, Potassium 3.8, Chloride 108 H, Carbon Dioxide 26.0, Anion Gap 7, BUN 22 H, Creatinine 1.28, Estim Creat Clear Calc 48.33, Est GFR (MDRD) Af Amer 70, Est GFR (MDRD) Non-Af 58 L, BUN/Creatinine Ratio 17.2, G lucose 192 H, Calcium 8.9, Total Bilirubin 0.70, AST 17, ALT 14 L, Alkaline Phosphatase 95, Total Protein 6.8, Albumin 3.2, Globulin 3.6, Albumin/Globulin Ratio 0.9, TSH 2.90, Blood Type O POSITIVE, Antibody Screen NEGATIVE 12/29/23 19:40: Lactic Acid 1.4 12/29/23 23:15: Troponin I High Sens 10 12/30/23 04:12: WBC 8.9, RBC 3.41 L, Hgb 9.9 L, Hct 30.6 L, MCV 89.7, MCH 29.0, MCHC 32.4, RDW Std Deviation 45.5 H, RDW Coeff of Víctor 13.9, Plt Count 229, MPV 10.9, Immature Gran % (Auto) 0.800, Neut % (Auto) 73.0 H, Lymph % (Auto) 17.4 L, [place] % (Auto) 6.0, Eos % (Auto) 2.1, Baso % (Auto) 0.7, Absolute Neuts (auto) 6.5, Absolute Lymphs (auto) 1.54, Nucleated RBC % 0 12/30/23 06:10: Sodium 140, Potassium 3.8, Chloride 113 H, Carbon Dioxide 21.0, Anion Gap 6, BUN 20 H, Creatinine 1.02, Estim Creat Clear Calc 60.65, Est GFR (MDRD) Af Amer 91, Est GFR (MDRD) Non-Af 75, BUN/Creatinine Ratio 19.6, Glucose 143 H, Calcium 8.5, Phosphorus 2.5, Magnesium 2.0, Total Bilirubin 0.70, AST 12 L, ALT 10 L, Alkaline Phosphatase 71, Total Protein 5.4 L, Albumin 2.6 L, Globulin 2.8, Albumin/Globulin Ratio 0.9 Physical Exam Const alert, oriented x3, no apparent distress and healthy appearing General Appearance: cooperative, well kempt and well developed Orientation / Consciousness: awake, oriented to person, oriented to place and oriented to time HEENT normocephalic, head/scalp atraumatic and moist oral mucous membranes Eyes PERRL, EOMs intact bilaterally and conjunctivae normal Neck supple, no JVD, thyroid normal and no carotid bruits General: trachea midline Resp normal respiratory effort, no retractions, no use of accessory muscles and clear to auscultation bilaterally Auscultation: Negative for rales, rhonchi or wheezes Cardio regular rate, regular rhythm, S1 normal heart sound, S2 normal heart sound, no murmurs, no rub and no gallops GI normal to inspection, nondistended, normoactive bowel sounds, soft to palpation, non-tender and non-distended Extremity no clubbing, cyanosis or edema Skin no rashes or lesions noted General Skin Exam: no breakdown Neuro oriented x3, CN's II-XII intact bilaterally, no focal motor deficits and no sensory deficits noted Sensorium / Orientation: awake and alert Speech: speech normal Psych affect normal Assessment & Plan Assessment/Plan (1) GI bleed: PLAN: Plan 1. Acute GI bleed-unclear whether it is an upper GI versus lower GI bleed at this time, patient will undergo upper endoscopy today, it may be necessary to perform a colonoscopy on the patient. #2 coronary artery disease-patient's Plavix and aspirin are being held right now, patient stable #3 hyperlipidemia-patient is on a statin #4 seizure disorder-patient remains on Keppra #5 acute blood loss anemia secondary to acute GI bleed-patient does not require transfusion at this point, hemoglobins will be monitored #6 hypothyroidism-patient remains on Synthroid Total clinical time spent by myself addressing the patient's medical issues, reviewing all of his data, and collaborating with the patient's care team: 35 minutes Charges/Coding Visit Charges Inpatient E&M: 76073 Subs Hosp L2
--- NOTE | 2023-12-30 10:10 | CASEMGMT ---
HECTOR BENITO Assessment: Face to Face with pt for initial transition planning/care coordination assessment. RN THONG introduced self and role at [facility], pt voices understanding and consents to assessment. Pt is A&O x4 and answers all questions appropriately at this time. Pt lying in bed on RA in no distress on BR. Care providers, pharmacy, and demographics verified/updated. Admitting Dx:UGIB with melanotic stools and adverse drug rxn PCP:Glenn Specialists:OMAR, cardio Preferred Pharmacy:[facility] Insurance:[employer] [facility] Prescription Benefit: yes LNOK:Ceci Amor, ; Julia Homero, dtr Living Arrangements: Pt lives with in a single story home with 1 step to enter. Pt reports he is I in ADLs and denies concerns at home. Transportation: Pt drives self and denies concerns with transportation. DME:w/c, walker, BSC- Denies use of AD. HHC/SNF:Pt denies. Pt states no concerns with going home at time of dc. Pt states no further concerns/needs. CM to follow. Advised pt to ask CM if any further question/concerns/needs arise, voices understanding. Pt Goal:Home Plan:Home pending course of hospitalization. Pt is currently on bedrest.
--- NOTE | 2023-12-30 10:48 | CON.PCM.GI_ITS ---
HPI Consult Data Date of Consult: 12/30/23 HPI Narrative Reason for Consultation: GI bleed HPI Narrative: DERICK ROGER, is a 78-year-old male with history of coronary artery disease, seizures (on Keppra) and hypertension presenting with blood in his stools with his bowel movements. Patient states he had 5 bowel movements today which is abnormal for him. He states the first 3 had a very dark blood in them and the fourth stool had more formed stool and just red blood in the fifth 1 also had more stool and just red blood. He has had crampy abdominal pain with his bowel movements. He denies any other abdominal pains. Denies any chest pain or difficulty breathing. Does feel a little lightheaded. Denies any associated nausea or vomiting. Has a very remote history of a stomach ulcer and states he gets heartburn every once in a while. Does not take any antacids. Is on 81 mg aspirin daily but no other blood thinners. He had a colonoscopy and EGD about a year ago and thinks everything was normal. Abdominal surgery includes umbilical hernia repair and appendectomy. Patient states he had similar bleeding once before and ended up being a hemorrhoid that was bleeding. No other complaints or concerns reported at this time. His hemoglobin on admission was 12.2. He did have a mildly elevated BUN/creatinine ratio of 22:1 0.28. His hemoglobin is down to 9.9 this morning. [facility] Medical History (Updated 12/30/23 @ 09:[address] Ankit Vilchis, DO) History of intracranial hemorrhage Cerebral arteriovenous malformation Dyslipidemia CAD (coronary artery disease) Deafness in right ear Pleural effusion Bilateral carotid artery stenosis Seizure disorder Hypothyroidism History of left heart catheterization (LHC) (~08/31/21) Atherosclerotic heart disease of [place] coronary artery without angina pectoris HTN (hypertension) Non-ST elevated myocardial infarction (non-STEMI) Seizure Home Medications ?Medication ?Instructions ?Recorded ?Last Taken ?Type levetiracetam 500 mg tablet 500 mg PO BID 02/15/16 08/11/16 History levothyroxine 100 mcg tablet 100 mcg PO DAILY 06/05/21 Unknown History (Euthyrox) acetaminophen 325 mg tablet 650 mg PO Q4H PRN fever or pain 09/13/21 Unknown History aspirin 81 mg tablet,delayed 81 mg PO DAILY 09/13/21 Unknown History release (Adult Low Dose Aspirin) atorvastatin 40 mg tablet 40 mg PO QHS 09/13/21 Unknown History clopidogrel 75 mg tablet 75 mg PO DAILY 09/13/21 Unknown History Handicap placard #1 ea 11/23/21 Unknown Rx metoprolol tartrate 25 mg tablet 50 mg PO BID 12/29/23 Unknown History Allergy/AdvReac Type Severity Reaction Status Date / Time No Known Allergies Allergy Verified 12/29/23 18:40 Family History Mother CAD (coronary artery disease) Father Carotid artery disease Surgical History History of elbow surgery History of carpal tunnel surgery History of back surgery History of coronary artery bypass surgery (~09/02/21) Hx of brain surgery Social History household members: spouse Smoking Status: Former smoker alcohol intake: never substance use type: does not use caffeine: No ROS ROS Narrative Review of systems: Constitutional: Patient denies fever or chills. Eyes: Patient denies changes in vision or discharge from eyes. ENT: Patient denies runny nose, sore throat or ear pain. Resp: Patient denies SOB or cough. CV: Patient denies chest pain, palpitations or heart racing. GI: Patient admits to melanotic stools with cramping abdominal pain plus GERD as per HPI. : Patient denies dysuria or hematuria. MSK: Patient denies arthralgias or myalgias. Skin: Patient denies abscess, rash or jaundice. Psych: Patient denies symptoms of uncontrolled depression or anxiety. Neuro: Patient denies headache, paresthesias or focal neurologic deficits. Allergy: Patient denies lip swelling, tongue swelling or urticaria. Endocrine: Patient denies polyuria, polydipsia and polyphagia. Hematology: Patient admits to 6 dark bloody BM's today. 14 point ROS otherwise negative except for positives noted above in HPI. Physical Exam Const alert, oriented x3, no apparent distress and healthy appearing General Appearance: cooperative, well kempt and well developed Orientation / Consciousness: awake, oriented to person, oriented to place and oriented to time HEENT normocephalic, head/scalp atraumatic and moist oral mucous membranes Eyes PERRL, EOMs intact bilaterally and conjunctivae normal Neck supple, no JVD, thyroid normal and no carotid bruits General: trachea midline Resp normal respiratory effort, no retractions, no use of accessory muscles and clear to auscultation bilaterally Auscultation: Negative for rales, rhonchi or wheezes Cardio regular rate, regular rhythm, S1 normal heart sound, S2 normal heart sound, no murmurs, no rub and no gallops GI normal to inspection, nondistended, normoactive bowel sounds, soft to palpation, non-tender and non-distended Extremity no clubbing, cyanosis or edema Skin no rashes or lesions noted General Skin Exam: no breakdown Neuro oriented x3, CN's II-XII intact bilaterally, no focal motor deficits and no sensory deficits noted Sensorium / Orientation: awake and alert Speech: speech normal Psych affect normal Lab / Micro Data 12/30/23 04:12 12/30/23 06:10 Labs: Laboratory Results - last 24 hr 12/29/23 18:55: WBC 11.1 H, RBC 4.18 L, Hgb 12.2 L, Hct 37.5 L, MCV 89.7, MCH 29.2, MCHC 32.5, RDW Std Deviation 45.4 H, RDW Coeff of Víctor 13.9, Plt Count 273, MPV 11.1, Immature Gran % (Auto) 0.500, Neut % (Auto) 70.9 H, Lymph % (Auto) 19.0, [place] % (Auto) 6.1, Eos % (Auto) 2.6, Baso % (Auto) 0.9, Absolute Neuts (auto) 7.9 H, Absolute Lymphs (auto) 2.11, Nucleated RBC % 0, PT 15.5 H, INR 1.2, APTT 28.8, Sodium 141, Potassium 3.8, Chloride 108 H, Carbon Dioxide 26.0, Anion Gap 7, BUN 22 H, Creatinine 1.28, Estim Creat Clear Calc 48.33, Est GFR (MDRD) Af Amer 70, Est GFR (MDRD) Non-Af 58 L, BUN/Creatinine Ratio 17.2, G lucose 192 H, Calcium 8.9, Total Bilirubin 0.70, AST 17, ALT 14 L, Alkaline Phosphatase 95, Total Protein 6.8, Albumin 3.2, Globulin 3.6, Albumin/Globulin Ratio 0.9, TSH 2.90, Blood Type O POSITIVE, Antibody Screen NEGATIVE 12/29/23 19:40: Lactic Acid 1.4 12/29/23 23:15: Troponin I High Sens 10 12/30/23 04:12: WBC 8.9, RBC 3.41 L, Hgb 9.9 L, Hct 30.6 L, MCV 89.7, MCH 29.0, MCHC 32.4, RDW Std Deviation 45.5 H, RDW Coeff of Víctor 13.9, Plt Count 229, MPV 10.9, Immature Gran % (Auto) 0.800, Neut % (Auto) 73.0 H, Lymph % (Auto) 17.4 L, [place] % (Auto) 6.0, Eos % (Auto) 2.1, Baso % (Auto) 0.7, Absolute Neuts (auto) 6.5, Absolute Lymphs (auto) 1.54, Nucleated RBC % 0 12/30/23 06:10: Sodium 140, Potassium 3.8, Chloride 113 H, Carbon Dioxide 21.0, Anion Gap 6, BUN 20 H, Creatinine 1.02, Estim Creat Clear Calc 60.65, Est GFR (MDRD) Af Amer 91, Est GFR (MDRD) Non-Af 75, BUN/Creatinine Ratio 19.6, Glucose 143 H, Calcium 8.5, Phosphorus 2.5, Magnesium 2.0, Total Bilirubin 0.70, AST 12 L, ALT 10 L, Alkaline Phosphatase 71, Total Protein 5.4 L, Albumin 2.6 L, Globulin 2.8, Albumin/Globulin Ratio 0.9 Assessment & Plan Assessment/Plan (1) Acute upper GI bleed: (2) Adverse drug reaction: QUALIFIERS: Encounter type: initial encounter Qualified Code(s): T50.905A - Adverse effect of unspecified drugs, medicaments and biological substances, initial encounter (3) GERD (gastroesophageal reflux disease): QUALIFIERS: Esophagitis presence: esophagitis presence not specified Qualified Code(s): K21.9 - Gastro-esophageal reflux disease without esophagitis (4) History of peptic ulcer disease: (5) CAD (coronary artery disease): QUALIFIERS: Coronary Disease-Associated Artery/Lesion type: redd[place] artery [place] vs. 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 Patient undergo an upper endoscopy and possible colonoscopy. He was explained alternatives, risk, benefits include not withstanding bleeding, infection, sepsis, perforation, need for emergent surgery and . He will have an ASA of 3. Continue to hold antiplatelet therapy. Charges/Coding Visit Charges Inpatient E&M: 77675 Init Hosp L3
[2023-12-30] MEDS: 0.9% Normal Saline (1000mL) 1,000 ML 70 ML IV (16:37)
[2023-12-30 20:31] LABS: Hematocrit 24.7 % (40-54)
[2023-12-31] VITALS (10 sets, daily range): BP systolic 97–120; BP diastolic 43–73; PULSE 66–84; RESP 16–18; TEMP 36.2–36.6; O2SAT 93–98; BMI 25.7
--- NOTE | 2023-12-31 | IMM_PTH ---
PATIENT: DERICK ROGER LOC: [facility] U#:[id number] AGE/SX: 78/M ROOM: [facility] RE12/29/[address]: Dr. Ankit Vilchis DO : 1945 BED: 1 DIS: 01/01/2024 SPEC #: [id number] RECD: 01/02/24 11:29 STATUS: SOUMiky REQ #: [id number] SWETHA: 12/31/23 00:[address]: Ulises Torres DEPT: IMMUNOHISTOCHEMISTRY RECD BY: Glynn Cardoza ENTERED: 01/02/24 11:30 SP TYPE: IMMUNO OTHR DR: DO Dr. Chrissy Root MD Dr. Mark Tereletsky, DO Tissues: B - Esophagus, NOS Procedures: P53 (initial) KI-67 (add) Comments: @ Ordering doctor for P53 edited from to @ by MAIDA at 01/02/24 1130 @ Ordering doctor for KI67. edited from to @ by MAIDA at 01/02/24 1130 @ Submitting doctor edited from to @ by MAIDA at 01/02/24 1130 PHYSICIAN & [place] [id number] SPECIMEN INFORMATION: Tissue Source: B- Distal esophagus biopsy Clinical Info: Acute upper GI bleed Specimen Number: [id number] CPT code: 95645,97604 METHODOLOGY: Deparaffinized sections of prefer/formalin-fixed tissue or PAP/DQ stained slides are incubated with monoclonal/polyclonal antibodies/oligonucleotide probes. Localization is made via biotin free immunoperoxidase method. Appropriate controls are performed and reacted as expected. Results on target cell population are indicated in the following table: RESULTS: ANTIBODY / CLONE RESULT Block B P53 (DO-7) positive, wild type pattern Ki-67 (30-9) positive, low These tests were developed and their performance characteristics determined by [facility]. They may not have been cleared or approved by the U.S. Food and Drug Administration. The FDA has determined that such clearance or approval is not necessary. The above immunohistochemical/dualISH markers are ordered and reviewed by the Pathologist. INTERPRETATION: B. Distal esophagus, biopsy: No evidence of dysplasia. JOHN/ 01/03/2024
[2023-12-31] MEDS: Pantoprazole Sodium 80 MG in 0.9% Normal Saline (100mL Bag) 80 ML 10 MG CONT INF ×3 (03:54→23:53)
[2023-12-31 05:51] LABS: Absolute Neutrophil Count 4.4 X10^3/uL (2.0-7.7); Basophil# 0.04 X10^3/uL; Basophil% 0.6 % (0-1); Eosinophil# 0.35 X10^3/uL; Eosinophils% 5.1 % (0-5); Hematocrit 23.6 % (40-54); Hemoglobin 7.7 g/dL (13.0-16.5); Mean Corp Hgb Conc 32.6 g/dL (32-36); Mean Corpuscular Hgb 29.4 pg (27.0-32.0); Mean Corpuscular Volume 90.1 fL (80-94); Monocyte# 0.49 X10^3/uL; Monocyte% 7.2 % (0-10); NRBC Flagged by Analyzer 0 % (0-5); Neutrophil # 4.38 X10^3/uL (2.7-7.7); Neutrophil % 64.4 % (47-70); Platelet Count 182 K/mm3 (150-450); RBC Distribution Width SD 45.9 fl (35.1-43.9); Red Blood Count 2.62 M/mm3 (4.6-6.2); White Blood Count 6.8 K/mm3 (4.4-11.0)
--- NOTE | 2023-12-31 05:55 | EKG12_ITS ---
Test Reason : PRE-OP Blood Pressure : / mmHG Vent. Rate : 073 BPM Atrial Rate : 073 BPM P-R Int : 154 ms QRS Dur : 088 ms QT Int : 410 ms P-R-T Axes : 050 017 021 degrees QTc Int : 451 ms Normal sinus rhythm Normal ECG When compared with ECG of 30-MAR-2023 12:12, Nonspecific T wave abnormality now evident in Inferior leads QT has lengthened Confirmed by PATRICIA VANG, ELSA ([id number]), associate editor MEETA BROWN ([id number]) on 01/01/2024 1:10:12 PM Referred By: Confirmed By:ELSA GOMEZ MD
[2023-12-31 06:30] LABS: Anion Gap 5 (5-15); BUN 12 mg/dL (7-18); BUN/Creat Ratio 12.6 RATIO (10-20); Chloride 114 mmol/L (98-107); Creatinine, Serum 0.95 mg/dL (0.70-1.30); EST Glomerular Filtration Rate 82 mL/min (>60); Est Glom Filt Rate - Afr Amer 99 mL/min (>60); Estimated Creatinine Clearance 65.12 ml/min; Glucose 93 mg/dL (74-106); Potassium 3.3 mmol/L (3.5-5.1); Sodium Level 140 mmol/L (136-145); Thyroid Stim Hormone (TSH) 5.43 uIU/mL (0.358-3.74)
[2023-12-31 06:37] LABS: International Normalized Ratio 1.3; Prothrombin Time (Protime)PT. 15.9 SECONDS (11.7-14.9)
[2023-12-31 06:39] LABS: Partial Thromboplast Time 31.4 Seconds (24.1-36.2)
--- NOTE | 2023-12-31 08:22 | PN.HOSP_ITS ---
Reason for Visit Reason for Visit: Diagnoses Epilepsy, unspecified, not intractable, without status epilepticus (12/29/23) Atherosclerotic heart disease of [place] coronary artery without angina pectoris (12/29/23) Occlusion and stenosis of bilateral carotid arteries (12/29/23) Gastro-esophageal reflux disease without esophagitis (12/29/23) Gastrointestinal hemorrhage, unspecified (12/29/23) Adverse effect of unspecified drugs, medicaments and biological substances, initial encounter (12/29/23) Personal history of other diseases of the circulatory system (12/29/23) Personal history of peptic ulcer disease (12/29/23) Personal history of (corrected) congenital malformations of heart and circulatory system (12/29/23) Presence of aortocoronary bypass graft (12/29/23) Subjective Subjective Patient was seen and examined today, he has no specific complaints. He will undergo an EGD today, hemoglobin today was 7.7. Objective Data Objective Data Vital Signs: Vital Signs Temp Pulse Resp BP Pulse Ox O2 Del Method 97.2 F L 66 16 104/43 L 94 Room Air 12/31/23 03:56 12/31/23 03:56 12/31/23 03:56 12/31/23 03:56 12/31/23 03:56 12/31/23 08:19 Oxygen Delivery Method Room Air Weight: 78.9 kg Body Mass Index (BMI) 25.7 Intake & Output: Intake and Output for Last 24 Hours 12/29/23 12/30/23 12/31/23 23:59 23:59 23:59 Intake Total 3232.66 / 3472.66 340 / 340 Output Total 450 / 800 550 / 550 Balance 2782.66 / 2672.66 -210 / -210 Lab / Micro Data 12/31/23 05:13 12/31/23 05:13 Labs: Laboratory Results - last 24 hr 12/30/23 20:20: Hgb 8.0 L, Hct 24.7 L 12/31/23 05:13: WBC 6.8, RBC 2.62 L, Hgb 7.7 L, Hct 23.6 L, MCV 90.1, MCH 29.4, MCHC 32.6, RDW Std Deviation 45.9 H, RDW Coeff of Víctor 14.0, Plt Count 182, MPV 11.0, Immature Gran % (Auto) 0.700, Neut % (Auto) 64.4, Lymph % (Auto) 22.0, [place] % (Auto) 7.2, Eos % (Auto) 5.1 H, Baso % (Auto) 0.6, Absolute Neuts (auto) 4.4, Absolute Lymphs (auto) 1.50, Nucleated RBC % 0, PT 15.9 H, INR 1.3, APTT 31.4, Sodium 140, Potassium 3.3 L, Chloride 114 H, Carbon Dioxide 21.0, Anion Gap 5, BUN 12, Creatinine 0.95, Estim Creat Clear Calc 65.12, Est GFR (MDRD) Af Amer 99, Est GFR (MDRD) Non-Af 82, BUN/Creatinine Ratio 12.6, Glucose 93, C alcium 8.0 L, TSH 5.43 H Physical Exam Narrative alert, oriented x3, no apparent distress and healthy appearing General Appearance: cooperative, well kempt and well developed Orientation / Consciousness: awake, oriented to person, oriented to place and oriented to time HEENT normocephalic, head/scalp atraumatic and moist oral mucous membranes Eyes PERRL, EOMs intact bilaterally and conjunctivae normal Neck supple, no JVD, thyroid normal and no carotid bruits General: trachea midline Resp normal respiratory effort, no retractions, no use of accessory muscles and clear to auscultation bilaterally Auscultation: Negative for rales, rhonchi or wheezes Cardio regular rate, regular rhythm, S1 normal heart sound, S2 normal heart sound, no murmurs, no rub and no gallops GI normal to inspection, nondistended, normoactive bowel sounds, soft to palpation, non-tender and non-distended Extremity no clubbing, cyanosis or edema Skin no rashes or lesions noted General Skin Exam: no breakdown Neuro oriented x3, CN's II-XII intact bilaterally, no focal motor deficits and no sensory deficits noted Sensorium / Orientation: awake and alert Speech: speech normal Psych affect normal Assessment & Plan Assessment/Plan (1) GI bleed: PLAN: Plan 1. Acute GI bleed-unclear whether it is an upper GI versus lower GI bleed at this time, patient will undergo upper endoscopy today, it may be necessary to perform a colonoscopy on the patient in the near future #2 coronary artery disease-patient's Plavix and aspirin are being held right now, patient stable #3 hyperlipidemia-patient is on a statin #4 seizure disorder-patient remains on Keppra #5 acute blood loss anemia secondary to acute GI bleed-patient does not require transfusion at this point, hemoglobins will be monitored #6 hypothyroidism-patient remains on Synthroid Total clinical time spent by myself addressing the patient's medical issues, reviewing all of his data, and collaborating with the patient's care team: 35 minutes Charges/Coding Visit Charges Inpatient E&M: 37282 Subs Hosp L2
[2023-12-31] MEDS: 0.9% Normal Saline (1000mL) 1,000 ML 70 ML IV ×2 (08:24→21:08)
--- NOTE | 2023-12-31 08:30 | EGD_PTH ---
PATIENT: DERICK ROGER LOC: [facility] U#:[id number] AGE/SX: 78/M ROOM: [facility] RE12/29/[address]: Dr. Ankit Vilchis DO : 1945 BED: 1 DIS: 01/01/2024 SPEC #: [id number] RECD: 01/01/24 07:22 STATUS: JARED MENDEZ #: [id number] SWETHA: 12/31/23 08:[address]: Ulises Torres DEPT: SURGICAL PATHOLOGY RECD BY: Audrey Marina ENTERED: 01/01/24 08:46 SP TYPE: EGD BIOPSY OT DR: DO Dr. Chrissy Root MD Dr. Mark Tereletsky, DO Tissues: A - Duodenum, NOS B - Esophagus, NOS Procedures: Special Stain Group I Surgery Specimen Level IV Alcian Blue/PAS (control) HEADER OPERATION: EGD with biopsies and cautery using the gold probe PRE-OP DIAGNOSIS: Acute upper GI bleed TISSUE SUBMITTED: A- Duodenum biopsy, B- Distal esophagus biopsy MICROSCOPIC DIAGNOSIS A. Duodenum, biopsy: Focal gastric metaplasia. Mild chronic inflammation. B. Distal esophagus, biopsy: Gastroesophageal junctional mucosa with mild chronic inflammation. 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 No evidence of dysplasia. See comment. JOHN/ 01/02/2024 COMMENT B. Immunohistochemistry ([id number]) for P53 and Ki-67 will be performed and results will be reported separately. Alcian blue/PAS stain with matched control is used in the evaluation of the specimen. MICROSCOPIC DESCRIPTION Slides are reviewed. GROSS DESCRIPTION A. Received in fixative is one container labeled with the patient's name and designated Duodenum biopsy. The specimen consists of two irregular fragments of [place] soft tissue that in aggregate measure 0.6 x 0.3 x 0.1 cm. The specimen is totally submitted in one cassette. B. Received in fixative is one container labeled with the patient's name and designated Distal esophagus biopsy. The specimen consists of multiple irregular fragments of [place] soft tissue that in aggregate measure 1.5 x 0.3 x 0.1 cm. The specimen is totally submitted in one cassette. Sherif 01/01/2024 TC:3 CPT:73423y0,58383
[2023-12-31] MEDS: Lactated Ringers 1,000 ML 15 ML IV (08:40)
--- NOTE | 2023-12-31 08:57 | PRE.ANES_ITS ---
ASA Classification* ASA Classification ASA Classification: 3 and E Assessment & Plan Anesthesia* Anesthesia Assessment Anesthesia Assessment: Discussed sedation and/or anesthesia options, risks, benefits, and alternatives with patient/parents/legal guardian/POA. Questions invited. The patient/parents/legal guardian/POA seems to understand and agrees to proceed with anesthesia plan. Reviewed the physical assessment, medical history, allergy history and patient home medications list prior to surgery/procedure/anesthetic and documented any changes. Performed airway and anesthesia risk assessments. Anesthesia Type Anesthesia Type: MAC History Source History Obtained from:: Patient Anesthesia Focused Assessment* Temperature: 97.2 F Pulse Rate: 66 Blood Pressure: 104/43 Respiratory Rate: 16 Pulse Ox: 94 Oxygen Delivery Method: Room Air Airway Assessment Mouth opens: >3 cm Mallampati Score: II Teeth Condition: Chipped/Broken and Dentures Neck Range of motion (ROM): Full ROM Focused Labs Anesthesia Preop lab: CBC WBC 6.8 K/mm3 (4.4-11.0) 12/31/23 05:13 RBC 2.62 M/mm3 (4.6-6.2) L 12/31/23 05:13 Hgb 7.7 g/dL (13.0-16.5) L 12/31/23 05:13 Hct 23.6 % (40-54) L 12/31/23 05:13 Plt Count 182 K/mm3 (150-450) 12/31/23 05:13 CHEMISTRY Potassium 3.3 mmol/L (3.5-5.1) L 12/31/23 05:13 Sodium 140 mmol/L (136-145) 12/31/23 05:13 Magnesium 2.0 mg/dL (1.6-2.6) 12/30/23 06:10 Phosphorus 2.5 mg/dL (2.5-4.9) 12/30/23 06:10 BUN 12 mg/dL (7-18) 12/31/23 05:13 Creatinine 0.95 mg/dL (0.70-1.30) 12/31/23 05:13 Glucose 93 mg/dL (74-106) 12/31/23 05:13 POC Glucose 121 mg/dL (70-110) H 04/03/12 22:37 TSH 5.43 uIU/mL (0.358-3.74) H 12/31/23 05:13 COAG PT 15.9 SECONDS (11.7-14.9) H 12/31/23 05:13 Pre-Assessment Diagnosis/Proposed Procedure Planned Operative Procedure(s): EGD Anesthesia History 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 When Was Last Pacemaker Check QUESTION #4 FULL TEXT: You/Your Family Experience fever (hyperthermia) with Anesthesia Last Oral Intake Last Oral intake: Last Oral Intake NPO since 00:00 12/31/23 04:49 Meds taken in AM with sips of No 12/31/23 04:49 water? 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 Female HX of Motion Sickness HX of N/V After Surgery Non-Smoker Duration of Surgery greater than 60 minutes Number of Risk Factors PONV Score Height & Weight Height & Weight: Anesthesia: Height & Weight Height 5 ft 9 in 12/31/23 04:49 Weight: 78.9 kg 12/31/23 04:49 Body Mass Index (BMI) 25.7 12/31/23 04:49 Respiratory Assessment Respiratory Assessment - new car salesperson: Respiratory Tract Infection Hx - new car salesperson Hx Respiratory Tract Infection No 12/31/23 04:49 STOP Sleep Apnea STOP Sleep Apnea - new car salesperson: STOP Sleep Apnea - new car salesperson Hx Hypertension No 12/30/23 13:57 Hx Sleep Apnea No 12/29/23 22:54 CPAP BIPAP Do you snore loudly (louder No 12/29/23 22:54 than talking or can be heard Do you often feel tired/ No 12/29/23 22:54 fatigued/ sleepy during daytime? Has anyone observed you stop No 12/29/23 22:54 breathing during sleep? STOP Results Negative 12/29/23 22:54 QUESTION #5 FULL TEXT : Do you snore loudly (louder than talking or can be heard through closed doors)? 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 Specify any problems Hx of Preganancy in last 3 N/A 12/29/23 22:54 Months Nurse Filling Out Transfusion ASTSHAHRIAR 12/29/23 22:54 & Questions: Date: 12/29/23 12/29/23 22:54 Time: 23:10 12/29/23 22:54 Patient unable to answer at this time (ie. confused, unrespo /Reproduction History /Reproductive History - new car salesperson: /Reproductive Hx- new car salesperson Hx Now No 12/31/23 04:49 Gestational Age (in weeks): EDC: Hx Hx Para Hx Section SAB No 12/31/23 04:49 Active Medications Active Medications: Current Medications Generic Name Dose Route Start Last Admin Trade Name Freq PRN Reason Stop Dose Admin Sodium Chloride 250 mls @ 15 mls/hr 12/29/23 22:54 12/30/23 07:00 IV 0 mls/hr .[id number] PRN Infusion Additional IVPB Infusion Sodium Chloride 250 mls @ 15 mls/hr 12/29/23 22:54 IV .[id number] PRN Saline Flush Pantoprazole Sodium 80 mg/ 100 mls @ 10 mls/hr 12/29/23 22:55 12/31/23 03:54 Sodium Chloride CONT INF 10 mls/hr Q10H SONALI Administration Levetiracetam 500 mg/ Sodium 105 mls @ 420 mls/hr 12/29/23 22:55 12/30/23 22:16 Chloride IV Infused Q12 SONALI Infusion Sodium Chloride 1,000 mls @ 70 mls/hr 12/29/23 22:55 12/31/23 08:24 IV 70 mls/hr .[id number] SONALI Administration Lactated Ringer's 1,000 mls @ 15 mls/hr 12/31/23 08:45 12/31/23 08:40 IV 15 mls/hr .Q48H SONALI Administration Levothyroxine Sodium 200 mcg 01/06/24 10:00 Levothyroxine Sodium 100 Mcg Vial IV Q7D SONALI Morphine Sulfate 2 mg 12/29/23 22:55 Morphine 2 Mg/Ml Syringe IV Q4H PRN PRN Pain Score 6-10 Ondansetron HCl 4 mg 12/29/23 22:55 Ondansetron 4 Mg/2 Ml Vial IV Q8H PRN PRN NAUSEA/VOMITING Sodium Chloride 10 - 40 ml 12/29/23 22:54 0.9% Saline Lock 10 Ml Syringe IV UD PRN SALINE FLUSH PFSH Medical History History of intracranial hemorrhage Cerebral arteriovenous malformation Dyslipidemia CAD (coronary artery disease) Deafness in right ear Pleural effusion Bilateral carotid artery stenosis Seizure disorder Hypothyroidism History of left heart catheterization (LHC) (~08/31/21) Atherosclerotic heart disease of [place] coronary artery without angina pectoris HTN (hypertension) Non-ST elevated myocardial infarction (non-STEMI) Seizure Home Medications ?Medication ?Instructions ?Recorded ?Last Taken ?Type levetiracetam 500 mg tablet 500 mg PO BID 02/15/16 08/11/16 History levothyroxine 100 mcg tablet 100 mcg PO DAILY 06/05/21 Unknown History (Euthyrox) acetaminophen 325 mg tablet 650 mg PO Q4H PRN fever or pain 09/13/21 Unknown History aspirin 81 mg tablet,delayed 81 mg PO DAILY 09/13/21 Unknown History release (Adult Low Dose Aspirin) atorvastatin 40 mg tablet 40 mg PO QHS 09/13/21 Unknown History clopidogrel 75 mg tablet 75 mg PO DAILY 09/13/21 Unknown History Handicap cata #1 ea 11/23/21 Unknown Rx metoprolol tartrate 25 mg tablet 50 mg PO BID 12/29/23 Unknown History Allergy/AdvReac Type Severity Reaction Status Date / Time No Known Allergies Allergy Verified 12/29/23 18:40 Family History Mother CAD (coronary artery disease) Father Carotid artery disease Surgical History History of elbow surgery History of carpal tunnel surgery History of back surgery History of coronary artery bypass surgery (~09/02/21) Hx of brain surgery Social History household members: spouse Smoking Status: Former smoker alcohol intake: never substance use type: does not use caffeine: No Review of Systems (Anesthesia) ROS Narrative System reviewed and no additional complaints, except as documented. Physical Exam Const alert and oriented x3 Orientation / Consciousness: awake Resp normal respiratory effort Cardio regular rate and regular rhythm Neuro oriented x3
--- NOTE | 2023-12-31 09:22 | OP.EGD_ITS ---
Patient Name: Haris Amor Procedure Date: 12/31/2023 9:00 AM Date of : 1945 Age: 78 Procedure: Upper GI endoscopy Indications: Melena Providers: Ulises Torres DO Medicines: Monitored Anesthesia Care Patient Profile: This is a 78 year old male. Refer to note in patient chart for documentation of history and physical. Patient has symptoms. Complications: No immediate complications. Procedure: Pre-Anesthesia Assessment: - Prior to the procedure, a History and Physical was performed, and patient medications and allergies were reviewed. The patient is competent. The risks and benefits of the procedure and the sedation options and risks were discussed with the patient. All questions were answered and informed consent was obtained. Patient identification and proposed procedure were verified by the physician in the pre-procedure area. Mental Status Examination: alert and oriented. Airway Examination: normal oropharyngeal airway and neck mobility. Respiratory Examination: clear to auscultation. CV Examination: normal. Prophylactic Antibiotics: The patient does not require prophylactic antibiotics. Prior Anticoagulants: The patient has taken no anticoagulant or antiplatelet agents. ASA Grade Assessment: II - A patient with mild systemic disease. After reviewing the risks and benefits, the patient was deemed in satisfactory condition to undergo the procedure. The anesthesia plan was to use monitored anesthesia care (MAC). Immediately prior to administration of medications, the patient was re-assessed for adequacy to receive sedatives. The heart rate, respiratory rate, oxygen saturations, blood pressure, adequacy of pulmonary ventilation, and response to care were monitored throughout the procedure. The physical status of the patient was re-assessed after the procedure. After obtaining informed consent, the endoscope was passed under direct vision. Throughout the procedure, the patient's blood pressure, pulse, and oxygen saturations were monitored continuously. The Endoscope was introduced through the mouth, and advanced to the second part of duodenum. The upper GI endoscopy was accomplished without difficulty. The patient tolerated the procedure well. Scope In: 9:05:43 AM Scope Out: 9:13:03 AM Total Procedure Duration Time 0 hours 7 minutes 20 seconds Findings: There were esophageal mucosal changes consistent with long-segment Lopez's esophagus present in the lower third of the esophagus. The maximum longitudinal extent of these mucosal changes was 5 cm in length. Mucosa was biopsied with a cold forceps for histology in a targeted manner at intervals of 1 cm in the lower third of the esophagus. One specimen bottle was sent to pathology. Verification of patient identification for the specimen was done. Estimated blood loss was minimal. The entire examined stomach was normal. One oozing linear duodenal ulcer with pigmented material was found in the duodenal bulb. The lesion was 5 mm in largest dimension. Coagulation for hemostasis using heater probe was successful. Estimated blood loss was minimal. Patchy mild inflammation characterized by erythema and friability was found in the first portion of the duodenum and in the second portion of the duodenum. Biopsies were taken with a cold forceps for histology. Verification of patient identification for the specimen was done. Estimated blood loss was minimal. 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 Biopsied. - Normal stomach. - Oozing duodenal ulcer with pigmented material. Treated with a heater probe. - Chronic duodenitis. Biopsied. Recommendation: - Return patient to [facility] for ongoing care. - Full liquid diet today. - Use Protonix (pantoprazole) 40 mg PO BID for 3 months. - Continue present medications. Procedure Code(s): --- Professional --- 53478, 59, Esophagogastroduodenoscopy, flexible, transoral; with control of bleeding, any method 88365, 51, Esophagogastroduodenoscopy, flexible, transoral; with biopsy, single or multiple CPT copyright 2021 [employer]. All rights reserved. The codes documented in this report are preliminary and upon processing archivist review may be revised to meet current compliance requirements. Ulises Torres DO 12/31/2023 9:22:04 AM This report has been signed electronically. Number of Addenda: 0 Note Initiated On: 12/31/2023 9:00 AM
--- NOTE | 2023-12-31 09:22 | OP.CCLET_ITS ---
12/31/2023 Chrissy Elizabeth Md Re : Upper GI endoscopy procedure for Haris Flynnbaldomero Elizabeth This procedure was performed on Sunday, December 31, 2023. 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 Biopsied. - Normal stomach. - Oozing duodenal ulcer with pigmented material. Treated with a heater probe. - Chronic duodenitis. Biopsied. Recommendations : - Return patient to [facility] for ongoing care. - Full liquid diet today. - Use Protonix (pantoprazole) 40 mg PO BID for 3 months. - Continue present medications. My findings are described in the full procedure note, which is enclosed. If I can be of further assistance, please feel free to contact me at . Sincerely, Ulises Torres, 12/31/2023 9:22:04 AM This report has been signed electronically.
--- NOTE | 2023-12-31 09:24 | PCM.POST.ANE ---
Anesthesia: Postop Eval I Current Vital Signs Temperature: 97.6 F Pulse Rate: 78 Blood Pressure: 97/63 Respiratory Rate: 18 Pulse Ox: 98 Oxygen Delivery Method: Room Air Assessment Airway patent: Yes Spontaneous unlabored respirations: Yes Mental status: Awake nausea: No Vomiting: No Anesthesia Complication: No Fluid Hydration Crystalloid volume administer (ml): 300 Total IV fluid infused: 300 Progress Note Anesthesia document: Postop Eval 1 completed: Yes
--- NOTE | 2023-12-31 09:27 | POSTOPAN2_ITS ---
Anesthesia Postop Eval I Sum Postop Eval Completion status Anesthesia document: Postop Eval 1 completed: Yes Anesthesia Postop Eval I Summary Anesthesia Postop Eval I Summary: Anesthesia Postop Eval I: Assessment Summary Airway patent Yes 12/31/23 09:25 SHAKER OUT.MEDM Spontaneous unlabored Yes 12/31/23 09:25 SHAKER OUT.MEDM respirations Mental status Awake 12/31/23 09:25 SHAKER OUT.MEDM nausea No 12/31/23 09:25 SHAKER OUT.MEDM Vomiting No 12/31/23 09:25 SHAKER OUT.MEDM Anesthesia Postop Eval I: Fluid Summary Crystalloid volume administer 300 12/31/23 09:25 SHAKER OUT.MEDM (ml) Colloids volume administered ( ml) Blood Product volume administered (ml) Total IV fluid infused 300 12/31/23 09:25 SHAKER OUT.MEDM Anesthesia Postop Eval I: Summary Notes Anesthesia Complication No 12/31/23 09:25 SHAKER OUT.MEDM Anesthesia Complication Comment: Post-operative progress note Anesthesia: Postop Eval II Evaluation Mental status: Awake Pain Level: 0 nausea: No Vomiting: No
--- NOTE | 2023-12-31 09:27 | PCM.POSTANE2 ---
Anesthesia Postop Eval I Sum Postop Eval Completion status Anesthesia document: Postop Eval 1 completed: Yes Anesthesia Postop Eval I Summary Anesthesia Postop Eval I Summary: Anesthesia Postop Eval I: Assessment Summary Airway patent Yes 12/31/23 09:25 WHARF ATTENDANT.MEDM Spontaneous unlabored Yes 12/31/23 09:25 WHARF ATTENDANT.MEDM respirations Mental status Awake 12/31/23 09:25 WHARF ATTENDANT.MEDM nausea No 12/31/23 09:25 WHARF ATTENDANT.MEDM Vomiting No 12/31/23 09:25 WHARF ATTENDANT.MEDM Anesthesia Postop Eval I: Fluid Summary Crystalloid volume administer 300 12/31/23 09:25 WHARF ATTENDANT.MEDM (ml) Colloids volume administered ( ml) Blood Product volume administered (ml) Total IV fluid infused 300 12/31/23 09:25 WHARF ATTENDANT.MEDM Anesthesia Postop Eval I: Summary Notes Anesthesia Complication No 12/31/23 09:25 WHARF ATTENDANT.MEDM Anesthesia Complication Comment: Post-operative progress note Anesthesia: Postop Eval II Evaluation Mental status: Awake Pain Level: 0 nausea: No Vomiting: No
[2023-12-31] MEDS: levETIRAcetam IV 500 MG in 0.9% Normal Saline (100mL Bag) 100 ML 420 MG IV ×2 (09:58→21:06)
[2024-01-01 03:54] VITALS: BMI 25.7
[2024-01-01 04:00] VITALS: BP 116/52; PULSE 83; RESP 16; TEMP 35.9; O2SAT 98
[2024-01-01 05:34] LABS: Absolute Lymphocyte Count 1.26 X10^3/uL (0.83-4.51); Basophil# 0.02 X10^3/uL; Basophil% 0.3 % (0-1); Eosinophil# 0.37 X10^3/uL; Eosinophils% 5.1 % (0-5); Hematocrit 23.7 % (40-54); Hemoglobin 7.8 g/dL (13.0-16.5); Lymphocyte # 1.26 X10^3/ul (0.83-4.51); Lymphocyte % 17.4 % (19-41); Mean Corp Hgb Conc 32.9 g/dL (32-36); Mean Corpuscular Hgb 29.4 pg (27.0-32.0); Mean Corpuscular Volume 89.4 fL (80-94); Mean Platelet Vol. 10.6 fl (6.2-12.0); Monocyte# 0.59 X10^3/uL; Monocyte% 8.1 % (0-10); NRBC Flagged by Analyzer 0 % (0-5); Neutrophil # 4.95 X10^3/uL (2.7-7.7); Neutrophil % 68.4 % (47-70); Platelet Count 168 K/mm3 (150-450); RBC Distribution Width SD 45.9 fl (35.1-43.9); Red Blood Count 2.65 M/mm3 (4.6-6.2); White Blood Count 7.2 K/mm3 (4.4-11.0)
[2024-01-01 06:19] LABS: Anion Gap 6 (5-15); BUN 7 mg/dL (7-18); Calcium,Total 8.3 mg/dL (8.5-10.1); Chloride 112 mmol/L (98-107); Creatinine, Serum 0.88 mg/dL (0.70-1.30); EST Glomerular Filtration Rate 90 mL/min (>60); Est Glom Filt Rate - Afr Amer 108 mL/min (>60); Glucose 94 mg/dL (74-106); Potassium 3.4 mmol/L (3.5-5.1); Sodium Level 140 mmol/L (136-145)
[2024-01-01 08:58] VITALS: BP 125/78; PULSE 89; RESP 16; TEMP 36.3; O2SAT 99
[2024-01-01 09:00] VITALS: O2SAT 99
--- NOTE | 2024-01-01 09:18 | DCINST_ITS ---
Discharge Instructions Diet Discharge Diet: No restrictions Activity Discharge Activity: Return to Normal Activity Weight Bearing Status: Full weight bearing Follow Up Care Test Results: Test results from this visit will be discussed in further detail at your follow- up appointment, if applicable. Discharge Plan Admission Admit Date/Time: 12/29/23 22:14 Primary Reason for Your Visit: upper GI bleed Attending Provider: Ankit Vilchis Primary Care Provider: Chrissy Elizabeth Consulting Providers: Arsalan Delgadillo Instructions Additional Instructions / Restrictions: Stay off clopidogrel and aspirin for 10 more days then resume only aspirin 81 mg daily thereafter Do not take any ibuprofen, Aleve, or Advil for pain, Tylenol is permitted for pain Discharge Orders/Prescriptions Prescriptions: New omeprazole 40 mg capsule,delayed release(DR/EC) 40 mg PO BID Qty: 60 0RF Continued (DME) Handicap placard See Rx Instructions .Route .MEDSUPPLY Qty: 1 0RF Rx Instructions: Expiration date: unlimited levetiracetam 500 MG tablet 500 mg PO BID levothyroxine [Euthyrox] 100 mcg tablet 100 mcg PO DAILY metoprolol tartrate 25 mg tablet 50 mg PO BID acetaminophen 325 mg tablet 650 mg PO Q4H PRN (Reason: fever or pain) atorvastatin 40 mg tablet 40 mg PO QHS Discontinued clopidogrel 75 mg tablet 75 mg PO DAILY aspirin [Adult Low Dose Aspirin] 81 mg tablet,delayed release (DR/EC) 81 mg PO DAILY Referrals / Follow Up: Chrissy Elizabeth MD [Primary Care Provider] - Disposition Disposition (needs filled in before D/C Order can be placed): Home, Self Care
--- NOTE | 2024-01-01 09:29 | PCM.DC.SUM ---
Providers Date of Admission: 12/29/23 Date of Discharge: 01/01/24 Primary Care Physician: Dr. Chrissy Elizabeth MD Consultations 12/29/23 22:55 Consult: Gastroenterology Routine Consulting Provider: [facility] Reason for Consult: UGIB with Melena 2/2 Adverse Drug Reaction to unopposed BASA and Plavix. EMERGENT Consult: No MD Notified: Yes Date Notified: 12/30/23 Time Notified: 06:05 Method of Notification: Text Reason For Visit: UGIB WITH MELANOTIC STOOLS & ADVERSE DRUG RXN Diagnosis Discharge Diagnosis (1) GI bleed: Status: Acute Code(s): K92.2 - Gastrointestinal hemorrhage, unspecified Plan 1. Acute GI bleed secondary to duodenal ulcer with acute hemorrhage #2 coronary artery disease-patient's Plavix and aspirin are being held right now, patient stable #3 hyperlipidemia-patient is on a statin #4 seizure disorder-patient remains on Keppra #5 acute blood loss anemia secondary to acute GI bleed from duodenal ulcer-patient does not require transfusion at this point, hemoglobins will be monitored #6 hypothyroidism-patient remains on Synthroid #7 Lopez's esophagus #8 chronic duodenitis Total clinical time spent by myself addressing the patient's medical issues, reviewing all of his data, and collaborating with the patient's care team: 35 minutes Medications at Discharge Home Medications levetiracetam 500 mg tablet 500 mg PO BID seizuzres 02/15/16 levothyroxine 100 mcg tablet (Euthyrox) 100 mcg PO DAILY thyroid 06/05/21 acetaminophen 325 mg tablet 650 mg PO Q4H PRN fever or pain 09/13/21 atorvastatin 40 mg tablet 40 mg PO QHS cholesterol 09/13/21 Handicap placard #1 ea 11/23/21 metoprolol tartrate 25 mg tablet 50 mg PO BID cardiac 12/29/23 omeprazole 40 mg capsule,delayed release 40 mg PO BID #60 caps 01/01/24 Hospital Course Operations None Procedures EGD Summary of Care Provided Minutes Spent on Discharge: 31 Hospital Course: This 78-year-old white male was seen in the emergency room at [facility] [place] presenting with blood in his stool. Patient stated he had 3 very dark bowel movements and he noticed red blood in his fifth bowel movement. Patient complained of crampy abdominal pain. Labs performed in the emergency room showed normal white blood cell count, hemoglobin was 12.2 and chemistry profile was unremarkable. Patient was admitted to PCU and seen in consultation by gastroenterology who performed an EGD, EGD showed esophageal mucosal changes consistent with Lopez's esophagus, there was one oozing lineal duodenal ulcer with pigmented material-this area was treated with a heater probe. There is noted to be patchy mild inflammation in the first portion of the duodenum and second portion of the duodenum. Patient's blood count decreased during his hospital stay, he did not require blood transfusion however. On 01/01/2024, patient was seen and examined: On examination he appeared in good health and spirits. Vital signs as documented. Skin warm and dry and without overt rashes. Neck without JVD, neck was supple, trachea midline, thyroid was normal. Lungs clear bilaterally, normal air movement was noted. Heart exam notable for regular rhythm, normal sounds and absence of murmurs, rubs or gallops. Abdomen unremarkable and without evidence of organomegaly, masses, or abdominal aortic enlargement. Bowel sounds are present, abdomen is not distended. Extremities nonedematous, no cyanosis was noted, no clubbing was noted. Neuro: Cranial nerves II through XII are grossly intact, no focal motor deficits were noted, sensation to light touch and pinprick intact, motor exam 5/5 throughout. Psych: Patient is alert and oriented x3, he does not appear anxious or depressed, he does not appear agitated. Patient appears stable for discharge home on 01/01/2024 Weight / BMI Weight Weight: 79.1 kg Body Mass Index (BMI) 25.7 ABG / Lab / Microbiology Data 01/01/24 05:00 01/01/24 05:00 Laboratory: Laboratory Results - last 24 hr 01/01/24 05:00: WBC 7.2, RBC 2.65 L, Hgb 7.8 L, Hct 23.7 L, MCV 89.4, MCH 29.4, MCHC 32.9, RDW Std Deviation 45.9 H, RDW Coeff of Víctor 14.0, Plt Count 168, MPV 10.6, Immature Gran % (Auto) 0.700, Neut % (Auto) 68.4, Lymph % (Auto) 17.4 L, [place] % (Auto) 8.1, Eos % (Auto) 5.1 H, Baso % (Auto) 0.3, Absolute Neuts (auto) 5.0, Absolute Lymphs (auto) 1.26, Nucleated RBC % 0, Sodium 140, Potassium 3.4 L, Chloride 112 H, Carbon Dioxide 22.0, Anion Gap 6, BUN 7, Creatinine 0.88, Estim Creat Clear Calc 70.30, Est GFR (MDRD) Af Amer 108, Est GFR (MDRD) Non-Af 90, BUN/Creatinine Ratio 8.0 L, Glucose 94, Calcium 8.3 L D/C Instructions Discharge Diet: No restrictions Weight Bearing Status: Full weight bearing Meaningful Use Info Meaningful Use Meaningful Use Diagnoses (Choose all that apply): None applicable Ischemic Stroke Statin Dosing Therapy Reference: STATIN DOSE THERAPY REFERENCE: * Patients > 75 years receive moderate or high dose statin therapy. * Patients 75 years or YOUNGER should receive HIGH intensity statin dose unless contraindicated. You will be required to document reason for non-treatment if statin daily dose does not meet guidelines. HIGH DOSE STATIN THERAPY DAILY Atorvastatin > than or = to 40 mg Rosuvastatin > than or = to 20 mg Amlodipine + Atorvastatin > than or = to 2.5/40 mg Ezetimibe + Simvastatin 10/80 mg Simvastatin 80mg Discharge Plan Admission Admit Date/Time: 12/29/23 22:14 Primary Reason for Your Visit: upper GI bleed Attending Provider: Ankit Vilchis Primary Care Provider: Chrissy Elizabeth Consulting Providers: Arsalan Delgadillo Instructions Additional Instructions / Restrictions: Stay off clopidogrel and aspirin for 10 more days then resume only aspirin 81 mg daily thereafter Do not take any ibuprofen, Aleve, or Advil for pain, Tylenol is permitted for pain Discharge Orders/Prescriptions Prescriptions: New omeprazole 40 mg capsule,delayed release(DR/EC) 40 mg PO BID Qty: 60 0RF Continued (DME) Handicap placard See Rx Instructions .Route .MEDSUPPLY Qty: 1 0RF Rx Instructions: Expiration date: unlimited levetiracetam 500 MG tablet 500 mg PO BID levothyroxine [Euthyrox] 100 mcg tablet 100 mcg PO DAILY metoprolol tartrate 25 mg tablet 50 mg PO BID acetaminophen 325 mg tablet 650 mg PO Q4H PRN (Reason: fever or pain) atorvastatin 40 mg tablet 40 mg PO QHS Discontinued clopidogrel 75 mg tablet 75 mg PO DAILY aspirin [Adult Low Dose Aspirin] 81 mg tablet,delayed release (DR/EC) 81 mg PO DAILY Referrals / Follow Up: Chrissy Elizabeth MD [Primary Care Provider] - Disposition Disposition (needs filled in before D/C Order can be placed): Home, Self Care Charges/Coding Visit Charges Inpatient E&M: 56302 Disch Hosp >30min
--- NOTE | 2024-01-01 09:34 | CASEMGMT ---
Pt has an order for DC placed. RN CM to pt room at this time. Pt and daughter at bedside. This RN CM reviewed how the pt did with therapy. PT was cleared by OT. Pt states that he feels safe discharging home today with the support of his . Pt denies the need for additional therapy including HHC, OP Tx, or CCN. Pt states that his daughter will drive the pt home today. Pt denies any further questions or concerns to this RN CM and is ready for DC home today.
[2024-01-01] MEDS: Potassium Chloride Oral Tablet 20 MEQ 40 MEQ PO (10:00)
--- NOTE | 2024-01-01 10:43 | PHA.DC.MC.R ---
Pharmacy [facility] Pharm[facility] Service has performed discharge medication reconciliation and counseling for this patient. The patient's discharge medication list was reviewed for discrepancies and discrepancies were resolved. The patient was counseled on the following discharge medications and changes in medications for homegoing were reviewed. 1. PRILOSEC 2. DC PLAVIX 3. HOLD ASPIRIN [id number] The Reason for Use, instructions for use, and potential side effects were reviewed for all new medications. The patient's questions regarding all of their medications were answered. The patient was able to verbally demonstrate an understanding of their discharge medications. The patient was counselled by Walter Glez PharmD Candidate Medications at Discharge Home Medications levetiracetam 500 mg tablet 500 mg PO BID seizuzres 02/15/16 levothyroxine 100 mcg tablet (Euthyrox) 100 mcg PO DAILY thyroid 06/05/21 acetaminophen 325 mg tablet 650 mg PO Q4H PRN fever or pain 09/13/21 atorvastatin 40 mg tablet 40 mg PO QHS cholesterol 09/13/21 Handicap placard #1 ea 11/23/21 metoprolol tartrate 25 mg tablet 50 mg PO BID cardiac 12/29/23 omeprazole 40 mg capsule,delayed release 40 mg PO BID #60 caps 01/01/24
== END 2024-01-01 10:48 | disposition home or self-care (01) | DRG 378 ==
LOC: ED 22:03 → PCU 22:30
PROVIDERS: Anesthesiology; Internal Medicine Gastroenterology; Admitting Provider Internal Medicine; Emergency Provider Emergency Medicine; PCP Family Medicine; Visit Provider Internal Medicine
PROC: 0DJD8ZZ Inspection of Lower Intestinal Tract, Via Natural or Artificial Opening Endoscopic (ICD-10-PCS; CPT 45378; principal; 2023-12-31 08:45)
DX: K26.4 Chronic or unspecified duodenal ulcer with hemorrhage (principal); D62 Acute posthemorrhagic anemia; D68.32 Hemorrhagic disorder due to extrinsic circulating anticoagulants; G40.909 Epilepsy, unspecified, not intractable, without status epilepticus; E03.9 Hypothyroidism, unspecified; I10 Essential (primary) hypertension; I65.23 Occlusion and stenosis of bilateral carotid arteries; E78.5 Hyperlipidemia, unspecified; M19.90 Unspecified osteoarthritis, unspecified site; I25.10 Atherosclerotic heart disease of native coronary artery without angina pectoris; K22.70 Barrett's esophagus without dysplasia; I25.2 Old myocardial infarction; K21.9 Gastro-esophageal reflux disease without esophagitis; K29.80 Duodenitis without bleeding; T45.525A Adverse effect of antithrombotic drugs, initial encounter; T39.015A Adverse effect of aspirin, initial encounter; R55 Syncope and collapse; H91.91 Unspecified hearing loss, right ear; Z79.82 Long term (current) use of aspirin; Z79.890 Hormone replacement therapy; Z79.899 Other long term (current) drug therapy; Z87.891 Personal history of nicotine dependence; Z95.1 Presence of aortocoronary bypass graft; Z95.5 Presence of coronary angioplasty implant and graft
CPT/HCPCS: 36415; 80048; 80053; 83605; 83735; 84100; 84443; 84484; 85014; 85018; 85025; 85610; 85730; 86850; 86900; 86901; 88305; 88312; 88341; 88342; 93005; 94668; 97162; 97166; 97535; 99284; 99406; J7030; J7050; J7120; A4216; J3490

== ENCOUNTER → 2024-01-05 | Outpatient (CLI) | payer MEDICARE, SELFPAY ==
[2021-12-29 08:18] VITALS: BMI 25.2
--- NOTE | 2024-01-05 09:52 | CDU_ITS ---
Reason For Study: Stenosis Rt. Velocities/BP Lt. Velocities/BP Prox CCA 93.7/16.3 cm/sec. Prox CCA 106.7/27.7 cm/sec. Mid CCA 71.6/13.9 cm/sec. Mid CCA 86.9/23.0 cm/sec. Dist CCA 58.1/13.9 cm/sec. Dist CCA 78.1/24.1 cm/sec. Prox ICA 360.3/104.9 cm/sec. Prox ICA 172.6/45.6 cm/sec. Mid ICA 100.1/32.0 cm/sec. Mid ICA 177.8/48.2 cm/sec. Dist ICA 76.8/23.7 cm/sec. Dist ICA 114.3/44.9 cm/sec. Rt. ICA/CCA = 5.03. Lt. ICA/CCA = 2.05. Prox ECA 80.6/0.0 cm/sec. Prox ECA 107.0/0.0 cm/sec. Rt. Vert. 71.0/23.7 cm/sec. Lt. Vert. 53.5/18.5 cm/sec. Right Extracranial There is heterogeneous, irregular atherosclerotic plaque noted in the right common carotid artery. There is heterogeneous, irregular atherosclerotic plaque noted in the right internal carotid artery. There is heterogeneous, irregular atherosclerotic plaque noted in the right external carotid artery. Antegrade flow is noted in the right vertebral artery. Left Extracranial There is homogeneous, smooth atherosclerotic plaque noted in the left common carotid artery. There is heterogeneous, irregular atherosclerotic plaque noted in the left internal carotid artery. There is heterogeneous, irregular atherosclerotic plaque noted in the left external carotid artery. Antegrade flow is noted in the left vertebral artery. Procedure Carotid Duplex [id number]. This is a Carotid Duplex examination using B-mode, color flow and specral Doppler. Exam performed in department. VL/Carotid Duplex Ultrasound Interpretation Summary Severe (>70%) stenosis right extracranial internal carotid. Moderate (50-69%) s tenosis left extracranial internal carotid. Flow within the vertebral arteries is antegrade bilaterally. Ordering Physician: Siddharth Feldman Referring Physician: MD Siddharth Feldman Performed By: Tammy Alford RVT and Student
== END | disposition home or self-care (01) ==
LOC: CVS 09:51
PROVIDERS: PCP Family Medicine; Referring Provider Surgery Vascular Surgery; Visit Provider Surgery Vascular Surgery
DX: I65.23 Occlusion and stenosis of bilateral carotid arteries (principal); I63.9 Cerebral infarction, unspecified
CPT/HCPCS: 93880

== ENCOUNTER → 2024-02-26 | Outpatient (CLI) | payer MEDICARE, SELFPAY ==
[2021-12-29 08:18] VITALS: BMI 25.2
[2024-02-21 09:49] LABS: BUN 21 mg/dL (7-18); Creatinine, Serum 1.06 mg/dL (0.70-1.30); EST Glomerular Filtration Rate 72 mL/min (>60); Est Glom Filt Rate - Afr Amer 87 mL/min (>60)
--- NOTE | 2024-02-26 12:30 | CT_ITS ---
STUDY: CTA NECK WITH CONTRAST REASON FOR EXAM: Male, 78 years old. CAROTID STENOSIS RADIATION DOSAGE (If Supplied By Facility): CTDIvol = ( 14.35 ) mGy, DLP = ( 491.76 ) mGycm TECHNIQUE: CT angiography with multi-detector data acquisition was performed from the aortic arch to the skull base following intravenous administration of IV 100mL [id number]-370. MIP images were reconstructed from the axial data set. Post-processing of the angiographic images was performed, with multiplanar reformation and 3D reconstruction. Individualized dose optimization techniques were used for this CT. COMPARISON: None. FINDINGS: AORTIC ARCH: There is atherosclerotic calcific plaque formation of the aortic arch and great vessels arising from the aortic arch, without a hemodynamically significant stenosis. There is a normal origin of the brachiocephalic, left common carotid, and left subclavian arteries. RIGHT CAROTID ARTERIES: Normal right common carotid artery (CCA). Normal right common carotid bulb. There is mild atherosclerotic plaque formation of the origin of the right internal carotid artery with less than 50% cross sectional diameter stenosis. Normal visualized cervical portion of the right internal carotid artery. Normal origin of the right external carotid artery (ECA). LEFT CAROTID ARTERIES: Normal left common carotid artery (CCA). Normal left common carotid bulb. There is extensive atherosclerotic plaque formation of the origin of the left internal carotid artery with an estimated stenosis of greater than 70%. Normal visualized cervical portion of the left internal carotid artery. Normal origin of the left external carotid artery (ECA). VERTEBRAL ARTERIES: Normal bilateral vertebral arteries. CT/CTA Neck W/WO Contrast IMPRESSION: Calcific plaque at the origin left internal carotid artery causing greater than 70% narrowing. Calcific plaque at the origin of the right internal carotid artery causing less than 50% stenosis. Electronically Signed: Britton Toro MD at 14:42 EDT ,
== END | disposition home or self-care (01) ==
LOC: CT 12:26
PROVIDERS: PCP Family Medicine; Referring Provider Surgery Vascular Surgery; Visit Provider Surgery Vascular Surgery
DX: I65.23 Occlusion and stenosis of bilateral carotid arteries (principal); E78.00 Pure hypercholesterolemia, unspecified; I10 Essential (primary) hypertension; Z95.1 Presence of aortocoronary bypass graft; Z86.73 Personal history of transient ischemic attack (TIA), and cerebral infarction without residual deficits
CPT/HCPCS: 36415; 70498; 82565; 84520; Q9967

== ENCOUNTER → 2024-07-08 | Outpatient (CLI) | payer MEDICARE, SELFPAY ==
[2021-12-29 08:18] VITALS: BMI 25.2
--- NOTE | 2024-07-08 09:57 | ECHOD_ITS ---
Reason For Study: OTHER Procedure This was a 2D Doppler, Color Flow transthoracic echocardiogram. Exam performed in department. Left Ventricle Mild concentric left ventricular hypertrophy. Normal LV size. The left ventricular ejection fraction is 60 %. Stage 1 diastolic dysfunction. Right Ventricle Normal right ventricle. Atria The left and right atria are normal. Mitral Valve Redundant mitral chords. Possible chordal MIREYA with no significant LVOT gradient. Tricuspid Valve Mild tricuspid valve insufficiency. Normal pulmonary artery pressure. Aortic Valve Aortic sclerosis, no stenosis. Mild (1+) aortic valve insufficiency. Pulmonic Valve The pulmonic valve is not well visualized. Great Vessels Normal sized aortic root. Pericardium/Pleural No pericardial effusion. MMode/2D Measurements & Calculations LVIDd: 4.0 cm IVSd: 1.2 cm LVOT diam: 2.0 cm LVIDs: 2.5 cm LVPWd: 1.0 cm LVOT area: 3.1 cm2 RVDd: 3.1 cm FS: 38.8 % LAV(MOD-bp): 50.0 ml LVAd ap4: 23.4 cm2 SV(MOD-sp4): 37.5 ml LAV(MOD-bp) Indexed: 25.9 ml/m2 LVLd ap4: 7.7 cm SI(MOD-sp4): 19.4 ml/m2 LAV(MOD-sp2): 54.4 ml EDV(MOD-sp4): 57.7 ml LAV(MOD-sp4): 42.8 ml EDV(sp4-el): 60.6 ml LVAs ap4: 12.7 cm2 LVLs ap4: 6.4 cm ESV(MOD-sp4): 20.2 ml ESV(sp4-el): 21.3 ml EF(MOD-sp4): 65.0 % EF(sp4-el): 64.9 % SV(sp4-el): 39.3 ml LA A4 area: 17.3 cm2 LA dimension(2D): 3.2 cm RA A4 area: 11.5 cm2 Time Measurements MV dec time: 0.40 sec Doppler Measurements & Calculations MV E max efra: 53.6 cm/sec Lat Peak E' Efra: 10.5 cm/sec Med Peak E' Efra: 5.2 cm/sec MV A max efra: 89.9 cm/sec E/E' lat: 5.1 E/E' med: 10.3 MV E/A: 0.60 MV V2 max: 83.2 cm/sec Ao V2 max: 131.7 cm/sec MV max P.8 mmHg MV dec slope: 136.0 cm/sec2 Ao max P.9 mmHg MV V2 mean: 42.6 cm/sec Ao V2 mean: 89.4 cm/sec MV mean P.84 mmHg Ao mean P.7 mmHg MV V2 VTI: 27.0 cm Ao V2 VTI: 33.5 cm AV (velocity ratio): 0.83 MVA(VTI): 3.3 cm2 ALONA(I,D): 2.6 cm2 ALONA(V,D): 2.6 cm2 LV V1 max: 110.6 cm/sec SV(LVOT): 87.7 ml LV V1 max P.9 mmHg LV V1 mean P.7 mmHg LV V1 mean: 75.1 cm/sec LV V1 VTI: 27.9 cm ECHO/Echo Complete Interpretation Summary Mild concentric left ventricular hypertrophy. The left ventricular ejection fraction is 60 %. Stage 1 diastolic dysfunction. Redundant mitral chords. Possible chordal MIREYA with no significant LVOT gradient . Aortic sclerosis, no stenosis. Mild (1+) aortic valve insufficiency. Mild tricuspid valve insufficiency. Ordering Physician: Crispin Bailey Referring Physician: Crispin Bailey Performed By: Clair Madison RCS
--- NOTE | 2024-07-08 09:57 | CDU_ITS ---
Reason For Study: Carotid artery stenosis Rt. Velocities/BP Lt. Velocities/BP Prox CCA 66.4/6.9 cm/sec. Prox CCA 62.6/11.6 cm/sec. Mid CCA 64.5/9.7 cm/sec. Mid CCA 67.4/15.4 cm/sec. Dist CCA 49.4/9.7 cm/sec. Dist CCA 67.9/8.8 cm/sec. Prox ICA 279/62.4 cm/sec. Prox ICA 70.2/14.5 cm/sec. Mid ICA 189.4/29.2 cm/sec. Mid ICA 139/24.8 cm/sec. Dist ICA 63/16.8 cm/sec. Dist ICA 77.7/26.2 cm/sec. Rt. ICA/CCA = 4.33. Lt. ICA/CCA = 2.06. Prox ECA 74 cm/sec. Prox ECA 86.3/6.9 cm/sec. Rt. Vert. 27.3/8.1 cm/sec. Lt. Vert. 56.4/14.6 cm/sec. Right Extracranial There is heterogeneous, irregular atherosclerotic plaque noted in the right common carotid artery. There is heterogeneous, irregular atherosclerotic plaque noted in the right internal carotid artery. There is heterogeneous, irregular atherosclerotic plaque noted in the right external carotid artery. Antegrade flow is noted in the right vertebral artery. Left Extracranial There is homogeneous, smooth atherosclerotic plaque noted in the left common carotid artery. There is heterogeneous, irregular atherosclerotic plaque noted in the left internal carotid artery. There is heterogeneous, irregular atherosclerotic plaque noted in the left external carotid artery. Antegrade flow is noted in the left vertebral artery. Procedure Carotid Duplex [id number]. This is a Carotid Duplex examination using B-mode, color flow and specral Doppler. Exam performed in department. VL/Carotid Duplex Ultrasound Interpretation Summary Severe (>70%) stenosis right extracranial internal carotid. Moderate (50-69%) stenosis left extracranial internal carotid. Patent and antegrade vertebrals bilaterally. Ordering Physician: Crispin Bailey Referring Physician: Chrissy Elizabeth Performed By: Tammy Alford RVT
[2024-07-08 11:26] LABS: ALB/GLOB Ratio 0.8 RATIO (0.9-2.4); AST(SGOT) 14 U/L (15-37); Alanine Aminotransfer ALT/SGPT 22 U/L (16-61); Albumin, Serum 3.2 g/dL (3.2-5.0); Alkaline Phosphatase 106 U/L (45-117); Anion Gap 6 (5-15); BUN 17 mg/dL (7-18); BUN/Creat Ratio 15.9 RATIO (10-20); Calcium,Total 9.1 mg/dL (8.5-10.1); Chloride 105 mmol/L (98-107); Cholesterol 114 mg/dL (200); Creatinine, Serum 1.07 mg/dL (0.70-1.30); EST Glomerular Filtration Rate 71 mL/min (>60); Est Glom Filt Rate - Afr Amer 86 mL/min (>60); Glucose 105 mg/dL (74-106); High Density Lipoprotein 48 mg/dL; Protein, Total 7.2 g/dL (6.4-8.2); Sodium Level 136 mmol/L (136-145); Triglycerides 97 mg/dL; Very Low Density Lipoprotein 19 mg/dL (5-40)
== END | disposition home or self-care (01) ==
PROVIDERS: PCP Family Medicine; Referring Provider Internal Medicine Cardiovascular Disease; Visit Provider Internal Medicine Cardiovascular Disease
DX: I65.23 Occlusion and stenosis of bilateral carotid arteries (principal); R06.02 Shortness of breath; I25.10 Atherosclerotic heart disease of native coronary artery without angina pectoris; R53.83 Other fatigue; R55 Syncope and collapse; I10 Essential (primary) hypertension; Z95.1 Presence of aortocoronary bypass graft; E78.5 Hyperlipidemia, unspecified
CPT/HCPCS: 36415; 80053; 80061; 93306; 93880

== ENCOUNTER 2024-08-25 11:39 | Emergency (ER) | payer MEDICARE, SELFPAY ==
[2024-07-11 08:56] VITALS: BMI 25.2
[2024-08-25 11:40] VITALS: BP 155/86; PULSE 71; RESP 17; TEMP 36.7; O2SAT 99; BMI 26.9
--- NOTE | 2024-08-25 11:47 | EKG12_ITS ---
Test Reason : SOB Blood Pressure : */* mmHG Vent. Rate : 65 BPM Atrial Rate : 65 BPM P-R Int : 154 ms QRS Dur : 76 ms QT Int : 376 ms P-R-T Axes : * 23 49 degrees QTcB Int : 391 ms Normal sinus rhythm Normal ECG Confirmed by PATRICIA VANG, ELSA ([id number]), scientific editor HOA RO ([id number] on 08/26/2024 8:21:42 AM Referred By: Serjio Velazquez Confirmed By: ELSA GOMEZ MD
--- NOTE | 2024-08-25 11:49 | EX.ED.DYSGE1 ---
HPI <DONAVAN Garner - Last Filed: 08/25/24 13:40> History of Present Illness Chief Complaint: Shortness of Breath Narrative Narrative: Patient is a 79-year-old male with history of CVA, hypertension, CABG, thyroidism presenting to the emergency department for shortness of breath. Patient states that roughly 9 in the morning, the patient had a coughing fit, felt like he could not breathe and catch his breath. Patient states he is continue to have cough, feeling of shortness of breath he is here for evaluation. Denies any fever chills, denies any sick contacts. Patient [place] any weight gain. Denies any recent travel, recent surgery, history of blood clots the legs or lungs. PFS <DONAVAN Garner - Last Filed: 08/25/24 13:40> [facility] Medical History History of arteriovenous malformation (AVM) History of intracranial hemorrhage Cerebral arteriovenous malformation Dyslipidemia CAD (coronary artery disease) Deafness in right ear Pleural effusion Bilateral carotid artery stenosis Seizure disorder Hypothyroidism History of left heart catheterization (LHC) (~08/31/21) Atherosclerotic heart disease of [place] coronary artery without angina pectoris HTN (hypertension) Non-ST elevated myocardial infarction (non-STEMI) Seizure Home Medications ?Medication ?Instructions ?Recorded ?Last Taken ?Type levetiracetam 500 mg tablet 500 mg PO BID seizuzres 02/15/16 08/11/16 History levothyroxine 100 mcg tablet 100 mcg PO DAILY thyroid 06/05/21 Unknown History (Euthyrox) atorvastatin 40 mg tablet 40 mg PO QHS cholesterol 09/13/21 Unknown History metoprolol tartrate 25 mg tablet 50 mg PO BID cardiac 12/29/23 Unknown History aspirin 81 mg tablet,delayed 81 mg PO QDAY 06/19/24 Unknown History release (Adult Aspirin Regimen) Handicap placard #1 ea 07/29/24 Unknown Rx ferrous sulfate 325 mg (65 mg 325 mg PO QDAY 07/29/24 Unknown History iron) tablet,delayed release albuterol sulfate 90 mcg/actuation 2 puff inhalation Q4H PRN PRN 08/25/24 Unknown Rx aerosol inhaler (Ventolin HFA) Wheezing #8.5 grams prednisone 50 mg tablet 50 mg PO DAILY 5 days #5 tabs 08/25/24 Unknown Rx Allergy/AdvReac Type Severity Reaction Status Date / Time No Known Allergies Allergy Verified 08/25/24 11:40 Family History Mother CAD (coronary artery disease) Father Carotid artery disease Surgical History History of elbow surgery History of carpal tunnel surgery History of back surgery History of coronary artery bypass surgery (~09/02/21) Hx of brain surgery Social History household members: spouse Smoking Status: Former smoker alcohol intake: never substance use type: does not use caffeine: No ROS <DONAVAN Garner - Last Filed: 08/25/24 13:40> ROS ED ROS Narrative Constitutional: Negative for fever, chills, weight loss, weakness Eyes: Negative for vision loss, vision change, double vision ENT: Negative for any sore throat, ear pain, congestion Cardiovascular: Negative for any chest pain,palpitations. Positive chest tightness Respiratory: Negative for any sputum production, hemoptysis. Positive for cough, dyspnea, dyspnea on exertion, orthopnea Gastrointestinal: Negative for any abdominal pain, nausea, vomiting, diarrhea, constipation, blood in stool, blood in vomit : Negative for any urinary frequency, dysuria, retention, blood in urine Muscle skeletal: Negative for any neck pain, back pain Neurological: Negative for any headache, syncope, dizziness Skin: Negative for any rashes, itching, abrasions, lacerations Psychiatric: Negative for any depression, anxiety, stress, suicidal ideation, homicidal ideation Hematologic: Negative for any excessive bruising, easy bleeding EXAM <DONAVAN Garner - Last Filed: 08/25/24 13:40> Physical Exam Narrative Exam Narrative: Vital signs reviewed. HEET: Head normocephalic atraumatic, TMs clear bilaterally. Posterior pharynx is clear, moist mucous membranes. Nares clear bilaterally. Neck: Supple with no lymphadenopathy or tenderness. No signs of meningismus. Cardiac: Regular rate and rhythm no murmurs gallops or rubs, equal peripheral pulses bilaterally. Respiratory: Patient has expiratory wheezes throughout pulmonary examination, worse on the right than the left. Some rhonchorous breath sounds in the upper lobes bilaterally. No chest tenderness. Abdomen: Soft, nontender, nondistended. No abdominal bruit or pulsatile masses. No hepatosplenomegaly Extremities: No peripheral edema, no signs of gross trauma or deformity. Active full range of motion of all extremities. Neuro: Cranial nerves II through XII intact, no focal neurological deficits. Skin: Clean dry and intact with no rash, purpura, petechiae, vesicles or pustules. Backs/flank: No CVA tenderness, no midline spinal tenderness, no deformity. Psych: Normal mood and affect. No SI, HI or acute psychosis. Const Vital Signs: 08/25/24 11:40 08/25/24 12:02 08/25/24 12:02 Temperature 98.0 F Temperature Source Oral Pulse Rate 71 72 Respiratory Rate 17 17 Respiratory Effort Short of Breath Respiratory Depth Shallow Respiratory Pattern Tachypnea Normal Blood Pressure 155/86 H Blood Pressure Mean 109 Pulse Ox 99 Oxygen Delivery Method Room Air 08/25/24 12:03 08/25/24 12:06 08/25/24 12:54 Temperature 98.7 F Temperature Source Oral Pulse Rate 67 72 Respiratory Rate 15 19 H Respiratory Effort Respiratory Depth Respiratory Pattern Blood Pressure 133/80 H 131/72 H Blood Pressure Mean 97 91 Pulse Ox 100 97 Oxygen Delivery Method Room Air Room Air Room Air 08/25/24 13:00 08/25/24 13:47 Temperature 98.7 F 98.1 F Temperature Source Oral Pulse Rate 71 69 Respiratory Rate 13 16 Respiratory Effort Respiratory Depth Respiratory Pattern Blood Pressure 113/69 130/40 H Blood Pressure Mean 83 70 Pulse Ox 97 95 Oxygen Delivery Method Room Air Positive well nourished and well developed General Appearance ED: well developed <Dr. Serjio Velazquez, DO - Last Filed: 08/25/24 13:51> Physical Exam Const Vital Signs: 08/25/24 11:40 08/25/24 12:02 08/25/24 12:02 Temperature 98.0 F Temperature Source Oral Pulse Rate 71 72 Respiratory Rate 17 17 Respiratory Effort Short of Breath Respiratory Depth Shallow Respiratory Pattern Tachypnea Normal Blood Pressure 155/86 H Blood Pressure Mean 109 Pulse Ox 99 Oxygen Delivery Method Room Air 08/25/24 12:03 08/25/24 12:06 08/25/24 12:54 Temperature 98.7 F Temperature Source Oral Pulse Rate 67 72 Respiratory Rate 15 19 H Respiratory Effort Respiratory Depth Respiratory Pattern Blood Pressure 133/80 H 131/72 H Blood Pressure Mean 97 91 Pulse Ox 100 97 Oxygen Delivery Method Room Air Room Air Room Air 08/25/24 13:00 08/25/24 13:47 Temperature 98.7 F 98.1 F Temperature Source Oral Pulse Rate 71 69 Respiratory Rate 13 16 Respiratory Effort Respiratory Depth Respiratory Pattern Blood Pressure 113/69 130/40 H Blood Pressure Mean 83 70 Pulse Ox 97 95 Oxygen Delivery Method Room Air MDM <DONAVAN Garner - Last Filed: 08/25/24 13:40> [facility] Lab Data Labs: Laboratory Results - last 24 hr 08/25/24 11:44 WBC 7.8 RBC 5.04 Hgb 15.0 Hct 45.3 MCV 89.9 MCH 29.8 MCHC 33.1 RDW Std Deviation 48.2 H RDW Coeff of Víctor 14.6 Plt Count 236 MPV 10.5 Immature Gran % (Auto) 0.800 Neut % (Auto) 62.2 Lymph % (Auto) 22.5 [place] % (Auto) 8.3 Eos % (Auto) 5.2 H Baso % (Auto) 1.0 Absolute Neuts (auto) 4.8 Absolute Lymphs (auto) 1.74 Nucleated RBC % 0 Sodium 141 Potassium 4.3 Chloride 105 Carbon Dioxide 25.7 Anion Gap 10 BUN 16 Creatinine 1.27 H Estim Creat Clear Calc 47.94 L Est GFR (MDRD) Non-Af 58 L BUN/Creatinine Ratio 12.9 Glucose 135 H Calcium 9.6 Troponin T High Sens 8 NT pro BNP II 176 Radiography Diagnostic Testing: Clinical Impression(s) from Imaging Studies Chest X-Ray 08/25/24 11:52 IMPRESSION: No acute airspace abnormality. Reading Location: [facility] EKG Normal sinus rhythm rate 65: Attestation: I personally reviewed and interpreted this EKG as follows: Interpretation: Sinus Rhythm Comments: Normal sinus rhythm, rate 65 bpm, NV 254 ms, QRS duration 76 ms, no acute ST elevation, no acute infarct noted. Treatment and Re-Evaluation :: Differential diagnosis includes however is not limited to: COVID-19, influenza, RSV, community-acquired pneumonia, COPD exacerbation, fluid overload, CHF exacerbation, ACS, PR Patient appears generally well, vital signs are stable, patient is nontoxic-appearing. Presenting to the emergency department for complaints of chest tightness, cough, feeling of dyspnea. Patient does have some adventitious lung sounds, chest x-ray two-view will be ordered. Patient will receive a COVID-19 influenza RSV swab. Breathing treatments, IV steroids. Patient also sees the basic laboratory values. All radiologic examinations were read, reviewed by the emergency department attending. From these reads, a plan of care will be put in place. Patient's chest x-ray shows no acute abnormality. Patient's laboratory values show a normal CBC, patient's chemistries show slight increase in creatinine to 1.27, GFR 58, glucose 135, proBNP is negative, troponin is 8 which is negative. At this time, there is no evidence of any ACS or PR. There is no evidence of any pneumonia. COVID-19 influenza RSV was negative. Patient did respond well to breathing treatments, on reevaluation still has some slight expiratory wheeze. Patient will be given albuterol inhaler, short course steroids. He is instructed to follow-up closely with his PCP. If the patient becomes fevered, more shortness of breath, he will return. All questions answered, stable for discharge. <Dr. Serjio Velazquez, DO - Last Filed: 08/25/24 13:51> [facility] Narrative Medical decision making narrative: I have personally performed a face to face assessment of the patient and have reviewed the ALYX Note. I performed a substantive portion of the visit including all aspects of the following. My burgess findings include: History: Patient presents with a coughing episode that began today. Patient states he was sitting in a chair when he started to cough. Patient states he coughed up some white phlegm. Patient denies any fevers or chills. Patient states he has been having some sinus drainage recently. Patient admits to some postnasal drainage and rhinorrhea. Patient denies any chest pain. Exam: Vital signs are stable. Patient is afebrile. Patient is in no acute distress. Oral mucosa is pink and moist. Neck is supple. Trachea is midline. There is no JVD. Heart was regular rate and rhythm. Lungs sounds show diffuse mild expiratory wheezing. There is good respiratory effort noted. Abdomen is soft. Bowel sounds are normal. There is no tenderness. Cranial nerves II through XII are intact. There are no focal motor or sensory deficits noted. Medical Decision Making: Differential diagnosis includes viral upper respiratory infection, bronchitis, pneumonia, cardiac dysrhythmia, cardiac ischemia, electrolyte abnormality, and congestive heart failure. EKG will be obtained to assess for cardiac dysrhythmia and cardiac ischemia. Chest x-ray will be obtained to assess for pneumonia and bronchitis. CBC will be obtained to assess for leukocytosis and anemia. Basic metabolic profile will be obtained to assess for electrolyte abnormality and renal function. High-sensitivity troponin will be obtained to assess for cardiac ischemia. 2-hour repeat high-sensitivity troponin will be obtained to assess for ongoing cardiac ischemia. BNP will be obtained to assess for congestive heart failure. COVID-19, influenza, and RSV PCR will be obtained to assess for viral illness. Patient was given a DuoNeb aerosol here. Patient was given a dose of Solu-Medrol. PA and lateral chest x-ray was obtained. There are 2 views. On my independent interpretation, lung powers are clear. There is normal cardiac silhouette. Bony thorax is normal. There is no acute process noted. Radiologist also interpreted the x-ray and agrees. EKG was obtained. On my independent interpretation, it showed a normal sinus rhythm with a rate of 65. NV interval, QRS interval, and QTc intervals were all normal. [place] was normal. There are no acute ST or T wave changes. CBC was reviewed and was within normal limits. Basic metabolic profile was reviewed. Creatinine was slightly elevated at 1.27. The remainder was within normal limits. High-sensitivity troponin was reviewed and was normal at 8. proBNP was reviewed and was normal at 176. Patient was feeling better on reevaluation. Patient was advised of his findings. Patient was able to ambulate with a pulse oximeter of 95% or higher. Patient was instructed to follow-up with his primary care physician in 5 to 7 days. Patient understood and was agreeable with the plan. All questions were answered. Lab Data Labs: Laboratory Results - last 24 hr 08/25/24 11:44 WBC 7.8 RBC 5.04 Hgb 15.0 Hct 45.3 MCV 89.9 MCH 29.8 MCHC 33.1 RDW Std Deviation 48.2 H RDW Coeff of Víctor 14.6 Plt Count 236 MPV 10.5 Immature Gran % (Auto) 0.800 Neut % (Auto) 62.2 Lymph % (Auto) 22.5 [place] % (Auto) 8.3 Eos % (Auto) 5.2 H Baso % (Auto) 1.0 Absolute Neuts (auto) 4.8 Absolute Lymphs (auto) 1.74 Nucleated RBC % 0 Sodium 141 Potassium 4.3 Chloride 105 Carbon Dioxide 25.7 Anion Gap 10 BUN 16 Creatinine 1.27 H Estim Creat Clear Calc 47.94 L Est GFR (MDRD) Non-Af 58 L BUN/Creatinine Ratio 12.9 Glucose 135 H Calcium 9.6 Troponin T High Sens 8 NT pro BNP II 176 Radiography Diagnostic Testing: Clinical Impression(s) from Imaging Studies Chest X-Ray 08/25/24 11:52 IMPRESSION: No acute airspace abnormality. Reading Location: [facility] Discharge Plan Triage Chief Complaint: Shortness of Breath ED Midlevel Provider: Akhil Sauceda ED Provider: Serjio Velazquez Dx/Rx/DC Orders Clinical Impression: Cough, Viral syndrome Instructions: ED Viral Syndrome (Adult), ED URI, Viral, No Abx (Adult) Prescriptions: New albuterol sulfate [Ventolin HFA] 90 mcg/actuation HFA aerosol inhaler 2 puff inhalation Q4H PRN PRN (Reason: Wheezing) Qty: 8.5 0RF prednisone 50 mg tablet 50 mg PO DAILY 5 Days Qty: 5 0RF No Action aspirin [Adult Aspirin Regimen] 81 mg tablet,delayed release (DR/EC) 81 mg PO QDAY levetiracetam 500 MG tablet 500 mg PO BID levothyroxine [Euthyrox] 100 mcg tablet 100 mcg PO DAILY metoprolol tartrate 25 mg tablet 50 mg PO BID atorvastatin 40 mg tablet 40 mg PO QHS (DME) Handicap placard See Rx Instructions .Route .MEDSUPPLY Qty: 1 0RF Rx Instructions: Expiration date: Unlimited Renew 07/29/2029 Primary Care Provider: Chrissy Elizabeth Referrals: Chrissy Elizabeth MD [Primary Care Provider] - Activity Restrictions/Additional Instructions: Please follow-up outpatient. Return for any worsening symptoms. If you come more short of breath, fever chills please return. Use the albuterol inhaler every 4-6 hours for shortness of breath, the prednisone is to take 1 tablet in the morning, start tomorrow. Print Language: Georgian Disposition Disposition: Home, Self Care Discharge Date/Time: 08/25/24 13:50
--- NOTE | 2024-08-25 11:52 | RAD_ITS ---
PROCEDURE: CHEST PA AND LATERAL REASON FOR EXAM: COUGH TECHNIQUE: Two views of the chest COMPARISON: None. FINDINGS: Cardiomediastinal silhouette is within normal limits. Status post CABG. Lungs are clear. No sizable pneumothorax. RAD/Chest PA and Lateral IMPRESSION: No acute airspace abnormality. Reading Location: [facility]
[2024-08-25 11:54] LABS: Absolute Lymphocyte Count 1.74 X10^3/uL (0.83-4.51); Absolute Neutrophil Count 4.8 X10^3/uL (2.0-7.7); Basophil# 0.08 X10^3/uL; Eosinophils% 5.2 % (0-5); Hematocrit 45.3 % (40-54); Lymphocyte # 1.74 X10^3/ul (0.83-4.51); Lymphocyte % 22.5 % (19-41); Mean Corp Hgb Conc 33.1 g/dL (32-36); Mean Corpuscular Hgb 29.8 pg (27.0-32.0); Mean Corpuscular Volume 89.9 fL (80-94); Mean Platelet Vol. 10.5 fl (6.2-12.0); Monocyte# 0.64 X10^3/uL; Monocyte% 8.3 % (0-10); NRBC Flagged by Analyzer 0 % (0-5); Neutrophil # 4.83 X10^3/uL (2.7-7.7); Neutrophil % 62.2 % (47-70); Platelet Count 236 K/mm3 (150-450); RBC Distribution Width CV 14.6 % (11.6-14.6); RBC Distribution Width SD 48.2 fl (35.1-43.9); Red Blood Count 5.04 M/mm3 (4.6-6.2); White Blood Count 7.8 K/mm3 (4.4-11.0)
[2024-08-25] MEDS: MethylPREDNISolone 125 MG/2 ML Vial 60 MG IV (12:01)
[2024-08-25 12:02] VITALS: PULSE 72; RESP 17
[2024-08-25] MEDS: Ipratropium/Albuterol Sulfate 3 ML AMPUL.NEB INHALATION (12:02)
[2024-08-25] MEDS: Albuterol 2.5 MG/3 ML VIAL.NEB. 5 MG INHALATION (12:02)
[2024-08-25 12:06] VITALS: BP 133/80; PULSE 67; RESP 15; TEMP 37.1; O2SAT 100
[2024-08-25 12:23] LABS: Troponin T High Sensitivity 8 ng/L (<=22)
[2024-08-25 12:47] LABS: Anion Gap 10 (5-15); BUN 16 mg/dL (4-19); BUN/Creat Ratio 12.9 RATIO (10-20); Calcium,Total 9.6 mg/dL (7.6-11.0); Carbon Dioxide 25.7 mmol/L (21.0-32.0); Chloride 105 mmol/L (98-108); Creatinine, Serum 1.27 mg/dL (0.70-1.20); EST Glomerular Filtration Rate 58 (>60); Estimated Creatinine Clearance 47.94 ml/min (50-250); Glucose 135 mg/dL (70-99); Potassium 4.3 mmol/L (3.3-5.1); Sodium Level 141 mmol/L (133-145)
[2024-08-25 12:54] VITALS: BP 131/72; PULSE 72; RESP 19; O2SAT 97
[2024-08-25 13:00] VITALS: BP 113/69; PULSE 71; RESP 13; TEMP 37.1; O2SAT 97
[2024-08-25 13:02] LABS: Pro- Brain NATRIURETIC PEPTIDE 176 pg/mL (<=1800)
[2024-08-25 13:47] VITALS: BP 130/40; PULSE 69; RESP 16; TEMP 36.7; O2SAT 95
== END 2024-08-25 13:50 | disposition home or self-care (01) ==
PROVIDERS: Nurse Practitioner; Emergency Provider Emergency Medicine; PCP Family Medicine; Referring Provider Emergency Medicine; Visit Provider Emergency Medicine
DX: B34.9 Viral infection, unspecified (principal); G40.909 Epilepsy, unspecified, not intractable, without status epilepticus; R05.9 Cough, unspecified; R06.02 Shortness of breath; I10 Essential (primary) hypertension; E03.9 Hypothyroidism, unspecified; E78.5 Hyperlipidemia, unspecified; I25.2 Old myocardial infarction; I25.10 Atherosclerotic heart disease of native coronary artery without angina pectoris; Z95.1 Presence of aortocoronary bypass graft; Z86.73 Personal history of transient ischemic attack (TIA), and cerebral infarction without residual deficits; Z79.82 Long term (current) use of aspirin; Z79.899 Other long term (current) drug therapy; Z79.890 Hormone replacement therapy; Z87.891 Personal history of nicotine dependence
CPT/HCPCS: 71046; 80048; 83880; 84484; 85025; 87631; 93005; 94640; 96374; 99285

== ENCOUNTER → 2024-11-14 | Outpatient (CLI) | payer MEDICARE, SELFPAY ==
[2024-07-11 08:56] VITALS: BMI 25.2
--- NOTE | 2024-11-14 12:34 | CDU_ITS ---
Reason For Study Reason For Study: Right Carotid Stenosis Rt. Velocities/BP Lt. Velocities/BP Prox CCA 112.1/12.6 cm/sec. Prox CCA 88.2/15.2 cm/sec. Mid CCA 81.4/11.4 cm/sec. Mid CCA 69.1/12.6 cm/sec. Dist CCA 51.9/11.4 cm/sec. Dist CCA 63.0/12.6 cm/sec. Prox ICA 295.4/56.1 cm/sec. Prox ICA 146.2/29.9 cm/sec. Mid ICA 228.7/40.4 cm/sec. Mid ICA 172.5/36.4 cm/sec. Dist ICA 55.1/12.3 cm/sec. Dist ICA 99.7/23.0 cm/sec. Rt. ICA/CCA = 3.6. Lt. ICA/CCA = 2.5. Prox ECA 77.8/0.0 cm/sec. Prox ECA 94.2/0.0 cm/sec. Rt. Vert. 45.8/11.4 cm/sec. Lt. Vert. 70.5/15.7 cm/sec. Right Extracranial There is intimal thickening but no significant atherosclerotic plaque noted in the right common carotid artery. There is heterogeneous, irregular atherosclerotic plaque noted in the right internal carotid artery. There is heterogeneous, irregular atherosclerotic plaque noted in the right external carotid artery. Antegrade flow is noted in the right vertebral artery. Left Extracranial There is heterogeneous, smooth atherosclerotic plaque noted in the left common carotid artery. There is heterogeneous, irregular atherosclerotic plaque noted in the left internal carotid artery. There is heterogeneous, irregular atherosclerotic plaque noted in the left external carotid artery. Antegrade flow is noted in the left vertebral artery. Procedure Carotid Duplex 88116. This is a Carotid Duplex examination using B-mode, color flow and specral Doppler. Exam performed in department. VL/Carotid Duplex Ultrasound Interpretation Summary Severe (>70%) stenosis right extracranial internal carotid. Moderate (50-69%) stenosis left extracranial internal carotid. Patent and antegrade vertebrals bilaterally. Ordering Physician: Serjio Castaneda Referring Physician: Serjio Castaneda MD Performed By: Sera Gallardo, RVT
== END | disposition home or self-care (01) ==
LOC: CVS 12:33
PROVIDERS: PCP Nurse Practitioner; Referring Provider Surgery Trauma Surgery; Visit Provider Surgery Trauma Surgery
DX: I65.21 Occlusion and stenosis of right carotid artery (principal)
CPT/HCPCS: 93880

== ENCOUNTER → 2024-12-24 | Outpatient (CLI) | payer MEDICARE, SELFPAY ==
[2024-07-11 08:56] VITALS: BMI 25.2
[2024-12-24 12:09] LABS: Cholesterol 119 mg/dL (<=200); Low Density Lipoprotein Calc. 55 mg/dL; Triglycerides 105 mg/dL; Very Low Density Lipoprotein 21 mg/dL (5-40); cholesterol:hdl ratio screen 2.78
[2024-12-24 12:12] LABS: AST(SGOT) 23 U/L (<=37); Alanine Aminotransfer ALT/SGPT 10 U/L (<=46); Albumin, Serum 3.9 g/dL (3.4-4.8); Alkaline Phosphatase 109 U/L (40-129); Bilirubin, Direct 0.26 mg/dL (0.00-0.30); Globulin 2.9 g/dL (2.2-4.2)
== END | disposition home or self-care (01) ==
LOC: LAB 11:04
PROVIDERS: PCP Nurse Practitioner; Referring Provider Physician Assistant Medical; Visit Provider Physician Assistant Medical
DX: E78.5 Hyperlipidemia, unspecified (principal)
CPT/HCPCS: 36415; 80061; 80076

== ENCOUNTER → 2025-05-13 | Outpatient (CLI) | payer MEDICARE, SELFPAY ==
[2024-07-11 08:56] VITALS: BMI 25.2
--- NOTE | 2025-05-13 12:43 | CDU_ITS ---
Reason For Study Reason For Study: Right ICA stenosis Rt. Velocities/BP Lt. Velocities/BP Prox CCA 73/7.8 cm/sec. Prox CCA 83.9/12.6 cm/sec. Mid CCA 69.2/8.8 cm/sec. Mid CCA 71.6/12.6 cm/sec. Dist CCA 60.7/10.7 cm/sec. Dist CCA 77.7/15.1 cm/sec. Prox ICA 307.2/67.9 cm/sec. Prox ICA 79/13.9 cm/sec. Mid ICA 211.1/46.2 cm/sec. Mid ICA 179.6/37.1 cm/sec. Dist ICA 83.9/17.6 cm/sec. Dist ICA 117.4/24.3 cm/sec. Rt. ICA/CCA = 4.44. Lt. ICA/CCA = 2.51. Prox ECA 84.4/6.9 cm/sec. Prox ECA 103.5/5.3 cm/sec. Rt. Vert. 33.4/9 cm/sec. Lt. Vert. 54.1/11.6 cm/sec. Right Extracranial There is homogeneous, smooth atherosclerotic plaque noted in the right common carotid artery. There is heterogeneous, irregular atherosclerotic plaque noted in the right internal carotid artery. There is heterogeneous, irregular atherosclerotic plaque noted in the right external carotid artery. Antegrade flow is noted in the right vertebral artery. Left Extracranial There is homogeneous, smooth atherosclerotic plaque noted in the left common carotid artery. There is heterogeneous, irregular atherosclerotic plaque noted in the left internal carotid artery. There is heterogeneous, irregular atherosclerotic plaque noted in the left external carotid artery. Antegrade flow is noted in the left vertebral artery. Procedure This is a Carotid Duplex examination using B-mode, color flow and specral Doppler. Carotid Duplex [id number]. Exam performed in department. VL/Carotid Duplex Ultrasound Interpretation Summary Severe (>70%) stenosis right extracranial internal carotid. Moderate (50-69%) stenosis left extracranial internal carotid. Patent and antegrade vertebrals bilaterally. Ordering Physician: Latisha Haider Referring Physician: Kat Barros Performed By: Tammy Alford RVT
== END | disposition home or self-care (01) ==
LOC: CVS 12:39
PROVIDERS: PCP Nurse Practitioner; Referring Provider Physician Assistant; Visit Provider Physician Assistant
DX: I65.23 Occlusion and stenosis of bilateral carotid arteries (principal)
CPT/HCPCS: 93880